=== PATIENT | male | born 1955 | race African-American/Black ===

== ENCOUNTER 2016-08-13 11:23 | Inpatient (IN) | payer MEDICARE, MEDICAID ==
[~2016-08-13] VITALS: Ht 180.3 cm; Wt 77.1 kg
[~2016-08-13 11:23] MED LIST: AMBIEN10 M1 ORAL; ASPIRIN81 MG ORAL; BIAXIN500 MG ORAL; DALIRESP500 MCG PO; LANTUS SOL100 UNIT/1 SUBQ; LINZESS145 MCG PO; METFORMIN HCL500 M1 ORAL; PREDNISONE10 MG ORAL; PREDNISONE5 M4 PO; SIMVASTATIN80 MG ORAL; SINGULAIR10 MG PO; SPIRIVA18 MCG INH; THEO-DUR200 MG PO
[2016-08-13] MEDS ORDERED: Albuterol ud Inhalation HHN ONE (11:30)
[2016-08-13] MEDS ORDERED: Solu-MEDROL 125mg Inj IVP ONE (11:30)
[2016-08-13] MEDS ORDERED: Ipratropium 0.02% Inh Soln 2.5ml UD HHN ONE (11:30)
[2016-08-13 12:33] LABS: APPEARANCE,URINE CLEAR; KETONES,URINE NEGATIVE (NEGATIVE); LEUKOCYTE ESTERASE ,URINE 3+ (NEGATIVE); NITRITE,URINE POSITIVE (NEGATIVE); PH,URINE 5 (4.5-8.0); PROTEIN,URINE NEGATIVE (NEGATIVE); UROBILINOGEN,URINE NORMAL MG/DL (0.0-1.0)
[2016-08-13 12:46] LABS: BACTERIA,URINE MANY /HPF; RBC,URINE 0-2 /HPF (0 - 0); SQUAMOUS EPITHELIAL CELL,UR OCCASIONAL /LPF (NONE/OCC); WBC,URINE 15-20 /HPF (0 - 0)
[2016-08-13 13:24] LABS: BASOPHILS % (AUTO) 1.4 % (0.0-2.0); EOSINOPHILS % (AUTO) 6.2 % (0.0-3.0); LYMPHOCYTES % (AUTO) 34.4 % (20.0-45.0); MEAN CORPUSCULAR HEMOGLOBIN 31.1 PG (27.0-31.0); MEAN CORPUSCULAR HGB CONC 33.3 G/DL (32.0-36.0); MEAN CORPUSCULAR VOLUME 94 FL (80-99); MEAN PLATELET VOLUME 6.5 FL (6.5-10.1); MONOCYTES % (AUTO) 13.1 % (1.0-10.0); NEUTROPHILS % (AUTO) 44.9 % (45.0-75.0); PLATELET COUNT 257 K/UL (150-450); RED CELL DISTRIBUTION WIDTH 12.4 % (11.6-14.8); WHITE BLOOD COUNT 4.1 K/UL (4.8-10.8)
[2016-08-13] MEDS ORDERED: cefTRIAXone 1 GM in NS 55 ML IVPB ONE (13:30)
[2016-08-13 13:33] LABS: TROPONIN I < 0.30 ng/mL (<=0.30)
[2016-08-13 13:36] LABS: ALANINE AMINOTRANSFERASE 38 U/L (3-41); ANION GAP 15 (5-15); ASPARTATE AMINO TRANSFERASE 37 U/L (5-40); CALCIUM 9.4 mg/dL (8.6-10.2); CARBON DIOXIDE 26 mEQ/L (20-30); CHLORIDE 101 mEQ/L (98-107); GLOMERULAR FILTRATION RATE > 60 mL/min (>60); HEMOLYSIS 10; SODIUM 142 mEQ/L (135-145); TOTAL PROTEIN 6.6 g/dL (6.6-8.7)
[2016-08-13 13:43] LABS: PROTHROMBIN TIME 10.2 SEC (9.30-11.50)
[2016-08-13 13:48] LABS: REFLEX LACTIC ACID YES OR NO YES
[2016-08-13 14:00] VITALS: BP 118/78
--- NOTE | 2016-08-13 14:17 | Diagnostic Imaging Report ---
Indication: COPD, shortness of breath, status post breathing treatment Technique: One view of the chest Comparison: 12/27/2015 Findings: Lungs are hyperinflated. Acute infiltrates, effusions, or congestion. Heart size is normal. Aorta is tortuous and ectatic. Upper mediastinum is unremarkable. No significant change Impression: No acute process Hyperinflation, consistent with COPD
--- NOTE | 2016-08-13 14:41 | Emergency Room Report ---
History of Present Illness General Chief Complaint: Dyspnea/Respdistress Source: Patient Present Illness HPI The patient presents with dyspnea. He has a history of COPD and has been coughing and short of breath. Does complain about some substernal chest pressure 2/10, not radiate. He states he took a handful of all his medications including his diabetes medicine this morning. He feels a little bit better at this time. He has a dry mouth and feels dizzy when he stands. Not on home O2. The patient is taking prednisone 5 mg and they've been unable to taper down lower than that. There is trouble controlling his blood sugar when he takes higher doses but needs to do this for treatment of his COPD. He does have a nebulizer at home. No fevers or chills. No NVD. No rashes. No joint pain, headache. No depression. Some dysuria - feels like he needs to urinate but produces little urine. No hematuria. Allergies: Coded Allergies: SHARK LIVER OIL (Unverified Allergy, Unknown, 12/27/15) Uncoded Allergies: SHARK (Allergy, Mild, RASH, 09/01/15) Patient History Past Medical History: see triage record Social History: Reports: smoking - prior Social History Narrative at home Reviewed Nursing Documentation: PMH: Agreed, PSxH: Agreed Nursing Documentation-PMH Hx Cardiac Problems: Yes Hx Asthma: Yes Hx COPD: Yes Hx Diabetes: Yes Hx Cancer: No Hx Gastrointestinal Problems: Yes - IBS Hx Neurological Problems: No Hx Cerebrovascular Accident: No - shingles Review of Systems All Other Systems: negative except mentioned in HPI Physical Exam Vital Signs Date Time Temp Pulse Resp B/P Pulse Ox O2 Delivery O2 Flow Rate FiO2 08/13/16 11:30 97.5 96 22 93/65 96 Room Air 08/13/16 11:46 40 Sp02 EP Interpretation: reviewed, normal General Appearance: well appearing, no apparent distress, GCS 15 Head: normocephalic Eyes: bilateral eye PERRL, bilateral eye normal inspection ENT: dry mucus membranes - slightly dry Neck: supple Respiratory: chest non-tender, no respiratory distress, wheezing, expiration Cardiovascular #1: regular rate, rhythm Cardiovascular #2: 2+ radial (R) Gastrointestinal: normal inspection, normal bowel sounds, non tender, no mass, non-distended Musculoskeletal: back normal, gait/station normal, normal range of motion Neurologic: alert, oriented x3, grossly normal Psychiatric: mood/affect normal Skin: normal inspection, warm/dry, other - plethoric Medical Decision Making Diagnostic Impression: Primary Impression: COPD (chronic obstructive pulmonary disease) Qualified Codes: J44.1 - Chronic obstructive pulmonary disease with (acute) exacerbation Additional Impressions: Diabetes Qualified Codes: E11.9 - Type 2 diabetes mellitus without complications UTI (urinary tract infection) Qualified Codes: N30.00 - Acute cystitis without hematuria ER Course Patient presents with chest pain dyspnea and wheezing. Differential includes acute myocardial infarction, acute coronary syndrome, COPD exacerbation, pneumonia, dehydration and hyperglycemia. Emergent evaluation EKG chest x-ray and labs be undertaken. In addition the patient will receive IV hydration, salmeterol and breathing treatments. Labs with normal WBC. Pyuria. EKG no acute injury. Normal troponin. Antibiotics begun for UTI. The patient still is dyspneic but improved. Patient needs observation after discussion with Dr. Andrea led to his request we admit the patient to the hospital. Discussed with Dr. Lopez. Laboratory Tests Test 08/13/16 12:16 08/13/16 12:52 Urine Color Yellow Urine Appearance Clear Urine pH 5 (4.5-8.0) Urine Specific [place] 1.025 (1.005-1.035) Urine Protein Negative (NEGATIVE) Urine Glucose (UA) Negative (NEGATIVE) Urine Ketones Negative (NEGATIVE) Urine Occult Blood Negative (NEGATIVE) Urine Nitrite Positive (NEGATIVE) H Urine Bilirubin Negative (NEGATIVE) Urine Urobilinogen Normal MG/DL (0.0-1.0) Urine Leukocyte Esterase 3+ (NEGATIVE) H Urine RBC 0-2 /HPF (0 - 0) H Urine WBC 15-20 /HPF (0 - 0) H Urine Squamous Epithelial Cells Occasional /LPF Urine Bacteria Many /HPF (NONE) H White Blood Count 4.1 K/UL (4.8-10.8) L Red Blood Count 4.80 M/UL (4.70-6.10) Hemoglobin 15.0 G/DL (14.2-18.0) Hematocrit 44.9 % (42.0-52.0) Mean Corpuscular Volume 94 FL (80-99) Mean Corpuscular Hemoglobin 31.1 PG (27.0-31.0) H Mean Corpuscular Hemoglobin Concent 33.3 G/DL (32.0-36.0) Red Cell Distribution Width 12.4 % (11.6-14.8) Platelet Count 257 K/UL (150-450) Mean Platelet Volume 6.5 FL (6.5-10.1) Neutrophils (%) (Auto) 44.9 % (45.0-75.0) L Lymphocytes (%) (Auto) 34.4 % (20.0-45.0) Monocytes (%) (Auto) 13.1 % (1.0-10.0) H Eosinophils (%) (Auto) 6.2 % (0.0-3.0) H Basophils (%) (Auto) 1.4 % (0.0-2.0) Prothrombin Time 10.2 SEC (9.30-11.50) Prothrombin Time INR 1.0 (0.9-1.1) PTT 30 SEC (23-33) Sodium Level 142 mEQ/L (135-145) Potassium Level 4.0 mEQ/L (3.4-4.9) Chloride Level 101 mEQ/L (98-107) Carbon Dioxide Level 26 mEQ/L (20-30) Anion Gap 15 (5-15) Blood Urea Nitrogen 7 mg/dL (7-23) Creatinine 1.0 mg/dL (0.7-1.2) Estimate Glomerular Filtration Rate > 60 mL/min (>60) Glucose Level 171 mg/dL (74-106) H Lactic Acid Level 2.70 mmol/L (0.66-2.22) H Calcium Level 9.4 mg/dL (8.6-10.2) Total Bilirubin < 0.2 mg/dL (0.0-1.2) Aspartate Amino Transferase (AST) 37 U/L (5-40) Alanine Aminotransferase (ALT) 38 U/L (3-41) Alkaline Phosphatase 53 U/L (40-129) Total Creatine Kinase 83 U/L (38-174) Troponin I < 0.30 ng/mL (<=0.30) Pro-B-Type Natriuretic Peptide 141 pg/mL (0-125) H Total Protein 6.6 g/dL (6.6-8.7) Albumin 3.4 g/dL (3.5-5.2) L Globulin 3.2 g/dL Albumin/Globulin Ratio 1.0 (1.0-2.7) Microbiology Date/Time Source Procedure Growth Status 08/13/16 12:52 Nasal Nares Influenza Types A,B Antigen (BETTINA) - Final Complete EKG Diagnostic Results Rate: normal Rhythm: NSR ST Segments: no acute changes - bifascicular block Rhythm Strip Diag. Results EP Interpretation: yes Rhythm: NSR, no PVC's, no ectopy Chest X-Ray Diagnostic Results EP Interpretation: Yes Findings: no effusion, no pneumothorax, other - scoleosis, COPD Number of Views: 1 Last Vital Signs Date Time Temp Pulse Resp B/P Pulse Ox O2 Delivery O2 Flow Rate FiO2 08/13/16 16:18 97.5 67 21 118/78 98 Room Air 40 Status: improved Disposition: ADMITTED INPATIENT Condition: Serious Referrals: JUAQUIN ANDREA (PCP) Myke Chang M.D. Aug 13, 2016 14:41
[2016-08-13 16:17] VITALS: BP 127/70
[2016-08-13] MEDS ORDERED: METFORMIN HCL500 M4 ORAL (16:31)
[2016-08-13] MEDS ORDERED: PREDNISONE5 M3 PO (16:37)
[2016-08-13] MEDS ORDERED: THEOPHYLLINE A300 MG PO (16:37)
[2016-08-13] MEDS ORDERED: AMANTADINE100 MG ORAL (16:44)
[2016-08-13] MEDS ORDERED: AMRIX15 MG ORAL (16:45)
[2016-08-13] MEDS ORDERED: BEVESPI AEROS10.7 GM IH (16:46)
[2016-08-13] MEDS ORDERED: BIAXIN500 MG ORAL (16:47)
[2016-08-13] MEDS ORDERED: AVODART0.5 MG ORAL (16:49)
[2016-08-13] MEDS ORDERED: FUROSEMIDE20 M1 ORAL (16:50)
[2016-08-13] MEDS ORDERED: GABAPENTIN600 MG ORAL (16:51)
[2016-08-13] MEDS ORDERED: METOPROLOL TART25 MG ORAL (16:52)
[2016-08-13] MEDS ORDERED: NASONEX17 GM NASAL (16:53)
[2016-08-13] MEDS ORDERED: NOVOLOG100 UNITS1 SQ (16:56)
[2016-08-13] MEDS ORDERED: OMEPRAZOLE20 M2 ORAL (16:57)
[2016-08-13] MEDS ORDERED: TRESIBA FL200 UNIT/1 SQ (16:59)
[2016-08-13] MEDS ORDERED: VENTOLIN HFA18 GM INH (16:59)
[2016-08-13] MEDS ORDERED: ROXICODONE30 M1 ORAL (17:03)
[2016-08-13] MEDS ORDERED: TAMSULOSIN HCL0.4 MG ORAL (17:05)
[2016-08-13] MEDS ORDERED: EXCEDRIN EXTRA1 EAC1 PO (17:08)
[2016-08-13] MEDS ORDERED: LEXAPRO20 MG ORAL (17:09)
[2016-08-13] MEDS ORDERED: POTASSIUM CHLO10 MEQ ORAL (17:10)
[2016-08-13] MEDS ORDERED: BELSOMRA20 MG PO (17:11)
[2016-08-13 20:00] VITALS: BP 134/93
[2016-08-13] MEDS ORDERED: Nitroglycerin Subl 0.4mg tab (Bottle Of 25) SL PRN (21:00)
[2016-08-13] MEDS ORDERED: Theophylline ER 100mg ORAL SCH (21:00)
[2016-08-13] MEDS ORDERED: Promethazine/Codeine 5ml UD ORAL PRN (21:00)
[2016-08-13] MEDS ORDERED: Ketorolac 30mg Inj IV PRN (21:00)
[2016-08-13] MEDS ORDERED: oxyCODONE 15mg IR tab ORAL PRN (21:00)
[2016-08-13] MEDS ORDERED: LORazepam Inj 2mg/ml 1ml IV PRN (21:00)
[2016-08-13] MEDS: Piperacillin/Tazobactam 3.375 GM in D5W 110 ML IVPB SCH (23:14)
[2016-08-13] MEDS: Tamsulosin 0.4mg cap ORAL SCH (23:15)
[2016-08-13] MEDS: Theophylline ER 100mg ORAL SCH (23:15)
[2016-08-13] MEDS: NovoLOG Insulin Flexpen SUBQ SCH (23:29)
[2016-08-13] MEDS: Heparin 5000 units/ml inj SUBQ SCH (23:30)
[2016-08-14] VITALS: BP 126/81
[2016-08-14] MEDS: Solu-MEDROL 125mg Inj IV SCH ×4 (00:17→17:04)
[2016-08-14 04:00] VITALS: BP 131/78
[2016-08-14] MEDS: Piperacillin/Tazobactam 3.375 GM in D5W 110 ML IVPB SCH ×3 (07:07→21:12)
[2016-08-14] MEDS: NovoLOG Insulin Flexpen SUBQ SCH ×4 (07:08→21:25)
[2016-08-14 08:04] VITALS: BP 122/83
[2016-08-14] MEDS: Amantadine 100mg cap ORAL SCH (09:23)
[2016-08-14] MEDS: Theophylline ER 100mg ORAL SCH ×2 (09:24→21:11)
[2016-08-14] MEDS: Metoprolol 25mg tab ORAL SCH (09:24)
[2016-08-14] MEDS: Heparin 5000 units/ml inj SUBQ SCH ×2 (09:26→21:14)
[2016-08-14 11:28] VITALS: BP 126/80
--- NOTE | 2016-08-14 13:55 | General Progress Note ---
Progress Note Progress Note .pt seen and examined full note will be dictated [id number] EUSEBIO HAYS Aug 14, 2016 13:55
[2016-08-14 16:00] VITALS: BP 139/82
[2016-08-14 19:00] VITALS: BP 132/88
--- NOTE | 2016-08-14 19:17 | Cardiology Progress Note ---
Assessment/Plan Assessment/Plan The patient is seen and examined, full consult note will be dictated. Objective Last 24 Hour Vital Signs Date Time Temp Pulse Resp B/P Pulse Ox O2 Delivery O2 Flow Rate FiO2 08/14/16 16:00 97.5 78 20 139/82 99 Room Air 08/14/16 14:30 73 16 95 Room Air 21 08/14/16 11:28 97.8 79 20 126/80 97 Room Air 08/14/16 11:20 68 16 97 Room Air 21 08/14/16 09:24 74 122/83 08/14/16 08:04 97.6 74 19 122/83 99 Room Air 08/14/16 07:53 79 17 Room Air 21 08/14/16 07:53 79 17 93 Room Air 21 08/14/16 07:53 21 08/14/16 04:00 97.2 73 22 131/78 99 Room Air 08/14/16 00:00 97.7 75 20 126/81 97 Room Air 08/13/16 20:00 97.5 75 16 134/93 99 Room Air Intake and Output 08/13/16 08/14/16 19:00 07:00 Intake Total 470.0 ml Output Total 20 ml 725 ml Balance -20 ml -255.0 ml Intake Oral 360 ml IV Total 110.0 ml Output Urine Total 20 ml 725 ml # Voids 3 Microbiology Date/Time Source Procedure Growth Status 08/13/16 12:52 Nasal Nares Influenza Types A,B Antigen (BETTINA) - Final Complete 08/13/16 12:16 Urine,Clean Catch Urine Culture - Preliminary Gram Negative Logan Resulted TAYLOR BUSTOS Aug 14, 2016 19:17
[2016-08-14] MEDS: Tamsulosin 0.4mg cap ORAL SCH (21:11)
--- NOTE | 2016-08-14 21:35 | History and Physical ---
History of Present Illness General Reason for Hospitalization: Dyspnea/Respdistress Present Illness Allergies: Coded Allergies: SHARK LIVER OIL (Unverified Allergy, Unknown, 12/27/15) Uncoded Allergies: SHARK (Allergy, Mild, RASH, 09/01/15) Medication History Scheduled Amantadine Hcl* (Symmetrel*), 100 MG ORAL DAILY, (Reported) Aspirin* (Aspirin*), 81 MG ORAL DAILY, (Reported) Clarithromycin (Clarithromycin), 500 MG ORAL TWICE A DAY, (Reported) Cyclobenzaprine Hcl (Amrix), 15 MG ORAL DAILY, (Reported) Dutasteride (Avodart), 0.5 MG ORAL QHS, (Reported) Escitalopram Oxalate* (Lexapro*), 20 MG ORAL DAILY, (Reported) Furosemide* (Lasix*), 20 MG ORAL DAILY, (Reported) Gabapentin* (Gabapentin*), 600 MG ORAL THREE TIMES A DAY, (Reported) Glycopyrrolate/Formoterol Fum (Bevespi Aerosphere Inhaler), 2 PUFFS IH BID, ( Reported) Insulin Degludec (Tresiba Flextouch U-200), 30 UNIT SQ QHS, (Reported) Linaclotide (Linzess), 145 MCG PO DAILY, (Reported) Metformin Hcl (Metformin Hcl Er), 500 MG ORAL DAILY, (Reported) Metoprolol Tartrate* (Metoprolol Tartrate*), 25 MG ORAL DAILY, (Reported) Omeprazole (Omeprazole), 20 MG ORAL DAILY, (Reported) Potassium Chloride* (K-Dur*), 10 MEQ ORAL DAILY, (Reported) Prednisone (Prednisone), 5 MG PO DAILY, (Reported) Roflumilast (Daliresp), 500 MCG PO DAILY, (Reported) Suvorexant (Belsomra), 20 MG PO QHS, (Reported) Tamsulosin Hcl (Tamsulosin Hcl*), 0.8 MG ORAL BEDTIME, (Reported) Theophylline Anhydrous (Theophylline Anhydrous), 300 MG PO TID, (Reported) Scheduled PRN Albuterol Sulfate (Ventolin Hfa), 2 PUFFS INH EVERY 6 HOURS PRN for Shortness of Breath, (Reported) Aspirin/Acetaminophen/Caffeine (Excedrin Extra Strength Caplet), 2 TAB PO DAILY PRN for For Pain, (Reported) Insulin Aspart (Novolog Flexpen), SQ TID PRN for SLIDING SCALE, (Reported) Mometasone Furoate (Nasonex), 2 SPRAYS NASAL DAILY PRN for ALLERGIES, (Reported) Oxycodone Hcl* (Roxicodone*), 30 MG ORAL Q8HR PRN for FOR PAIN (SEE PT COMMENTS) , (Reported) Discontinued Medications Insulin Glargine (Lantus), 10 SUBQ BEDTIME, (Reported) Discontinued Reason: Medication dose changed Montelukast Sodium* (Singulair*), 10 MG PO DAILY, (Reported) Discontinued Reason: Pt stopped taking med Prednisone* (Prednisone*), 10 MG ORAL DAILY, (Reported) Discontinued Reason: Prescription changed Simvastatin (Zocor), 80 MG ORAL BEDTIME, (Reported) Discontinued Reason: Pt stopped taking med Theophylline (Theophylline Anhydrous), 300 MG PO THREE TIMES A DAY, (Reported) Discontinued Reason: Prescription changed Tiotropium [place]* (Spiriva*), Unknown Dose INH DAILY, (Reported) Discontinued Reason: Pt stopped taking med Zolpidem Tartrate* (Ambien*), 10 MG ORAL HS PRN for Insomnia, (Reported) Discontinued Reason: Pt stopped taking med Patient History Healthcare decision maker Resuscitation status Full Code Advanced Directive on File No Physical Exam Last 24 Hour Vital Signs Date Time Temp Pulse Resp B/P Pulse Ox O2 Delivery O2 Flow Rate FiO2 08/14/16 19:00 97.2 73 20 132/88 98 Room Air 08/14/16 16:00 97.5 78 20 139/82 99 Room Air 08/14/16 14:30 73 16 95 Room Air 08/14/16 11:28 97.8 79 20 126/80 97 Room Air 08/14/16 11:20 68 16 97 Room Air 21 08/14/16 09:24 74 122/83 08/14/16 08:04 97.6 74 19 122/83 99 Room Air 08/14/16 07:53 79 17 Room Air 08/14/16 07:53 79 17 93 Room Air 08/14/16 07:53 21 08/14/16 04:00 97.2 73 22 131/78 99 Room Air 08/14/16 00:00 97.7 75 20 126/81 97 Room Air Intake and Output 08/13/16 08/14/16 19:00 07:00 Intake Total 470.0 ml Output Total 20 ml 725 ml Balance -20 ml -255.0 ml Intake Oral 360 ml IV Total 110.0 ml Output Urine Total 20 ml 725 ml # Voids 3 Height (Feet): 5 Height (Inches): 11.00 Weight (Pounds): 170 Medications Current Medications Medications (Trade) Dose Ordered Sig/Tom Route PRN Reason Start Time Stop Time Status Last Admin Dose Admin Albuterol/ Ipratropium (DuoNeb 0.5-3(2.5)mg/3ml) 3 ml Q4H PRN HHN dyspnea 08/13/16 21:00 08/18/16 20:59 Amantadine HCl (Symmetrel) 100 mg DAILY ORAL 08/14/16 09:00 09/13/16 08:59 08/14/16 09:23 Dextrose (Dextrose 50%) STAT PRN IV Hypoglycemia 08/13/16 21:00 09/12/16 20:59 Furosemide (Lasix) 20 mg DAILY ORAL 08/14/16 09:00 09/13/16 08:59 08/14/16 09:24 Heparin Sodium (Porcine) (Heparin 5000 units/ml) 5,000 units EVERY 12 HOURS SUBQ 08/13/16 22:00 09/12/16 21:59 08/14/16 21:14 Insulin Aspart (NovoLOG) BEFORE MEALS AND HS SUBQ 08/13/16 23:00 09/12/16 22:59 08/14/16 21:25 Ketorolac Tromethamine (Toradol 30mg) 30 mg Q8H PRN IV moderate pain 4-6 08/13/16 21:00 08/18/16 20:59 Lorazepam (Ativan 2mg/ml 1ml) 0.5 mg Q4H PRN IV For Anxiety 08/13/16 21:00 08/20/16 20:59 Methylprednisolone Sodium Succinate (Solu-MEDROL) 60 mg EVERY 6 HOURS IV 08/14/16 00:00 09/13/16 00:00 08/14/16 17:04 Metoprolol Tartrate (Lopressor) 25 mg DAILY ORAL 08/14/16 09:00 09/13/16 08:59 08/14/16 09:24 Morphine Sulfate (Morphine Sulfate) 2 mg Q4H PRN IVP severe pain 7-10 08/13/16 21:00 08/20/16 20:59 Nitroglycerin (Ntg) 0.4 mg Q5M X 3 DOSES PRN SL Prn Chest Pain 08/13/16 21:00 09/12/16 20:59 Ondansetron HCl (Zofran) 4 mg Q6H PRN IVP Nausea & Vomiting 08/13/16 21:00 09/12/16 20:59 Piperacillin Sod/ Tazobactam Sod/ Dextrose (Zosyn/D5W) 110 ml @ 27.5 mls/hr EVERY 8 HOURS IVPB 08/13/16 23:00 08/20/16 22:59 08/14/16 21:12 Promethazine HCl/ Codeine (Phenergan with Codeine) 5 ml Q6H PRN ORAL cough 08/13/16 21:00 09/12/16 20:59 Tamsulosin HCl (Flomax) 0.8 mg BEDTIME ORAL 08/13/16 22:00 09/12/16 21:59 08/14/16 21:11 Temazepam 15 mg 15 mg HSPRN PRN ORAL Insomnia 08/13/16 21:00 08/20/16 20:59 08/14/16 21:31 Theophylline (Jerome-Dur) 100 mg EVERY 12 HOURS ORAL 08/13/16 22:00 09/12/16 21:59 08/14/16 21:11 MERCED GRIFFITH Aug 14, 2016 21:35
[2016-08-15] VITALS: BP 133/88
[2016-08-15] MEDS: Solu-MEDROL 125mg Inj IV SCH ×4 (00:16→18:42)
[2016-08-15] MEDS: DuoNeb 0.5-3(2.5)mg/3ml neb HHN PRN (02:45)
[2016-08-15 04:00] VITALS: BP 136/81
--- NOTE | 2016-08-15 05:08 | History and Physical Report ---
DATE OF ADMISSION: 08/13/2016 PRIMARY DOCTOR: Phill Andrea M.D. REASON FOR ADMISSION: COPD with fever and shortness of breath. HISTORY OF PRESENT ILLNESS: The patient is a very pleasant, elderly male with past medical history significant for history of COPD, TIA, dyslipidemia, DJD, hypertension, who has presented to the emergency room complaining of increasing shortness of breath. Apparently, the patient misses medication for theophylline. His theophylline was missing from his medication refill. He started having shortness of breath thought a couple of days ago, got worse on the day of admission. Patient tried handheld nebulizer at home without improvement. She today presented to the emergency room complaining of shortness of breath, cough, also nasal congestion and consequently was admitted with a diagnosis of COPD exacerbation. I was called for admission. PAST MEDICAL HISTORY: Includin. Hypertension. 2. TIA. 3. Diabetes. 4. Peripheral vascular disease. 5. Osteomyelitis. 6. History of cervical and lumbar radiculopathy. 7. History of depression. PAST SURGICAL HISTORY: None. SOCIAL HISTORY: Quit smoking many years ago. There is no history of alcohol or drug use. FAMILY HISTORY: Noncontributory. MEDICATIONS: Includin. Amantadine 100 mg p.o. daily. 2. Lasix 20 mg p.o. daily. 3. Metoprolol 25 mg by mouth twice a day. 4. Flomax 0.8 mg by mouth daily. 5. Theophylline 100 mg p.o. daily. 6. Albuterol and Atrovent as needed pain. 7. 80 mg by mouth daily. 8. Lorazepam 0.5 mg p.o. daily. 9. Morphine sulfate 2 g IV q.4 hours as needed pain. 10. Promethazine 5 mL as needed cough. 11. Restoril 15 mg by mouth at night. FAMILY HISTORY: Noncontributory. REVIEW OF SYSTEMS: General: Denies any weight loss, weight gain, fever, chills, or night sweats. Head And Neck: Denies any dysphagia, odynophagia, blurry vision, headache, or neck stiffness. Pulmonary: Complained of shortness of breath, cough, and nasal congestion. Complained of wheezing. Denies any hemoptysis. Cardiovascular: Complained of midsternal chest pain, 2/10, not radiating was associated with shortness of breath. Gastrointestinal: Complained of decreased appetite. No melena and no hematemesis or hematochezia. Genitourinary: Denies any dysuria, frequency, or hematuria. Musculoskeletal: He denies any weakness or numbness. PHYSICAL EXAMINATION: VITAL SIGNS: The patient had temperature of 97 degrees, pulse of 74, blood pressure 122/83, respiratory rate of 19. HEAD AND NECK: No JVP. No LAD. No thyromegaly. Extraocular movement intact. Pupils are reactive to light and accommodation. LUNGS: He has bilateral wheezing and rhonchi. CARDIAC: Regular rate and rhythm. S1, S2, no murmur. No rub. ABDOMEN: Soft, nontender, and nondistended. EXTREMITIES: No edema. No clubbing. No cyanosis. LABORATORY VALUES: The patient has WBC count of 4.1, hemoglobin of 15, hematocrit of 44, and platelet count of 267,000. Chemistry reveals sodium 142, potassium 4, 104 chloride, 26 bicarbonate. BUN of 7 creatinine 1 and glucose of 171. AST of 37, ALT of 38, alkaline phosphatase of 53, BMP 141, total protein of 6.6, albumin of 3.3. UA revealed specific gravity of 10.5, pH of 6, nitrite positive, leukocyte esterase positive, WBC 15 to 20, and RBC of 0 to 2, bacteria many. The patient had a chest x-ray, which revealed no acute process. ASSESSMENT: 1. Acute chronic obstructive pulmonary disease exacerbation. 2. Urinary tract infection. 3. Acute coronary syndrome, mild chest pain. 4. Hypertension, well controlled. 5. Diabetes. 6. History of severe osteoarthritis. PLAN: I would restart the patient on IV antibiotics for possible urinary tract infection was also considered. Start the patient on steroids. Pulmonology consultation and Cardiology consultation. Restart the patient on medication and check the postvoiding residual volume. Fidelina Ayala M.D. DR: David JOB#: [id number] CC:
[2016-08-15] MEDS: Piperacillin/Tazobactam 3.375 GM in D5W 110 ML IVPB SCH ×3 (06:42→21:21)
[2016-08-15] MEDS: NovoLOG Insulin Flexpen SUBQ SCH ×4 (06:52→21:23)
[2016-08-15 08:19] VITALS: BP 132/75
[2016-08-15] MEDS: Metoprolol 25mg tab ORAL SCH (09:32)
[2016-08-15] MEDS: Theophylline ER 100mg ORAL SCH ×2 (09:32→21:26)
[2016-08-15] MEDS: Amantadine 100mg cap ORAL SCH (09:32)
[2016-08-15] MEDS: Heparin 5000 units/ml inj SUBQ SCH ×2 (09:39→21:22)
[2016-08-15 11:54] VITALS: BP 135/56
[2016-08-15 16:00] VITALS: BP 153/90
--- NOTE | 2016-08-15 16:09 | Nephrology Progress Note ---
Assessment/Plan Assessment 1. Acute chronic obstructive pulmonary disease exacerbation. 2. Urinary tract infection. 3. Acute coronary syndrome, mild chest pain. 4. Hypertension, well controlled. 5. Diabetes. 6. History of severe osteoarthritis. Plan plan to continue iv antibiotic continue steroid continue lasix breathing treatment monitoring electrolyte Subjective Constitutional: Reports: malaise, weakness HEENT: Reports: no symptoms Genitourinary: Reports: no symptoms Neurologic/Psychiatric: Reports: no symptoms Objective Objective Last 24 Hour Vital Signs Date Time Temp Pulse Resp B/P Pulse Ox O2 Delivery O2 Flow Rate FiO2 08/15/16 11:54 98.4 116 22 135/56 95 Nasal Cannula 2.0 08/15/16 09:32 76 132/75 08/15/16 08:19 97.7 76 20 132/75 99 08/15/16 04:00 97.5 74 18 136/81 97 Nasal Cannula 2.0 08/15/16 02:47 28 08/15/16 02:45 77 16 100 Nasal Cannula 2.0 28 08/15/16 00:00 97.5 81 20 133/88 96 Room Air 08/14/16 19:00 97.2 73 20 132/88 98 Room Air Intake and Output 08/14/16 08/15/16 19:00 07:00 Intake Total 670.0 ml 402.5 ml Output Total 500 ml Balance 170.0 ml 402.5 ml Intake Oral 450 ml 320 ml IV Total 220.0 ml 82.5 ml Output Urine Total 500 ml # Voids 6 # Bowel Movements 5 4 Height (Feet): 5 Height (Inches): 11.00 Weight (Pounds): 170 Objective HEAD AND NECK: No JVP. No LAD. No thyromegaly. Extraocular movement intact. Pupils are reactive to light and accommodation. LUNGS: He has bilateral wheezing and rhonchi. CARDIAC: Regular rate and rhythm. S1, S2, no murmur. No rub. ABDOMEN: Soft, nontender, and nondistended. EXTREMITIES: No edema. No clubbing. No cyanosis. EUSEBIO HAYS Aug 15, 2016 16:09
--- NOTE | 2016-08-15 18:32 | Cardiology Report ---
APPROVED REPORT EKG Measurement Heart [id number] Normal sinus rhythm Right bundle branch block Left anterior fascicular block Bifascicular block Abnormal ECG
[2016-08-15 19:00] VITALS: BP 151/83
[2016-08-15] MEDS: Tamsulosin 0.4mg cap ORAL SCH (21:26)
--- NOTE | 2016-08-15 22:41 | Pulmonology Progress Note ---
Subjective Allergies: Coded Allergies: SHARK LIVER OIL (Unverified Allergy, Unknown, 12/27/15) Uncoded Allergies: SHARK (Allergy, Mild, RASH, 09/01/15) Objective Last 24 Hour Vital Signs Date Time Temp Pulse Resp B/P Pulse Ox O2 Delivery O2 Flow Rate FiO2 08/15/16 19:00 97.0 75 20 151/83 97 Room Air 08/15/16 16:00 97.2 74 20 153/90 94 Room Air 08/15/16 11:54 98.4 116 22 135/56 95 Nasal Cannula 2.0 08/15/16 09:32 76 132/75 08/15/16 08:19 97.7 76 20 132/75 99 08/15/16 04:00 97.5 74 18 136/81 97 Nasal Cannula 2.0 08/15/16 02:47 28 08/15/16 02:45 77 16 100 Nasal Cannula 2.0 28 08/15/16 00:00 97.5 81 20 133/88 96 Room Air Intake and Output 08/14/16 08/15/16 19:00 07:00 Intake Total 670.0 ml 402.5 ml Output Total 500 ml Balance 170.0 ml 402.5 ml Intake Oral 450 ml 320 ml IV Total 220.0 ml 82.5 ml Output Urine Total 500 ml # Voids 6 # Bowel Movements 5 4 Microbiology Date/Time Source Procedure Growth Status 08/14/16 07:00 Sputum Gram Stain - Final Resulted 08/14/16 07:00 Sputum Culture - Preliminary Gram Negative Bacillus 1 Resulted 08/13/16 12:52 Nasal Nares Influenza Types A,B Antigen (BETTINA) - Final Complete 08/13/16 12:16 Urine,Clean Catch Urine Culture - Final Klebsiella Pneumoniae Complete Current Medications Medications (Trade) Dose Ordered Sig/Tom Route PRN Reason Start Time Stop Time Status Last Admin Dose Admin Albuterol/ Ipratropium (DuoNeb 0.5-3(2.5)mg/3ml) 3 ml Q4H PRN HHN dyspnea 08/13/16 21:00 08/18/16 20:59 08/15/16 02:45 Amantadine HCl (Symmetrel) 100 mg DAILY ORAL 08/14/16 09:00 09/13/16 08:59 08/15/16 09:32 Dextrose (Dextrose 50%) STAT PRN IV Hypoglycemia 08/13/16 21:00 09/12/16 20:59 Furosemide (Lasix) 20 mg DAILY ORAL 08/14/16 09:00 09/13/16 08:59 08/15/16 09:31 Heparin Sodium (Porcine) (Heparin 5000 units/ml) 5,000 units EVERY 12 HOURS SUBQ 08/13/16 22:00 09/12/16 21:59 08/15/16 21:22 Insulin Aspart (NovoLOG) BEFORE MEALS AND HS SUBQ 08/13/16 23:00 09/12/16 22:59 08/15/16 21:23 Ketorolac Tromethamine (Toradol 30mg) 30 mg Q8H PRN IV moderate pain 4-6 08/13/16 21:00 08/18/16 20:59 Lorazepam (Ativan 2mg/ml 1ml) 0.5 mg Q4H PRN IV For Anxiety 08/13/16 21:00 08/20/16 20:59 Methylprednisolone Sodium Succinate (Solu-MEDROL) 60 mg EVERY 6 HOURS IV 08/14/16 00:00 09/13/16 00:00 08/15/16 18:42 Metoprolol Tartrate (Lopressor) 25 mg DAILY ORAL 08/14/16 09:00 09/13/16 08:59 08/15/16 09:32 Morphine Sulfate (Morphine Sulfate) 2 mg Q4H PRN IVP severe pain 7-10 08/13/16 21:00 08/20/16 20:59 Nitroglycerin (Ntg) 0.4 mg Q5M X 3 DOSES PRN SL Prn Chest Pain 08/13/16 21:00 09/12/16 20:59 Ondansetron HCl (Zofran) 4 mg Q6H PRN IVP Nausea & Vomiting 08/13/16 21:00 09/12/16 20:59 Piperacillin Sod/ Tazobactam Sod/ Dextrose (Zosyn/D5W) 110 ml @ 27.5 mls/hr EVERY 8 HOURS IVPB 08/13/16 23:00 08/20/16 22:59 08/15/16 21:21 Promethazine HCl/ Codeine (Phenergan with Codeine) 5 ml Q6H PRN ORAL cough 08/13/16 21:00 09/12/16 20:59 Tamsulosin HCl (Flomax) 0.8 mg BEDTIME ORAL 08/13/16 22:00 09/12/16 21:59 08/15/16 21:26 Temazepam 15 mg 15 mg HSPRN PRN ORAL Insomnia 08/13/16 21:00 08/20/16 20:59 08/14/16 21:31 Theophylline (Jerome-Dur) 100 mg EVERY 12 HOURS ORAL 08/13/16 22:00 09/12/16 21:59 08/15/16 21:26 MERCED GRIFFITH Aug 15, 2016 22:41
--- NOTE | 2016-08-15 23:59 | Cardiology Progress Note ---
Assessment/Plan Assessment/Plan The patient is seen and examined, full consult note will be dictated. Subjective Subjective Denies any chest pain, dizziness. SOB with minimal activities Objective Last 24 Hour Vital Signs Date Time Temp Pulse Resp B/P Pulse Ox O2 Delivery O2 Flow Rate FiO2 08/15/16 19:00 97.0 75 20 151/83 97 Room Air 08/15/16 16:00 97.2 74 20 153/90 94 Room Air 08/15/16 11:54 98.4 116 22 135/56 95 Nasal Cannula 2.0 08/15/16 09:32 76 132/75 08/15/16 08:19 97.7 76 20 132/75 99 08/15/16 04:00 97.5 74 18 136/81 97 Nasal Cannula 2.0 08/15/16 02:47 28 08/15/16 02:45 77 16 100 Nasal Cannula 2.0 28 08/15/16 00:00 97.5 81 20 133/88 96 Room Air Intake and Output 08/14/16 08/15/16 19:00 07:00 Intake Total 670.0 ml 402.5 ml Output Total 500 ml Balance 170.0 ml 402.5 ml Intake Oral 450 ml 320 ml IV Total 220.0 ml 82.5 ml Output Urine Total 500 ml # Voids 6 # Bowel Movements 5 4 Microbiology Date/Time Source Procedure Growth Status 08/14/16 07:00 Sputum Gram Stain - Final Resulted 08/14/16 07:00 Sputum Culture - Preliminary Gram Negative Bacillus 1 Resulted 08/13/16 12:52 Nasal Nares Influenza Types A,B Antigen (BETTINA) - Final Complete 08/13/16 12:16 Urine,Clean Catch Urine Culture - Final Klebsiella Pneumoniae Complete TAYLOR BUSTOS Aug 15, 2016 23:59
[2016-08-16] VITALS (7 sets, daily range): BP systolic 129–164; BP diastolic 86–108
--- NOTE | 2016-08-16 00:11 | Cardiology Progress Note ---
Assessment/Plan Assessment/Plan 1. Hypotension, medication induced with pre-syncopal event, continue hydration 2. Acute exacerbation of COPD 3. PAD 4. DM 5. Hx of TIA, start ASA and statins. Subjective Subjective Denies any chest pain, dizziness. SOB with minimal activities Objective Last 24 Hour Vital Signs Date Time Temp Pulse Resp B/P Pulse Ox O2 Delivery O2 Flow Rate FiO2 08/15/16 19:00 97.0 75 20 151/83 97 Room Air 08/15/16 16:00 97.2 74 20 153/90 94 Room Air 08/15/16 11:54 98.4 116 22 135/56 95 Nasal Cannula 2.0 08/15/16 09:32 76 132/75 08/15/16 08:19 97.7 76 20 132/75 99 08/15/16 04:00 97.5 74 18 136/81 97 Nasal Cannula 2.0 08/15/16 02:47 28 08/15/16 02:45 77 16 100 Nasal Cannula 2.0 28 Intake and Output 08/15/16 08/16/16 19:00 07:00 Intake Total 960 ml 320 ml Balance 960 ml 320 ml Intake Oral 960 ml 320 ml # Voids 3 4 Microbiology Date/Time Source Procedure Growth Status 08/14/16 07:00 Sputum Gram Stain - Final Resulted 08/14/16 07:00 Sputum Culture - Preliminary Gram Negative Bacillus 1 Resulted 08/13/16 12:52 Nasal Nares Influenza Types A,B Antigen (BETTINA) - Final Complete 08/13/16 12:16 Urine,Clean Catch Urine Culture - Final Klebsiella Pneumoniae Complete Objective HEAD AND NECK: No thyromegaly. Extraocular movement intact. Pupils are reactive to light and accommodation. NECK: No JVP, no carotid bruit, upstroke 2+ B/L LUNGS: He has bilateral wheezing and rhonchi. CARDIAC: Regular rate and rhythm. Normal S1, S2, no murmur, gallops or rubs. ABDOMEN: Soft, nontender, and nondistended, + BS EXTREMITIES: No edema, clubbing or cyanosis. TAYLOR BUSTOS Aug 16, 2016 00:11
[2016-08-16] MEDS: Solu-MEDROL 125mg Inj IV SCH ×4 (00:12→17:12)
[2016-08-16] MEDS: DuoNeb 0.5-3(2.5)mg/3ml neb HHN PRN ×2 (00:30→14:50)
[2016-08-16] MEDS: NovoLOG Insulin Flexpen SUBQ SCH ×4 (06:19→21:00)
[2016-08-16] MEDS: Piperacillin/Tazobactam 3.375 GM in D5W 110 ML IVPB SCH ×3 (06:20→22:31)
[2016-08-16 07:18] LABS: MEAN CORPUSCULAR HEMOGLOBIN 31.7 PG (27.0-31.0); MEAN CORPUSCULAR HGB CONC 34.9 G/DL (32.0-36.0); MEAN CORPUSCULAR VOLUME 91 FL (80-99); MEAN PLATELET VOLUME 6.5 FL (6.5-10.1); PLATELET COUNT 269 K/UL (150-450); RED BLOOD COUNT 4.75 M/UL (4.70-6.10); RED CELL DISTRIBUTION WIDTH 11.6 % (11.6-14.8); WHITE BLOOD COUNT 10.6 K/UL (4.8-10.8)
[2016-08-16 07:46] LABS: ALANINE AMINOTRANSFERASE 27 U/L (3-41); ANION GAP 13 (5-15); ASPARTATE AMINO TRANSFERASE 19 U/L (5-40); CALCIUM 8.6 mg/dL (8.6-10.2); CARBON DIOXIDE 27 mEQ/L (20-30); CHLORIDE 100 mEQ/L (98-107); CREATININE 0.9 mg/dL (0.7-1.2); GLOMERULAR FILTRATION RATE > 60 mL/min (>60); HEMOLYSIS 5; PHOSPHORUS 3.6 mg/dL (2.5-4.8); POTASSIUM 3.6 mEQ/L (3.4-4.9); SODIUM 140 mEQ/L (135-145); TOTAL PROTEIN 6.3 g/dL (6.6-8.7)
[2016-08-16] MEDS: Metoprolol 25mg tab ORAL SCH (08:54)
[2016-08-16] MEDS: Aspirin EC 81mg tab ORAL SCH (08:54)
[2016-08-16] MEDS: Theophylline ER 100mg ORAL SCH ×2 (08:54→22:31)
[2016-08-16] MEDS: Heparin 5000 units/ml inj SUBQ SCH ×2 (08:59→21:00)
[2016-08-16] MEDS: Amantadine 100mg cap ORAL SCH (09:11)
[2016-08-16 11:12] LABS: BAND NEUTROPHILS % (MANUAL) 0 % (0-8); BASOPHILS % (MANUAL) 0 % (0-2); EOSINOPHILS % (MANUAL) 0 % (0-3); LYMPHOCYTES % (MANUAL) 4 % (20-45); NEUTROPHILS % (MANUAL) 94 % (45-75); PLATELET ESTIMATE ADEQUATE; PLATELET MORPHOLOGY NORMAL; TOTAL CELLS COUNTED 100
--- NOTE | 2016-08-16 15:49 | Nephrology Progress Note ---
Assessment/Plan Assessment 1. Acute chronic obstructive pulmonary disease exacerbation. 2. Urinary tract infection. 3. Acute coronary syndrome, mild chest pain. 4. Hypertension, well controlled. 5. Diabetes. 6. History of severe osteoarthritis. Plan plan to continue iv antibiotic continue steroid continue lasix breathing treatment monitoring electrolyte Subjective Constitutional: Reports: no symptoms HEENT: Reports: no symptoms Genitourinary: Reports: no symptoms Neurologic/Psychiatric: Reports: no symptoms Subjective alert and wake feeling better still has cough and sob Objective Objective Last 24 Hour Vital Signs Date Time Temp Pulse Resp B/P Pulse Ox O2 Delivery O2 Flow Rate FiO2 08/16/16 14:40 78 20 98 Nasal Cannula 2.0 28 08/16/16 14:40 81 20 99 Nasal Cannula 2.0 28 08/16/16 11:48 98.4 66 21 145/91 96 Room Air 08/16/16 08:54 81 129/86 08/16/16 08:15 98.3 81 22 129/86 96 Room Air 08/16/16 04:30 159/108 08/16/16 04:00 96.8 66 20 164/107 97 Nasal Cannula 2.0 08/16/16 00:23 80 20 99 Nasal Cannula 2.0 28 08/16/16 00:22 76 20 98 Nasal Cannula 2.0 28 08/16/16 00:00 97.0 72 20 162/97 98 Nasal Cannula 2.0 08/15/16 19:00 97.0 75 20 151/83 97 Room Air 08/15/16 16:00 97.2 74 20 153/90 94 Room Air Intake and Output 08/15/16 08/16/16 19:00 07:00 Intake Total 960 ml 680.0 ml Output Total 700 ml Balance 960 ml -20.0 ml Intake Oral 960 ml 570 ml IV Total 110.0 ml Output Urine Total 700 ml # Voids 3 4 Laboratory Tests 08/16/16 06:30: White Blood Count 10.6, Red Blood Count 4.75, Hemoglobin 15.1, Hematocrit 43.2, Mean Corpuscular Volume 91, Mean Corpuscular Hemoglobin 31.7H, Mean Corpuscular Hemoglobin Concent 34.9, Red Cell Distribution Width 11.6, Platelet Count 269, Mean Platelet Volume 6.5, Neutrophils (%) (Auto) , Lymphocytes (%) (Auto) , Monocytes (%) (Auto) , Eosinophils (%) (Auto) , Basophils (%) (Auto) , Differential Total Cells Counted 100, Neutrophils % (Manual) 94H, Lymphocytes % (Manual) 4L, Monocytes % (Manual) 2, Eosinophils % (Manual) 0, Basophils % ( Manual) 0, Band Neutrophils 0, Platelet Estimate Adequate, Platelet Morphology Normal, Red Blood Cell Morphology Normal, Sodium Level 140, Potassium Level 3.6 , Chloride Level 100, Carbon Dioxide Level 27, Anion Gap 13, Blood Urea Nitrogen 12, Creatinine 0.9, Estimat Glomerular Filtration Rate > 60, Glucose Level 213H, Calcium Level 8.6, Phosphorus Level 3.6, Magnesium Level 2.0, Total Bilirubin 0.3, Aspartate Amino Transf (AST/SGOT) 19, Alanine Aminotransferase ( ALT/SGPT) 27, Alkaline Phosphatase 51, Total Protein 6.3L, Albumin 3.2L, Globulin 3.1, Albumin/Globulin Ratio 1.0 Height (Feet): 5 Height (Inches): 11.00 Weight (Pounds): 170 Objective HEAD AND NECK: No JVP. No LAD. No thyromegaly. Extraocular movement intact. Pupils are reactive to light and accommodation. LUNGS: He has bilateral wheezing and rhonchi. CARDIAC: Regular rate and rhythm. S1, S2, no murmur. No rub. ABDOMEN: Soft, nontender, and nondistended. EXTREMITIES: No edema. No clubbing. No cyanosis. EUSEBIO HAYS Aug 16, 2016 15:49
--- NOTE | 2016-08-16 18:53 | Cardiology Progress Note ---
Assessment/Plan Assessment/Plan 1. Hypotension, ?medication induced, pre-syncopal event,responded to hydration , creat down from 1.2 to 0.9. 2. Acute exacerbation of COPD 3. PAD, on ASA 4. DM, continue ASA and atorvastatin. 5. Hx of TIA, start ASA and statins. Subjective Subjective Transferred from telemetry to med-surg unit. SOB with minimal activities Objective Last 24 Hour Vital Signs Date Time Temp Pulse Resp B/P Pulse Ox O2 Delivery O2 Flow Rate FiO2 08/16/16 16:00 97.7 76 18 152/92 96 Room Air 08/16/16 14:40 78 20 98 Nasal Cannula 2.0 28 08/16/16 14:40 81 20 99 Nasal Cannula 2.0 28 08/16/16 11:48 98.4 66 21 145/91 96 Room Air 08/16/16 08:54 81 129/86 08/16/16 08:15 98.3 81 22 129/86 96 Room Air 08/16/16 04:30 159/108 08/16/16 04:00 96.8 66 20 164/107 97 Nasal Cannula 2.0 08/16/16 00:23 80 20 99 Nasal Cannula 2.0 28 08/16/16 00:22 76 20 98 Nasal Cannula 2.0 28 08/16/16 00:00 97.0 72 20 162/97 98 Nasal Cannula 2.0 08/15/16 19:00 97.0 75 20 151/83 97 Room Air Intake and Output 08/15/16 08/16/16 19:00 07:00 Intake Total 960 ml 680.0 ml Output Total 700 ml Balance 960 ml -20.0 ml Intake Oral 960 ml 570 ml IV Total 110.0 ml Output Urine Total 700 ml # Voids 3 4 2D Echo: Echo form 2014 shows normal LV systolic function withLVEF 55%, RVSP 9 mMHg. Laboratory Tests Test 08/16/16 06:30 White Blood Count 10.6 K/UL (4.8-10.8) Red Blood Count 4.75 M/UL (4.70-6.10) Hemoglobin 15.1 G/DL (14.2-18.0) Hematocrit 43.2 % (42.0-52.0) Mean Corpuscular Volume 91 FL (80-99) Mean Corpuscular Hemoglobin 31.7 PG (27.0-31.0) H Mean Corpuscular Hemoglobin Concent 34.9 G/DL (32.0-36.0) Red Cell Distribution Width 11.6 % (11.6-14.8) Platelet Count 269 K/UL (150-450) Mean Platelet Volume 6.5 FL (6.5-10.1) Neutrophils (%) (Auto) % (45.0-75.0) Lymphocytes (%) (Auto) % (20.0-45.0) Monocytes (%) (Auto) % (1.0-10.0) Eosinophils (%) (Auto) % (0.0-3.0) Basophils (%) (Auto) % (0.0-2.0) Differential Total Cells Counted 100 Neutrophils % (Manual) 94 % (45-75) H Lymphocytes % (Manual) 4 % (20-45) L Monocytes % (Manual) 2 % (1-10) Eosinophils % (Manual) 0 % (0-3) Basophils % (Manual) 0 % (0-2) Band Neutrophils 0 % (0-8) Platelet Estimate Adequate Platelet Morphology Normal Red Blood Cell Morphology Normal Sodium Level 140 mEQ/L (135-145) Potassium Level 3.6 mEQ/L (3.4-4.9) Chloride Level 100 mEQ/L (98-107) Carbon Dioxide Level 27 mEQ/L (20-30) Anion Gap 13 (5-15) Blood Urea Nitrogen 12 mg/dL (7-23) Creatinine 0.9 mg/dL (0.7-1.2) Estimat Glomerular Filtration Rate > 60 mL/min (>60) Glucose Level 213 mg/dL (74-106) H Calcium Level 8.6 mg/dL (8.6-10.2) Phosphorus Level 3.6 mg/dL (2.5-4.8) Magnesium Level 2.0 mg/dL (1.7-2.5) Total Bilirubin 0.3 mg/dL (0.0-1.2) Aspartate Amino Transf (AST/SGOT) 19 U/L (5-40) Alanine Aminotransferase (ALT/SGPT) 27 U/L (3-41) Alkaline Phosphatase 51 U/L (40-129) Total Protein 6.3 g/dL (6.6-8.7) L Albumin 3.2 g/dL (3.5-5.2) L Globulin 3.1 g/dL Albumin/Globulin Ratio 1.0 (1.0-2.7) Microbiology Date/Time Source Procedure Growth Status 08/14/16 07:00 Sputum Gram Stain - Final Resulted 08/14/16 07:00 Sputum Culture - Preliminary Klebsiella Pneumoniae Gram Negative Bacillus 1 Resulted Objective HEAD AND NECK: No thyromegaly. Extraocular movement intact. Pupils are reactive to light and accommodation. NECK: No JVP, no carotid bruit, upstroke 2+ B/L LUNGS: He has bilateral wheezing and rhonchi, no breath sounds CARDIAC: Regular rate and rhythm. Normal S1, S2, no murmur, gallops or rubs. ABDOMEN: Soft, nontender, and nondistended, + BS EXTREMITIES: No edema, clubbing or cyanosis. TAYLOR BUSTOS Aug 16, 2016 18:53
[2016-08-16] MEDS: Tamsulosin 0.4mg cap ORAL SCH (22:31)
[2016-08-16] MEDS: Morphine Sulfate 2mg/ml Inj IVP PRN (22:41)
--- NOTE | 2016-08-16 23:24 | Pulmonology Progress Note ---
Subjective Allergies: Coded Allergies: SHARK LIVER OIL (Unverified Allergy, Unknown, 12/27/15) Uncoded Allergies: SHARK (Allergy, Mild, RASH, 09/01/15) Objective Last 24 Hour Vital Signs Date Time Temp Pulse Resp B/P Pulse Ox O2 Delivery O2 Flow Rate FiO2 08/16/16 19:00 96.4 74 20 149/86 98 Room Air 08/16/16 16:00 97.7 76 18 152/92 96 Room Air 08/16/16 14:40 78 20 98 Nasal Cannula 2.0 28 08/16/16 14:40 81 20 99 Nasal Cannula 2.0 28 08/16/16 11:48 98.4 66 21 145/91 96 Room Air 08/16/16 08:54 81 129/86 08/16/16 08:15 98.3 81 22 129/86 96 Room Air 08/16/16 04:30 159/108 08/16/16 04:00 96.8 66 20 164/107 97 Nasal Cannula 2.0 08/16/16 00:23 80 20 99 Nasal Cannula 2.0 28 08/16/16 00:22 76 20 98 Nasal Cannula 2.0 28 08/16/16 00:00 97.0 72 20 162/97 98 Nasal Cannula 2.0 Intake and Output 08/15/16 08/16/16 19:00 07:00 Intake Total 960 ml 680.0 ml Output Total 700 ml Balance 960 ml -20.0 ml Intake Oral 960 ml 570 ml IV Total 110.0 ml Output Urine Total 700 ml # Voids 3 4 Microbiology Date/Time Source Procedure Growth Status 08/14/16 07:00 Sputum Gram Stain - Final Resulted 08/14/16 07:00 Sputum Culture - Preliminary Klebsiella Pneumoniae Gram Negative Bacillus 1 Resulted Laboratory Tests 08/16/16 06:30: White Blood Count 10.6, Red Blood Count 4.75, Hemoglobin 15.1, Hematocrit 43.2, Mean Corpuscular Volume 91, Mean Corpuscular Hemoglobin 31.7H, Mean Corpuscular Hemoglobin Concent 34.9, Red Cell Distribution Width 11.6, Platelet Count 269, Mean Platelet Volume 6.5, Neutrophils (%) (Auto) , Lymphocytes (%) (Auto) , Monocytes (%) (Auto) , Eosinophils (%) (Auto) , Basophils (%) (Auto) , Differential Total Cells Counted 100, Neutrophils % (Manual) 94H, Lymphocytes % (Manual) 4L, Monocytes % (Manual) 2, Eosinophils % (Manual) 0, Basophils % ( Manual) 0, Band Neutrophils 0, Platelet Estimate Adequate, Platelet Morphology Normal, Red Blood Cell Morphology Normal, Sodium Level 140, Potassium Level 3.6 , Chloride Level 100, Carbon Dioxide Level 27, Anion Gap 13, Blood Urea Nitrogen 12, Creatinine 0.9, Estimat Glomerular Filtration Rate > 60, Glucose Level 213H, Calcium Level 8.6, Phosphorus Level 3.6, Magnesium Level 2.0, Total Bilirubin 0.3, Aspartate Amino Transf (AST/SGOT) 19, Alanine Aminotransferase ( ALT/SGPT) 27, Alkaline Phosphatase 51, Total Protein 6.3L, Albumin 3.2L, Globulin 3.1, Albumin/Globulin Ratio 1.0 Current Medications Medications (Trade) Dose Ordered Sig/Tom Route PRN Reason Start Time Stop Time Status Last Admin Dose Admin Albuterol/ Ipratropium (DuoNeb 0.5-3(2.5)mg/3ml) 3 ml Q4H PRN HHN dyspnea 08/13/16 21:00 08/18/16 20:59 08/16/16 14:50 Amantadine HCl (Symmetrel) 100 mg DAILY ORAL 08/14/16 09:00 09/13/16 08:59 08/16/16 09:11 Aspirin (Ecotrin) 81 mg DAILY ORAL 08/16/16 09:00 09/15/16 08:59 08/16/16 08:54 Atorvastatin Calcium (Lipitor) 40 mg BEDTIME ORAL 08/16/16 21:00 09/15/16 20:59 08/16/16 22:31 Dextrose (Dextrose 50%) STAT PRN IV Hypoglycemia 08/13/16 21:00 09/12/16 20:59 Heparin Sodium (Porcine) (Heparin 5000 units/ml) 5,000 units EVERY 12 HOURS SUBQ 08/13/16 22:00 09/12/16 21:59 08/16/16 08:59 Insulin Aspart (NovoLOG) BEFORE MEALS AND HS SUBQ 08/13/16 23:00 09/12/16 22:59 08/16/16 16:45 Ketorolac Tromethamine (Toradol 30mg) 30 mg Q8H PRN IV moderate pain 4-6 08/13/16 21:00 08/18/16 20:59 Lorazepam (Ativan 2mg/ml 1ml) 0.5 mg Q4H PRN IV For Anxiety 08/13/16 21:00 08/20/16 20:59 Methylprednisolone Sodium Succinate (Solu-MEDROL) 60 mg EVERY 6 HOURS IV 08/14/16 00:00 09/13/16 00:00 08/16/16 17:12 Metoprolol Tartrate (Lopressor) 25 mg DAILY ORAL 08/14/16 09:00 09/13/16 08:59 08/16/16 08:54 Morphine Sulfate (Morphine Sulfate) 2 mg Q4H PRN IVP severe pain 7-10 08/13/16 21:00 08/20/16 20:59 08/16/16 22:41 Nitroglycerin (Ntg) 0.4 mg Q5M X 3 DOSES PRN SL Prn Chest Pain 08/13/16 21:00 09/12/16 20:59 Ondansetron HCl (Zofran) 4 mg Q6H PRN IVP Nausea & Vomiting 08/13/16 21:00 09/12/16 20:59 Piperacillin Sod/ Tazobactam Sod/ Dextrose (Zosyn/D5W) 110 ml @ 27.5 mls/hr EVERY 8 HOURS IVPB 08/13/16 23:00 08/20/16 22:59 08/16/16 22:31 Promethazine HCl/ Codeine (Phenergan with Codeine) 5 ml Q6H PRN ORAL cough 08/13/16 21:00 09/12/16 20:59 Tamsulosin HCl (Flomax) 0.8 mg BEDTIME ORAL 08/13/16 22:00 09/12/16 21:59 08/16/16 22:31 Temazepam 15 mg 15 mg HSPRN PRN ORAL Insomnia 08/13/16 21:00 08/20/16 20:59 08/16/16 00:12 Theophylline (Jerome-Dur) 200 mg Q12HR ORAL 08/16/16 21:00 09/15/16 20:59 08/16/16 22:31 MERCED GRIFFITH Aug 16, 2016 23:24
[2016-08-17] VITALS: BP 152/94
[2016-08-17] MEDS: Solu-MEDROL 125mg Inj IV SCH ×3 (00:13→12:02)
[2016-08-17 04:00] VITALS: BP 158/96
[2016-08-17] MEDS: Piperacillin/Tazobactam 3.375 GM in D5W 110 ML IVPB SCH ×3 (05:36→21:32)
[2016-08-17] MEDS: NovoLOG Insulin Flexpen SUBQ SCH ×4 (06:15→21:34)
[2016-08-17 07:52] VITALS: BP 133/72
[2016-08-17] MEDS: Aspirin EC 81mg tab ORAL SCH (08:07)
[2016-08-17] MEDS: Amantadine 100mg cap ORAL SCH (08:07)
[2016-08-17] MEDS: Theophylline ER 100mg ORAL SCH ×2 (08:08→21:31)
[2016-08-17] MEDS: Metoprolol 25mg tab ORAL SCH (08:08)
[2016-08-17] MEDS: Heparin 5000 units/ml inj SUBQ SCH ×2 (08:09→21:34)
[2016-08-17] MEDS: DuoNeb 0.5-3(2.5)mg/3ml neb HHN SCH ×4 (10:33→23:34)
[2016-08-17 11:39] VITALS: BP 128/73
[2016-08-17] MEDS: Morphine Sulfate 2mg/ml Inj IVP PRN (15:50)
[2016-08-17 16:00] VITALS: BP 148/98
--- NOTE | 2016-08-17 19:10 | Nephrology Progress Note ---
Assessment/Plan Assessment 1. Acute chronic obstructive pulmonary disease exacerbation. 2. Urinary tract infection. 3. Acute coronary syndrome, mild chest pain. 4. Hypertension, well controlled. 5. Diabetes. 6. History of severe osteoarthritis. Plan plan to continue iv antibiotic continue steroid continue lasix breathing treatment monitoring electrolyte Subjective Constitutional: Reports: no symptoms HEENT: Reports: no symptoms Genitourinary: Reports: no symptoms Neurologic/Psychiatric: Reports: no symptoms Subjective alert and wake feeling better still has cough and sob requesting ATC albuterol Objective Objective Last 24 Hour Vital Signs Date Time Temp Pulse Resp B/P Pulse Ox O2 Delivery O2 Flow Rate FiO2 08/17/16 16:00 98.1 72 22 148/98 95 Room Air 08/17/16 15:00 75 18 100 Room Air 08/17/16 14:50 72 20 97 Room Air 08/17/16 11:39 97.7 69 21 128/73 99 Room Air 08/17/16 10:40 83 20 99 Room Air 08/17/16 10:30 83 20 98 Room Air 08/17/16 08:08 71 133/72 08/17/16 07:52 97.7 71 21 133/72 97 Room Air 08/17/16 04:00 97.5 18 158/96 98 Room Air 08/17/16 00:00 97.7 20 152/94 97 Room Air Intake and Output 08/16/16 08/17/16 19:00 07:00 Intake Total 822.5 ml 464.0 ml Output Total 1050 ml Balance 822.5 ml -586.0 ml Intake Oral 720 ml 360 ml IV Total 102.5 ml 104.0 ml Output Urine Total 1050 ml # Voids 5 # Bowel Movements 1 Height (Feet): 5 Height (Inches): 11.00 Weight (Pounds): 170 Objective HEAD AND NECK: No JVP. No LAD. No thyromegaly. Extraocular movement intact. Pupils are reactive to light and accommodation. LUNGS: He has bilateral wheezing and rhonchi. CARDIAC: Regular rate and rhythm. S1, S2, no murmur. No rub. ABDOMEN: Soft, nontender, and nondistended. EXTREMITIES: No edema. No clubbing. No cyanosis. EUSEBIO HAYS Aug 17, 2016 19:10
[2016-08-17] MEDS: Tamsulosin 0.4mg cap ORAL SCH (21:31)
--- NOTE | 2016-08-17 22:49 | Pulmonology Progress Note ---
Subjective Allergies: Coded Allergies: SHARK LIVER OIL (Unverified Allergy, Unknown, 12/27/15) Uncoded Allergies: SHARK (Allergy, Mild, RASH, 09/01/15) Objective Last 24 Hour Vital Signs Date Time Temp Pulse Resp B/P Pulse Ox O2 Delivery O2 Flow Rate FiO2 08/17/16 20:51 70 20 Room Air 21 08/17/16 20:50 70 20 100 Room Air 08/17/16 20:46 67 20 97 Room Air 08/17/16 16:00 98.1 72 22 148/98 95 Room Air 08/17/16 15:00 75 18 100 Room Air 08/17/16 14:50 72 20 97 Room Air 08/17/16 11:39 97.7 69 21 128/73 99 Room Air 08/17/16 10:40 83 20 99 Room Air 08/17/16 10:30 83 20 98 Room Air 21 08/17/16 08:08 71 133/72 08/17/16 07:52 97.7 71 21 133/72 97 Room Air 08/17/16 04:00 97.5 18 158/96 98 Room Air 08/17/16 00:00 97.7 20 152/94 97 Room Air Intake and Output 08/16/16 08/17/16 19:00 07:00 Intake Total 822.5 ml 464.0 ml Output Total 1050 ml Balance 822.5 ml -586.0 ml Intake Oral 720 ml 360 ml IV Total 102.5 ml 104.0 ml Output Urine Total 1050 ml # Voids 5 # Bowel Movements 1 Current Medications Medications (Trade) Dose Ordered Sig/Tom Route PRN Reason Start Time Stop Time Status Last Admin Dose Admin Albuterol/ Ipratropium (DuoNeb 0.5-3(2.5)mg/3ml) 3 ml Q4HRT HHN 08/17/16 11:00 08/22/16 10:59 08/17/16 20:46 Amantadine HCl (Symmetrel) 100 mg DAILY ORAL 08/14/16 09:00 09/13/16 08:59 08/17/16 08:07 Aspirin (Ecotrin) 81 mg DAILY ORAL 08/16/16 09:00 09/15/16 08:59 08/17/16 08:07 Atorvastatin Calcium (Lipitor) 40 mg BEDTIME ORAL 08/16/16 21:00 09/15/16 20:59 08/17/16 21:31 Dextrose (Dextrose 50%) STAT PRN IV Hypoglycemia 08/13/16 21:00 09/12/16 20:59 Heparin Sodium (Porcine) (Heparin 5000 units/ml) 5,000 units EVERY 12 HOURS SUBQ 08/13/16 22:00 09/12/16 21:59 08/17/16 21:34 Insulin Aspart (NovoLOG) BEFORE MEALS AND HS SUBQ 08/13/16 23:00 09/12/16 22:59 08/17/16 21:34 Ketorolac Tromethamine (Toradol 30mg) 30 mg Q8H PRN IV moderate pain 4-6 08/13/16 21:00 08/18/16 20:59 Lorazepam (Ativan 2mg/ml 1ml) 0.5 mg Q4H PRN IV For Anxiety 08/13/16 21:00 08/20/16 20:59 Methylprednisolone Sodium Succinate (Solu-MEDROL) 60 mg DAILY IV 08/18/16 09:00 09/17/16 08:59 Metoprolol Tartrate (Lopressor) 25 mg DAILY ORAL 08/14/16 09:00 09/13/16 08:59 08/17/16 08:08 Morphine Sulfate (Morphine Sulfate) 2 mg Q4H PRN IVP severe pain 7-10 08/13/16 21:00 08/20/16 20:59 08/17/16 15:50 Nitroglycerin (Ntg) 0.4 mg Q5M X 3 DOSES PRN SL Prn Chest Pain 08/13/16 21:00 09/12/16 20:59 Ondansetron HCl (Zofran) 4 mg Q6H PRN IVP Nausea & Vomiting 08/13/16 21:00 09/12/16 20:59 Piperacillin Sod/ Tazobactam Sod/ Dextrose (Zosyn/D5W) 110 ml @ 27.5 mls/hr EVERY 8 HOURS IVPB 08/13/16 23:00 08/20/16 22:59 08/17/16 21:32 Promethazine HCl/ Codeine (Phenergan with Codeine) 5 ml Q6H PRN ORAL cough 08/13/16 21:00 09/12/16 20:59 Tamsulosin HCl (Flomax) 0.8 mg BEDTIME ORAL 08/13/16 22:00 09/12/16 21:59 08/17/16 21:31 Temazepam 15 mg 15 mg HSPRN PRN ORAL Insomnia 08/13/16 21:00 08/20/16 20:59 08/16/16 00:12 Theophylline (Jerome-Dur) 200 mg Q12HR ORAL 08/16/16 21:00 09/15/16 20:59 08/17/16 21:31 MERCED GRIFFITH Aug 17, 2016 22:49
[2016-08-18] VITALS: BP 141/96
[2016-08-18] MEDS: DuoNeb 0.5-3(2.5)mg/3ml neb HHN SCH ×6 (03:18→22:50)
[2016-08-18 04:00] VITALS: BP 128/76
--- NOTE | 2016-08-18 04:09 | Consultation ---
DATE OF CONSULTATION: 08/17/2016 HISTORY OF PRESENT ILLNESS: This is a 60-year-old black male patient with history of depression, who has been admitted for COPD exacerbation. During the evaluation, the patient is presenting with anxiety and insomnia. He stated that he constantly went over the issues that he has been dealing throughout the day. He denied any current depressive symptoms. No manic or psychotic symptoms. PAST PSYCHIATRIC HISTORY: Diagnosed with depression and has been treated with antidepressants in the past. No history of psychiatric hospitalization. PAST MEDICAL HISTORY: Transient ischemic attack, hypertension, diabetes, peripheral vascular disease, osteomyelitis and cervical and lumbar radiculopathy. ALLERGIES: No known drug allergies. MEDICATIONS: At home include Restoril 15 mg, Ativan 0.5 mg daily, morphine, promethazine, albuterol, , Flomax, metoprolol, Lasix and amantadine. SUBSTANCE ABUSE HISTORY: No history of illicit drug use or alcohol. MENTAL STATUS EXAMINATION: The patient is alert and oriented x4, pleasant and calm. Mood is neutral to anxious. Affect is constricted. Congruent with mood. Thought process is circumstantial. Thought content, no suicidal or homicidal ideations. No delusions. No auditory or visual hallucinations. Insight and judgment is fair. ASSESSMENT: 1. Anxiety disorder. 2. Major depressive disorder. PLAN: 1. The patient will be continued on Restoril and Ativan. 2. We will start the patient on low-dose of selective serotonin reuptake inhibitors. 3. We will continue follow and readjust the medications. Ananth Costello M.D. DR: JONATHAN JOB#: [id number] CC:
[2016-08-18] MEDS: Piperacillin/Tazobactam 3.375 GM in D5W 110 ML IVPB SCH ×3 (05:12→21:30)
[2016-08-18] MEDS: NovoLOG Insulin Flexpen SUBQ SCH ×4 (06:20→21:34)
[2016-08-18 08:07] VITALS: BP 109/62
[2016-08-18] MEDS: Theophylline ER 100mg ORAL SCH ×2 (08:45→21:30)
[2016-08-18] MEDS: Aspirin EC 81mg tab ORAL SCH (08:45)
[2016-08-18] MEDS: Amantadine 100mg cap ORAL SCH (08:45)
[2016-08-18] MEDS: Solu-MEDROL 125mg Inj IV SCH (08:46)
[2016-08-18] MEDS: Metoprolol 25mg tab ORAL SCH (08:46)
[2016-08-18] MEDS: Heparin 5000 units/ml inj SUBQ SCH ×2 (08:47→21:32)
[2016-08-18 12:15] VITALS: BP 114/70
[2016-08-18 16:00] VITALS: BP 150/90
[2016-08-18 19:00] VITALS: BP 139/90
[2016-08-18] MEDS: Tamsulosin 0.4mg cap ORAL SCH (21:31)
--- NOTE | 2016-08-18 22:34 | Pulmonology Progress Note ---
Subjective Allergies: Coded Allergies: SHARK LIVER OIL (Unverified Allergy, Unknown, 12/27/15) Uncoded Allergies: SHARK (Allergy, Mild, RASH, 09/01/15) Objective Last 24 Hour Vital Signs Date Time Temp Pulse Resp B/P Pulse Ox O2 Delivery O2 Flow Rate FiO2 08/18/16 19:45 76 18 100 Room Air 08/18/16 19:34 70 18 97 Room Air 08/18/16 19:00 97.9 81 20 139/90 98 Room Air 08/18/16 16:00 98.1 76 20 150/90 98 Room Air 08/18/16 15:27 72 18 100 Room Air 08/18/16 15:17 68 16 98 Room Air 08/18/16 12:15 97.9 80 21 114/70 96 Room Air 08/18/16 10:35 86 18 100 Room Air 08/18/16 10:25 75 18 96 Room Air 08/18/16 08:46 83 109/62 08/18/16 08:07 97.1 83 21 109/62 97 Room Air 08/18/16 07:51 82 20 100 Room Air 08/18/16 07:43 81 18 95 Room Air 08/18/16 04:00 97.3 74 20 128/76 99 Room Air 08/18/16 03:21 66 20 100 Room Air 08/18/16 03:20 67 20 97 Room Air 21 08/18/16 00:00 97.5 79 18 141/96 98 Room Air 08/17/16 23:37 62 20 100 Room Air 08/17/16 23:36 63 20 97 Room Air 21 Intake and Output 08/17/16 08/18/16 19:00 07:00 Intake Total 590.0 ml 535.0 ml Balance 590.0 ml 535.0 ml Intake Oral 480 ml 480 ml IV Total 110.0 ml 55.0 ml # Voids 2 7 # Bowel Movements 2 Current Medications Medications (Trade) Dose Ordered Sig/Tom Route PRN Reason Start Time Stop Time Status Last Admin Dose Admin Albuterol/ Ipratropium (DuoNeb 0.5-3(2.5)mg/3ml) 3 ml Q4HRT HHN 08/17/16 11:00 08/22/16 10:59 08/18/16 19:34 Amantadine HCl (Symmetrel) 100 mg DAILY ORAL 08/14/16 09:00 09/13/16 08:59 08/18/16 08:45 Aspirin (Ecotrin) 81 mg DAILY ORAL 08/16/16 09:00 09/15/16 08:59 08/18/16 08:45 Atorvastatin Calcium (Lipitor) 40 mg BEDTIME ORAL 08/16/16 21:00 09/15/16 20:59 08/18/16 21:30 Dextrose (Dextrose 50%) STAT PRN IV Hypoglycemia 08/13/16 21:00 09/12/16 20:59 Heparin Sodium (Porcine) (Heparin 5000 units/ml) 5,000 units EVERY 12 HOURS SUBQ 08/13/16 22:00 09/12/16 21:59 08/18/16 21:32 Insulin Aspart (NovoLOG) BEFORE MEALS AND HS SUBQ 08/13/16 23:00 09/12/16 22:59 08/18/16 21:34 Lorazepam (Ativan 2mg/ml 1ml) 0.5 mg Q4H PRN IV For Anxiety 08/13/16 21:00 08/20/16 20:59 Methylprednisolone Sodium Succinate (Solu-MEDROL) 60 mg DAILY IV 08/18/16 09:00 09/17/16 08:59 08/18/16 08:46 Metoprolol Tartrate (Lopressor) 25 mg DAILY ORAL 08/14/16 09:00 09/13/16 08:59 08/18/16 08:46 Morphine Sulfate (Morphine Sulfate) 2 mg Q4H PRN IVP severe pain 7-10 08/13/16 21:00 08/20/16 20:59 08/17/16 15:50 Nitroglycerin (Ntg) 0.4 mg Q5M X 3 DOSES PRN SL Prn Chest Pain 08/13/16 21:00 09/12/16 20:59 Ondansetron HCl (Zofran) 4 mg Q6H PRN IVP Nausea & Vomiting 08/13/16 21:00 09/12/16 20:59 Piperacillin Sod/ Tazobactam Sod/ Dextrose (Zosyn/D5W) 110 ml @ 27.5 mls/hr EVERY 8 HOURS IVPB 08/13/16 23:00 08/20/16 22:59 08/18/16 21:30 Promethazine HCl/ Codeine (Phenergan with Codeine) 5 ml Q6H PRN ORAL cough 08/13/16 21:00 09/12/16 20:59 Tamsulosin HCl (Flomax) 0.8 mg BEDTIME ORAL 08/13/16 22:00 09/12/16 21:59 08/18/16 21:31 Temazepam 15 mg 15 mg HSPRN PRN ORAL Insomnia 08/13/16 21:00 08/20/16 20:59 08/16/16 00:12 Theophylline (Jerome-Dur) 200 mg Q12HR ORAL 08/16/16 21:00 09/15/16 20:59 08/18/16 21:30 MERCED GRIFFITH Aug 18, 2016 22:34
--- NOTE | 2016-08-18 23:31 | Cardiology Progress Note ---
Assessment/Plan Assessment/Plan 1. Hypotension, resolved, probably medication induced, responded well to hydration, creat down from 1.2 to 0.9. 2. Acute exacerbation of COPD 3. PAD, on ASA 4. DM, continue ASA and atorvastatin. 5. Hx of TIA, start ASA and statins. Subjective Subjective Had episodes of diarrhea SOB with minimal activities. Objective Last 24 Hour Vital Signs Date Time Temp Pulse Resp B/P Pulse Ox O2 Delivery O2 Flow Rate FiO2 08/18/16 23:01 67 18 100 Room Air 08/18/16 22:52 64 20 97 Room Air 08/18/16 22:50 67 20 97 Room Air 08/18/16 19:45 76 18 100 Room Air 08/18/16 19:34 70 18 97 Room Air 08/18/16 19:00 97.9 81 20 139/90 98 Room Air 08/18/16 16:00 98.1 76 20 150/90 98 Room Air 08/18/16 15:27 72 18 100 Room Air 08/18/16 15:17 68 16 98 Room Air 08/18/16 12:15 97.9 80 21 114/70 96 Room Air 08/18/16 10:35 86 18 100 Room Air 08/18/16 10:25 75 18 96 Room Air 08/18/16 08:46 83 109/62 08/18/16 08:07 97.1 83 21 109/62 97 Room Air 08/18/16 07:51 82 20 100 Room Air 08/18/16 07:43 81 18 95 Room Air 08/18/16 04:00 97.3 74 20 128/76 99 Room Air 08/18/16 03:21 66 20 100 Room Air 08/18/16 03:20 67 20 97 Room Air 08/18/16 00:00 97.5 79 18 141/96 98 Room Air 08/17/16 23:37 62 20 100 Room Air 08/17/16 23:36 63 20 97 Room Air 21 Intake and Output 08/17/16 08/18/16 19:00 07:00 Intake Total 590.0 ml 535.0 ml Balance 590.0 ml 535.0 ml Intake Oral 480 ml 480 ml IV Total 110.0 ml 55.0 ml # Voids 2 7 # Bowel Movements 2 2D Echo: Echo form 2015 shows normal LV systolic function withLVEF 55%, RVSP 9 mMHg. Objective HEAD AND NECK: No thyromegaly. Extraocular movement intact. Pupils are reactive to light and accommodation. NECK: No JVP, no carotid bruit, upstroke 2+ B/L LUNGS: He has bilateral wheezing and rhonchi, no breath sounds CARDIAC: Regular rate and rhythm. Normal S1, S2, no murmur, gallops or rubs. ABDOMEN: Soft, nontender, and nondistended, + BS EXTREMITIES: No edema, clubbing or cyanosis. TAYLOR BUSTOS Aug 18, 2016 23:31
[2016-08-19 00:32] VITALS: BP 139/93
[2016-08-19] MEDS: DuoNeb 0.5-3(2.5)mg/3ml neb HHN SCH ×6 (03:00→23:00)
[2016-08-19 04:00] VITALS: BP 138/88
[2016-08-19] MEDS: Piperacillin/Tazobactam 3.375 GM in D5W 110 ML IVPB SCH ×3 (06:17→21:10)
[2016-08-19] MEDS: NovoLOG Insulin Flexpen SUBQ SCH ×4 (06:18→21:07)
[2016-08-19 08:00] VITALS: BP 99/60
[2016-08-19] MEDS: Metoprolol 25mg tab ORAL SCH (08:47)
[2016-08-19] MEDS: Amantadine 100mg cap ORAL SCH (08:50)
[2016-08-19] MEDS: Aspirin EC 81mg tab ORAL SCH (08:50)
[2016-08-19] MEDS: Theophylline ER 100mg ORAL SCH ×2 (08:50→21:01)
[2016-08-19] MEDS: Solu-MEDROL 125mg Inj IV SCH (08:50)
[2016-08-19] MEDS: Heparin 5000 units/ml inj SUBQ SCH ×2 (08:51→21:07)
--- NOTE | 2016-08-19 10:13 | Nephrology Progress Note ---
Assessment/Plan Assessment 1. Acute chronic obstructive pulmonary disease exacerbation. 2. Urinary tract infection. 3. Acute coronary syndrome, mild chest pain. 4. Hypertension, well controlled. 5. Diabetes. 6. History of severe osteoarthritis. Plan plan to continue iv antibiotic continue steroid continue lasix breathing treatment monitoring electrolyte Subjective Constitutional: Reports: no symptoms HEENT: Reports: no symptoms Genitourinary: Reports: no symptoms Neurologic/Psychiatric: Reports: no symptoms Subjective alert and wake feeling better still has cough and sob but sig improved Objective Objective Last 24 Hour Vital Signs Date Time Temp Pulse Resp B/P Pulse Ox O2 Delivery O2 Flow Rate FiO2 08/19/16 08:47 98 99/60 08/19/16 08:00 97.3 98 21 99/60 97 Room Air 08/19/16 07:11 92 18 98 Room Air 08/19/16 07:01 90 18 95 Room Air 08/19/16 04:00 97.5 77 21 138/88 98 Room Air 08/19/16 03:26 Room Air 08/19/16 03:26 Room Air 08/19/16 00:32 98.1 65 20 139/93 99 Nasal Cannula 08/18/16 23:01 67 18 100 Room Air 21 08/18/16 22:52 64 20 97 Room Air 21 08/18/16 22:50 67 20 97 Room Air 21 08/18/16 19:45 76 18 100 Room Air 21 08/18/16 19:34 70 18 97 Room Air 21 08/18/16 19:00 97.9 81 20 139/90 98 Room Air 08/18/16 16:00 98.1 76 20 150/90 98 Room Air 08/18/16 15:27 72 18 100 Room Air 21 08/18/16 15:17 68 16 98 Room Air 08/18/16 12:15 97.9 80 21 114/70 96 Room Air 08/18/16 10:35 86 18 100 Room Air 21 08/18/16 10:25 75 18 96 Room Air 21 Intake and Output 08/18/16 08/19/16 19:00 07:00 Intake Total 857.5 ml 562.5 ml Output Total 700 ml Balance 857.5 ml -137.5 ml Intake Oral 720 ml 480 ml IV Total 137.5 ml 82.5 ml Output Urine Total 700 ml # Voids 2 4 # Bowel Movements 1 Height (Feet): 5 Height (Inches): 11.00 Weight (Pounds): 170 Objective HEAD AND NECK: No JVP. No LAD. No thyromegaly. Extraocular movement intact. Pupils are reactive to light and accommodation. LUNGS: He has bilateral wheezing and rhonchi. CARDIAC: Regular rate and rhythm. S1, S2, no murmur. No rub. ABDOMEN: Soft, nontender, and nondistended. EXTREMITIES: No edema. No clubbing. No cyanosis. EUSEBIO HAYS Aug 19, 2016 10:13
[2016-08-19 12:42] VITALS: BP 116/59
[2016-08-19 16:00] VITALS: BP 139/81
[2016-08-19] MEDS ORDERED: NS 275ml ONE (17:46)
[2016-08-19 19:00] VITALS: BP 148/79
[2016-08-19] MEDS: Tamsulosin 0.4mg cap ORAL SCH (21:01)
--- NOTE | 2016-08-19 21:34 | Cardiology Progress Note ---
Assessment/Plan Assessment/Plan 1. Hypotension, resolved, probably medication induced, responded well to hydration, creat down from 1.2 to 0.9. 2. PAD, on ASA 3. DM, continue ASA and atorvastatin. 4. Hx of TIA, start ASA and statins. Subjective Subjective No cardiac events Objective Last 24 Hour Vital Signs Date Time Temp Pulse Resp B/P Pulse Ox O2 Delivery O2 Flow Rate FiO2 08/19/16 19:32 82 20 100 Room Air 21 08/19/16 19:20 81 18 95 Room Air 21 08/19/16 16:00 97.5 79 20 139/81 97 Room Air 08/19/16 15:02 92 18 98 Room Air 08/19/16 14:52 90 18 95 Room Air 08/19/16 12:42 98.2 70 19 116/59 99 Room Air 08/19/16 10:57 92 18 98 Room Air 08/19/16 10:47 90 18 95 Room Air 08/19/16 08:47 98 99/60 08/19/16 08:00 97.3 98 21 99/60 97 Room Air 08/19/16 07:11 92 18 98 Room Air 08/19/16 07:01 90 18 95 Room Air 08/19/16 04:00 97.5 77 21 138/88 98 Room Air 08/19/16 03:26 Room Air 08/19/16 03:26 Room Air 08/19/16 00:32 98.1 65 20 139/93 99 Nasal Cannula 08/18/16 23:01 67 18 100 Room Air 21 08/18/16 22:52 64 20 97 Room Air 21 08/18/16 22:50 67 20 97 Room Air 21 Intake and Output 08/18/16 08/19/16 19:00 07:00 Intake Total 857.5 ml 562.5 ml Output Total 700 ml Balance 857.5 ml -137.5 ml Intake Oral 720 ml 480 ml IV Total 137.5 ml 82.5 ml Output Urine Total 700 ml # Voids 2 4 # Bowel Movements 1 2D Echo: Echo form 2014 shows normal LV systolic function withLVEF 55%, RVSP 9 mMHg Objective HEAD AND NECK: No thyromegaly. Extraocular movement intact. Pupils are reactive to light and accommodation. NECK: No JVP, no carotid bruit, upstroke 2+ B/L LUNGS: He has bilateral wheezing and rhonchi, no breath sounds CARDIAC: Regular rate and rhythm. Normal S1, S2, no murmur, gallops or rubs. ABDOMEN: Soft, nontender, and nondistended, + BS EXTREMITIES: No edema, clubbing or cyanosis. TAYLOR BUSTOS Aug 19, 2016 21:33
--- NOTE | 2016-08-19 21:38 | Progress Note ---
SUBJECTIVE: The patient in no acute distress. Calm and cooperative. No behavior issues. He is still suffering from anxiety, however, symptoms could be related to his COPD. The patient was agitated in regards to anxiety and COPD relation. MENTAL STATUS EXAMINATION: The patient is alert and oriented x3. Calm and pleasant. Mood is slightly anxious. Affect is full range. Congruent mood. Thought process is concrete. Thought content, no suicidal or homicidal ideation. ASSESSMENT: 1. Anxiety disorder. 2. Depression by history. PLAN: The patient will be continued current medication. Provide the patient with supportive therapy and reality orientation. Ananth Costello M.D. DR: Anatoliy JOB#: [id number] CC:
--- NOTE | 2016-08-19 22:10 | Pulmonology Progress Note ---
Subjective Allergies: Coded Allergies: SHARK LIVER OIL (Unverified Allergy, Unknown, 12/27/15) Uncoded Allergies: SHARK (Allergy, Mild, RASH, 09/01/15) Objective Last 24 Hour Vital Signs Date Time Temp Pulse Resp B/P Pulse Ox O2 Delivery O2 Flow Rate FiO2 08/19/16 19:32 82 20 100 Room Air 21 08/19/16 19:20 81 18 95 Room Air 21 08/19/16 16:00 97.5 79 20 139/81 97 Room Air 08/19/16 15:02 92 18 98 Room Air 08/19/16 14:52 90 18 95 Room Air 08/19/16 12:42 98.2 70 19 116/59 99 Room Air 08/19/16 10:57 92 18 98 Room Air 08/19/16 10:47 90 18 95 Room Air 08/19/16 08:47 98 99/60 08/19/16 08:00 97.3 98 21 99/60 97 Room Air 08/19/16 07:11 92 18 98 Room Air 08/19/16 07:01 90 18 95 Room Air 08/19/16 04:00 97.5 77 21 138/88 98 Room Air 08/19/16 03:26 Room Air 08/19/16 03:26 Room Air 08/19/16 00:32 98.1 65 20 139/93 99 Nasal Cannula 08/18/16 23:01 67 18 100 Room Air 08/18/16 22:52 64 20 97 Room Air 21 08/18/16 22:50 67 20 97 Room Air 21 Intake and Output 08/18/16 08/19/16 19:00 07:00 Intake Total 857.5 ml 562.5 ml Output Total 700 ml Balance 857.5 ml -137.5 ml Intake Oral 720 ml 480 ml IV Total 137.5 ml 82.5 ml Output Urine Total 700 ml # Voids 2 4 # Bowel Movements 1 Current Medications Medications (Trade) Dose Ordered Sig/Tom Route PRN Reason Start Time Stop Time Status Last Admin Dose Admin Albuterol/ Ipratropium (DuoNeb 0.5-3(2.5)mg/3ml) 3 ml Q4HRT HHN 08/17/16 11:00 08/22/16 10:59 08/19/16 19:20 Amantadine HCl (Symmetrel) 100 mg DAILY ORAL 08/14/16 09:00 09/13/16 08:59 08/19/16 08:50 Aspirin (Ecotrin) 81 mg DAILY ORAL 08/16/16 09:00 09/15/16 08:59 08/19/16 08:50 Atorvastatin Calcium (Lipitor) 40 mg BEDTIME ORAL 08/16/16 21:00 09/15/16 20:59 08/19/16 21:01 Dextrose (Dextrose 50%) STAT PRN IV Hypoglycemia 08/13/16 21:00 09/12/16 20:59 Escitalopram Oxalate (Lexapro) 10 mg DAILY ORAL 08/20/16 09:00 09/19/16 08:59 Heparin Sodium (Porcine) (Heparin 5000 units/ml) 5,000 units EVERY 12 HOURS SUBQ 08/13/16 22:00 09/12/16 21:59 08/19/16 21:07 Insulin Aspart (NovoLOG) BEFORE MEALS AND HS SUBQ 08/13/16 23:00 09/12/16 22:59 08/19/16 21:07 Lorazepam (Ativan 2mg/ml 1ml) 0.5 mg Q4H PRN IV For Anxiety 08/13/16 21:00 08/20/16 20:59 Methylprednisolone Sodium Succinate (Solu-MEDROL) 50 mg DAILY IV 08/20/16 09:00 09/19/16 08:59 Metoprolol Tartrate (Lopressor) 25 mg DAILY ORAL 08/14/16 09:00 09/13/16 08:59 08/18/16 08:46 Morphine Sulfate (Morphine Sulfate) 2 mg Q4H PRN IVP severe pain 7-10 08/13/16 21:00 08/20/16 20:59 08/17/16 15:50 Nitroglycerin (Ntg) 0.4 mg Q5M X 3 DOSES PRN SL Prn Chest Pain 08/13/16 21:00 09/12/16 20:59 Ondansetron HCl (Zofran) 4 mg Q6H PRN IVP Nausea & Vomiting 08/13/16 21:00 09/12/16 20:59 Piperacillin Sod/ Tazobactam Sod/ Dextrose (Zosyn/D5W) 110 ml @ 27.5 mls/hr EVERY 8 HOURS IVPB 08/13/16 23:00 08/20/16 22:59 08/19/16 21:10 Promethazine HCl/ Codeine (Phenergan with Codeine) 5 ml Q6H PRN ORAL cough 08/13/16 21:00 09/12/16 20:59 Tamsulosin HCl (Flomax) 0.8 mg BEDTIME ORAL 08/13/16 22:00 09/12/16 21:59 08/19/16 21:01 Temazepam 15 mg 15 mg HSPRN PRN ORAL Insomnia 08/13/16 21:00 08/20/16 20:59 08/19/16 21:05 Theophylline (Jerome-Dur) 200 mg Q12HR ORAL 08/16/16 21:00 09/15/16 20:59 08/19/16 21:01 MERCED GRIFFITH Aug 19, 2016 22:10
[2016-08-20] VITALS: BP 136/87
[2016-08-20] MEDS: DuoNeb 0.5-3(2.5)mg/3ml neb HHN SCH (03:00)
[2016-08-20 04:00] VITALS: BP 125/83
[2016-08-20] MEDS: Piperacillin/Tazobactam 3.375 GM in D5W 110 ML IVPB SCH (05:54)
[2016-08-20] MEDS: NovoLOG Insulin Flexpen SUBQ SCH ×2 (06:00→12:19)
[2016-08-20 06:57] LABS: BASOPHILS % (AUTO) 0.6 % (0.0-2.0); EOSINOPHILS % (AUTO) 2.5 % (0.0-3.0); LYMPHOCYTES % (AUTO) 23.6 % (20.0-45.0); MEAN CORPUSCULAR HEMOGLOBIN 31.4 PG (27.0-31.0); MEAN CORPUSCULAR HGB CONC 33.5 G/DL (32.0-36.0); MEAN CORPUSCULAR VOLUME 94 FL (80-99); MEAN PLATELET VOLUME 6.9 FL (6.5-10.1); MONOCYTES % (AUTO) 8.8 % (1.0-10.0); NEUTROPHILS % (AUTO) 64.6 % (45.0-75.0); PLATELET COUNT 259 K/UL (150-450); RED BLOOD COUNT 4.84 M/UL (4.70-6.10); RED CELL DISTRIBUTION WIDTH 12.5 % (11.6-14.8)
[2016-08-20 07:21] LABS: ANION GAP 12 (5-15); CALCIUM 8.7 mg/dL (8.6-10.2); CARBON DIOXIDE 31 mEQ/L (20-30); CHLORIDE 102 mEQ/L (98-107); CREATININE 1.1 mg/dL (0.7-1.2); GLOMERULAR FILTRATION RATE > 60 mL/min (>60); HEMOLYSIS 8; POTASSIUM 3.6 mEQ/L (3.4-4.9); SODIUM 145 mEQ/L (135-145)
[2016-08-20 07:33] VITALS: BP 121/77
[2016-08-20 07:33] LABS: HEMOGLOBIN A1C 7.1 % (< 6.0)
--- NOTE | 2016-08-20 07:33 | Pulmonology Progress Note ---
Assessment/Plan Assessment/Plan ASSESSMENT COPD exacerbation UTI Hypotension- resolved hx of hypertension DM PAD Hx of TIA anxiety major depression PLAN OF CARE MS floor O2 HHN prn sputum cx + Klebsiella, Courtney urine cx + Klebsiella abx IV steroids and taper CXR c/w COPD antitussive prn on ASA and statin cardio follows hypotension resolved, on low dose BB, would recommend to change to another antihypertensive , not recommended BB in patient with COPD, especially during exacerbation DVT prophylaxis BS management with SS of insulin, HgA1c pending for this am Bowel regimen psych follows psych meds as per psychiatrist management stable for dc from pulmonary standpoint: Medrol dose pack, inhalers, s/p Rx with antibiotic x 7 days-completed today case discussed and evaluated by supervising physician Subjective Allergies: Coded Allergies: SHARK LIVER OIL (Unverified Allergy, Unknown, 12/27/15) Uncoded Allergies: SHARK (Allergy, Mild, RASH, 09/01/15) Subjective afebrile, no leukocytosis on RA, stable pulse oximetry no signs of respiratory distress Objective Last 24 Hour Vital Signs Date Time Temp Pulse Resp B/P Pulse Ox O2 Delivery O2 Flow Rate FiO2 08/20/16 04:00 97.2 74 18 125/83 97 Room Air 08/20/16 03:33 Room Air 08/20/16 03:32 Room Air 08/20/16 00:00 96.8 78 18 136/87 99 Room Air 08/19/16 23:25 Room Air 08/19/16 23:25 Room Air 08/19/16 19:32 82 20 100 Room Air 08/19/16 19:20 81 18 95 Room Air 21 08/19/16 19:00 97.9 97 20 148/79 98 Room Air 08/19/16 16:00 97.5 79 20 139/81 97 Room Air 08/19/16 15:02 92 18 98 Room Air 08/19/16 14:52 90 18 95 Room Air 08/19/16 12:42 98.2 70 19 116/59 99 Room Air 08/19/16 10:57 92 18 98 Room Air 08/19/16 10:47 90 18 95 Room Air 08/19/16 08:47 98 99/60 08/19/16 08:00 97.3 98 21 99/60 97 Room Air Intake and Output 08/19/16 08/20/16 19:00 07:00 Intake Total 665.0 ml 470.0 ml Output Total 950 ml Balance 665.0 ml -480.0 ml Intake Oral 610 ml 360 ml IV Total 55.0 ml 110.0 ml Output Urine Total 950 ml # Voids 8 General Appearance: WD/WN, no acute distress HEENT: normocephalic, atraumatic, anicteric, mucous membranes moist, PERRL Respiratory/Chest: no respiratory distress, no accessory muscle use, decreased breath sounds Cardiovascular: normal peripheral pulses, normal rate, regular rhythm, no JVD Abdomen: normal bowel sounds, soft, non tender, non distended Genitourinary: normal external genitalia Extremities: no edema Neurologic/Psychiatric: no motor/sensory deficits, alert, oriented x 3, responsive Musculoskeletal: normal muscle bulk Laboratory Tests 08/20/16 05:50: White Blood Count 7.0, Red Blood Count 4.84, Hemoglobin 15.2, Hematocrit 45.4, Mean Corpuscular Volume 94, Mean Corpuscular Hemoglobin 31.4H, Mean Corpuscular Hemoglobin Concent 33.5, Red Cell Distribution Width 12.5, Platelet Count 259, Mean Platelet Volume 6.9, Neutrophils (%) (Auto) 64.6, Lymphocytes (%) (Auto) 23.6, Monocytes (%) (Auto) 8.8, Eosinophils (%) (Auto) 2.5, Basophils (%) (Auto ) 0.6, Sodium Level 145, Potassium Level 3.6, Chloride Level 102, Carbon Dioxide Level 31H, Anion Gap 12, Blood Urea Nitrogen 15, Creatinine 1.1, Estimat Glomerular Filtration Rate > 60, Glucose Level 142H, Hemoglobin A1c [ Pending], Calcium Level 8.7 Current Medications Medications (Trade) Dose Ordered Sig/Tom Route PRN Reason Start Time Stop Time Status Last Admin Dose Admin Albuterol/ Ipratropium (DuoNeb 0.5-3(2.5)mg/3ml) 3 ml Q4HRT HHN 08/17/16 11:00 08/22/16 10:59 08/19/16 19:20 Amantadine HCl (Symmetrel) 100 mg DAILY ORAL 08/14/16 09:00 09/13/16 08:59 08/19/16 08:50 Aspirin (Ecotrin) 81 mg DAILY ORAL 08/16/16 09:00 09/15/16 08:59 08/19/16 08:50 Atorvastatin Calcium (Lipitor) 40 mg BEDTIME ORAL 08/16/16 21:00 09/15/16 20:59 08/19/16 21:01 Dextrose (Dextrose 50%) STAT PRN IV Hypoglycemia 08/13/16 21:00 09/12/16 20:59 Escitalopram Oxalate (Lexapro) 10 mg DAILY ORAL 08/20/16 09:00 09/19/16 08:59 Heparin Sodium (Porcine) (Heparin 5000 units/ml) 5,000 units EVERY 12 HOURS SUBQ 08/13/16 22:00 09/12/16 21:59 08/19/16 21:07 Insulin Aspart (NovoLOG) BEFORE MEALS AND HS SUBQ 08/13/16 23:00 09/12/16 22:59 08/20/16 06:00 Lorazepam (Ativan 2mg/ml 1ml) 0.5 mg Q4H PRN IV For Anxiety 08/13/16 21:00 08/20/16 20:59 Methylprednisolone Sodium Succinate (Solu-MEDROL) 50 mg DAILY IV 08/20/16 09:00 09/19/16 08:59 Metoprolol Tartrate (Lopressor) 25 mg DAILY ORAL 08/14/16 09:00 09/13/16 08:59 08/18/16 08:46 Morphine Sulfate (Morphine Sulfate) 2 mg Q4H PRN IVP severe pain 7-10 08/13/16 21:00 08/20/16 20:59 08/17/16 15:50 Nitroglycerin (Ntg) 0.4 mg Q5M X 3 DOSES PRN SL Prn Chest Pain 08/13/16 21:00 09/12/16 20:59 Ondansetron HCl (Zofran) 4 mg Q6H PRN IVP Nausea & Vomiting 08/13/16 21:00 09/12/16 20:59 Piperacillin Sod/ Tazobactam Sod/ Dextrose (Zosyn/D5W) 110 ml @ 27.5 mls/hr EVERY 8 HOURS IVPB 08/13/16 23:00 08/20/16 22:59 08/20/16 05:54 Promethazine HCl/ Codeine (Phenergan with Codeine) 5 ml Q6H PRN ORAL cough 08/13/16 21:00 09/12/16 20:59 Tamsulosin HCl (Flomax) 0.8 mg BEDTIME ORAL 08/13/16 22:00 09/12/16 21:59 08/19/16 21:01 Temazepam 15 mg 15 mg HSPRN PRN ORAL Insomnia 08/13/16 21:00 08/20/16 20:59 08/19/16 21:05 Theophylline (Jerome-Dur) 200 mg Q12HR ORAL 08/16/16 21:00 09/15/16 20:59 08/19/16 21:01 Rick ([facility])Romy NP Aug 20, 2016 07:33
[2016-08-20] MEDS ORDERED: Morphine Sulfate 2mg/ml Inj IVP PRN (08:30)
[2016-08-20] MEDS ORDERED: LORazepam Inj 2mg/ml 1ml IV PRN (08:30)
[2016-08-20] MEDS: Metoprolol 25mg tab ORAL SCH (08:43)
[2016-08-20] MEDS: Aspirin EC 81mg tab ORAL SCH (08:43)
[2016-08-20] MEDS: Theophylline ER 100mg ORAL SCH (08:43)
[2016-08-20] MEDS: Amantadine 100mg cap ORAL SCH (08:43)
[2016-08-20] MEDS: Heparin 5000 units/ml inj SUBQ SCH (08:44)
[2016-08-20] MEDS ORDERED: Solu-MEDROL 125mg Inj IV SCH (09:00)
[2016-08-20] MEDS ORDERED: Solu-MEDROL 40mg Inj IVP SCH (09:00)
[2016-08-20] MEDS ORDERED: DuoNeb 0.5-3(2.5)mg/3ml neb HHN SCH (11:00)
[2016-08-20 11:45] VITALS: BP 118/76
[2016-08-20] MEDS ORDERED: SYMBICORT 1601 PUFFS INH (12:36)
[2016-08-20] MEDS ORDERED: SPIRIVA18 MCG INH (12:37)
[2016-08-20] MEDS ORDERED: THEOPHYLLI80 MG/151 PO ×2 (12:38→12:39)
[2016-08-20] MEDS ORDERED: PROAIR HFA8.5 GM INH (12:41)
--- NOTE | 2016-08-20 13:06 | General Progress Note ---
Progress Note Progress Note [id number] pt seen and examined full note dictated EUSEBIO HAYS Aug 20, 2016 13:06
[2016-08-20] MEDS ORDERED: MEDROL8 MG PO ×2 (13:19→13:20)
--- NOTE | 2016-08-21 01:48 | Discharge Summary ---
DATE OF ADMISSION: 08/13/2016 DATE OF DISCHARGE: 08/20/2016 ADMITTING DIAGNOSES: 1. Chronic obstructive pulmonary disease exacerbation. 2. Urinary tract infection. 3. Hypotension. 4. History of hypertension. 5. History of diabetes. 6. History of transient ischemic attack. 7. History of anxiety. 8. History of depression. COURSE OF HOSPITAL ADMISSION: The patient is a pleasant male with past medical history significant for above who came to the emergency room complaining of increasing shortness of breath, orthopnea, chest pain, and nonproductive cough. He was found to have COPD exacerbation. He was started on steroids. He was started on IV antibiotics. The patient was seen by Cardiology and Pulmonary consultation. The patient's condition and shortness of breath had improved. The patient will be discharged home. We will have a follow up with primary physician, Dr. Phill Andrea. CONDITION UPON DISCHARGE: Stable. PHYSICAL EXAMINATION: VITAL SIGNS: Upon discharge, the patient has temperature of 97 degrees, blood pressure 121/77, and pulse rate of 100. HEAD AND NECK: No JVP. No LAD. No thyromegaly. Extraocular movement intact. Pupils are reactive to light and accommodation. LUNGS: Clear to auscultation. CARDIAC: Regular rate and rhythm. S1-S2. No murmur. No rub. ABDOMEN: Soft, nontender, and nondistended. EXTREMITIES: No edema. No clubbing. No cyanosis. LABORATORY VALUES: The patient has WBC count of 7, hemoglobin 15, hematocrit 45, and platelet count of 259,000. Chemistry revealed sodium 145, potassium 3.6, 102 chloride, 15 bicarbonate, creatinine 1.1, and glucose of 142. A1c of 7.1. DISCHARGE DIAGNOSES: 1. Chronic obstructive pulmonary disease exacerbation. 2. Urinary tract infection. 3. Hypotension. 4. History of hypertension. 5. History of diabetes. 6. History of transient ischemic attack. 7. History of anxiety. 8. History of depression. PROGNOSIS: Poor. DIET: Going to be 2 g sodium, 1800 ADA diet. Fidelina Ayala M.D. DR: Kendall JOB#: [id number] CC:
== END 2016-08-20 13:40 | disposition home health service (06) | DRG 191 ==
LOC: EMR 11:41 → 4E 14:05 → EDBEDREQ 14:19
DX: J44.1 Chronic obstructive pulmonary disease with (acute) exacerbation (principal); N39.0 Urinary tract infection, site not specified; E11.51 Type 2 diabetes mellitus with diabetic peripheral angiopathy without gangrene; I95.2 Hypotension due to drugs; I10 Essential (primary) hypertension; M19.90 Unspecified osteoarthritis, unspecified site; E78.5 Hyperlipidemia, unspecified; F32.9 Major depressive disorder, single episode, unspecified; F41.9 Anxiety disorder, unspecified; Z87.891 Personal history of nicotine dependence; Z86.73 Personal history of transient ischemic attack (TIA), and cerebral infarction without residual deficits
CPT/HCPCS: 36415; 71010; 80048; 80053; 81003; 82550; 82962; 83036; 83605; 83735; 83880; 84100; 84484; 85007; 85025; 85610; 85730; 86710; 87070; 87086; 87181; 87205; 93005; 94640; 94664; J1815; J7620

== ENCOUNTER 2017-04-07 11:21 | Outpatient (CLI) | payer MEDICARE, MEDICAID ==
[~2017-04-07 11:21] MED LIST changes: +AMANTADINE100 MG ORAL; +AMRIX15 MG ORAL; +AVODART0.5 MG ORAL; +BELSOMRA20 MG PO; +BEVESPI AEROS10.7 GM IH; +EXCEDRIN EXTRA1 EAC1 PO; +FUROSEMIDE20 M1 ORAL; +GABAPENTIN600 MG ORAL; +LEXAPRO20 MG ORAL; +MEDROL8 MG PO; +METFORMIN HCL500 M4 ORAL; +METOPROLOL TART25 MG ORAL; +NASONEX17 GM NASAL; +NOVOLOG100 UNITS1 SQ; +OMEPRAZOLE20 M2 ORAL; +POTASSIUM CHLO10 MEQ ORAL; +PREDNISONE5 M3 PO; +PROAIR HFA8.5 GM INH; +ROXICODONE30 M1 ORAL; +SYMBICORT 1601 PUFFS INH; +TAMSULOSIN HCL0.4 MG ORAL; +THEOPHYLLI80 MG/151 PO; +THEOPHYLLINE A300 MG PO; +TRESIBA FL200 UNIT/1 SQ; +VENTOLIN HFA18 GM INH
--- NOTE | 2017-04-07 16:46 | Diagnostic Imaging Report ---
APPROVED REPORT CPT Code: 22058 Symptoms Comments: Right leg pain Risk Factors Diabetes RIGHT LEG: Common femoral artery waveform analysis is within normal limits at rest. Color flow duplex sonography reveals minimal calcification throughout the superficial femoral and popliteal arteries. There is no evidence of stenosis or occlusion within these segments. The tibioperoneal trunks were patent. The posterior tibial, anterior tibial and dorsalis pedis arteries are minimally calcified. Ankle-brachial indices and, Doppler tibial artery waveform analysis are within normal limits, at rest.
== END 2017-04-07 13:21 | disposition home or self-care (01) ==
LOC: RAD 11:21 → CAR 13:21
DX: M79.604 Pain in right leg (principal); E11.9 Type 2 diabetes mellitus without complications
CPT/HCPCS: 93922; 93926

== ENCOUNTER 2017-06-06 10:26 | Outpatient (CLI) | payer MEDICARE, MEDICAID ==
--- NOTE | 2017-06-06 22:45 | Diagnostic Imaging Report ---
Indication: Reason For Exam: BK PAIN Technique: MRI of the lumbar spine was obtained in a multiplanar multisequence acquisition. Lung sequences were obtained: 3 plane localizer, sagittal T1 FSE, T2 FRFSE, and STIR; axial T2 FRFSE, T1. Comparison: 05/09/2015 Findings: There are 5 lumbar-type nonrib-bearing vertebral bodies, assuming 12 paired ribs. There is no abnormal lumbar curvature. There is mild straightening of the lumbar lordosis. There are degenerative marrow signal changes within the endplates at L5-S1. Otherwise marrow signal is within normal limits. The tip of the conus is noted to terminate at the level of L1. Distal spinal cord demonstrates normal morphology and normal, homogeneous signal intensity. At T12-L1: No significant disc protrusion or extrusion.There is no evidence of significant central canal stenosis or foraminal narrowing. At the L1-L2: No significant disc protrusion or extrusion. There is mild hypertrophy of ligamentum flavum. There is no evidence of significant central canal stenosis or foraminal narrowing. At L2-L3: A tiny disc bulge minimally indents the thecal sac. There is mild hypertrophy of the ligamentum flavum at this level. There is no significant central canal stenosis or foraminal narrowing. At L3-L4: Hypertrophy of the ligamentum flavum and tiny circumferential bulge results in very mild central canal stenosis. No foraminal narrowing. At L4-L5: A broad-based disc bulge and hypertrophy of the ligamentum flavum result in moderate central canal stenosis. There is mild bilateral foraminal narrowing at this level, right greater than left. There is clumping of nerve roots and some facet hypertrophy. This is unchanged. At L5-S1: Hypertrophy of the ligamentum flavum and broad-based posterior disc bulge noted. Small focal foraminal protrusion of the disc on the left again noted. There is moderate to severe central canal stenosis at this level as well as severe bilateral foraminal narrowing. This is overall without change. The thoracic aorta is normal in caliber. There is a well-circumscribed 1.2 cm T2 hyperintense lesion in the left kidney compatible with a simple renal cyst. Impression: Degenerative change of the lumbar spine most pronounced at L4-L5 abd L5-S1 as detailed above. Findings are overall without significant interval change compared to the prior exam of 05/09/2015.
--- NOTE | 2017-06-07 10:09 | Diagnostic Imaging Report ---
Indication: Right hip pain Technique: Right hip imaging utilizing multiplanar T1 fast spin-echo, proton and T2 fast spin-echo with fat saturation, and STIR. Comparison: None Findings: There is diffuse generalized labral degeneration involving both hips. The normal configuration of the acetabular labrum is not demonstrated. Associated subchondral irregularity, moderate marginal osteophyte formation are noted in conjunction with this. Bone marrow signal is essentially normal. There is some retention of red marrow or other nonspecific areas of more cellular appearing marrow within portions of the femoral head and neck. This does not have the configuration of the acute injury or AVN. There is no joint effusion. Degenerative changes of both sacroiliac joints also demonstrated in a similar fashion. The visualized part of the lower lumbar spine shows moderate spondylosis with desiccation and narrowing of the intervertebral discs, hypertrophied endplates and facets. IMPRESSION: Moderate arthrosis involving both hips, sacroiliac joints and facets. Degenerative disc disease also demonstrated. No evidence of AVN, acute injury or other acute pathology.
== END 2017-06-06 12:26 | disposition home or self-care (01) ==
LOC: MRI 10:26
DX: M54.9 Dorsalgia, unspecified (principal); M16.0 Bilateral primary osteoarthritis of hip; M47.896 Other spondylosis, lumbar region
CPT/HCPCS: 72148

== ENCOUNTER 2017-07-22 14:37 | Outpatient (CLI) | payer MEDICARE, MEDICAID ==
--- NOTE | 2017-07-22 15:57 | Diagnostic Imaging Report ---
Indication: 61-year-old male right-sided leg weakness and dizziness Technique: The head was imaged in a 1.5 Adelia magnet. Sequences obtained include sagittal and axial T1 FLAIR, axial T2 fast spin echo with fat saturation, axial T2 FLAIR, diffusion and ADC map. Gadolinium-enhanced axial and coronal T1 FLAIR obtained also. Comparison: CT head 02/27/2015, MRI head 11/05/2011 Findings: There is mild prominence of the sulci, ventricles, and basal cisterns consistent with atrophy. Mild, nonspecific T2 hyperintensity noted within white matter. This may be due to chronic small vessel disease. No abnormal enhancement is identified. There is no restricted diffusion. Rod-white differentiation is normal. There is no mass effect, midline shift, edema, or hemorrhage. There are no abnormal extra-axial or intra-axial fluid collections. The corpus callosum and sella are unremarkable. The brainstem and cerebellum are unremarkable. Bone marrow signal within the visualized osseous structures appears age appropriate and unremarkable otherwise. Medial maxillectomies noted bilaterally. There is mucosal thickening within the visualized paranasal sinuses. Impression: No acute intracranial findings. Age-related findings including atrophy and evidence of chronic small vessel disease involving white matter tracts. Chronic sinusitis. Status post bilateral medial maxillectomies.
== END 2017-07-22 16:37 | disposition home or self-care (01) ==
LOC: MRI 14:37
DX: R42 Dizziness and giddiness (principal); R53.1 Weakness; I73.9 Peripheral vascular disease, unspecified
CPT/HCPCS: 70553; A9585

== ENCOUNTER 2017-07-30 16:51 | Inpatient (IN) | payer MEDICARE, MEDICAID ==
[~2017-07-30] VITALS: Ht 180.3 cm; Wt 80.7 kg
[2017-07-30 17:11] VITALS: BP 125/85
[2017-07-30] MEDS ORDERED: Albuterol/Ipratropium 3ml neb HHN ONE ×2 (18:00→19:15)
[2017-07-30] MEDS ORDERED: Solu-MEDROL 125mg Inj IVP ONE (18:00)
[2017-07-30 18:26] VITALS: BP 120/85
[2017-07-30 18:29] LABS: EOSINOPHILS % (AUTO) 1.9 % (0.0-3.0); HEMATOCRIT 53.4 % (42.0-52.0); HEMOGLOBIN 17.9 G/DL (14.2-18.0); MEAN CORPUSCULAR VOLUME 94 FL (80-99); MONOCYTES % (AUTO) 7.1 % (1.0-10.0); NEUTROPHILS % (AUTO) 62.1 % (45.0-75.0); PLATELET COUNT 288 K/UL (150-450); WHITE BLOOD COUNT 7.3 K/UL (4.8-10.8)
[2017-07-30 18:35] LABS: ANION GAP 10 mmol/L (5-15); BLOOD UREA NITROGEN 15 mg/dL (7-18); CARBON DIOXIDE 29 MMOL/L (21-32); CHLORIDE 98 MMOL/L (98-107); CREATININE 1.5 MG/DL (0.55-1.30); SODIUM 137 MMOL/L (136-145)
[2017-07-30 18:38] LABS: INR 0.9 (0.9-1.1)
[2017-07-30 18:49] LABS: ALANINE AMINOTRANSFERASE 107 U/L (12-78); ALBUMIN 3.3 G/DL (3.4-5.0); ALBUMIN/GLOBULIN RATIO 0.6 (1.0-2.7); ALKALINE PHOSPHATASE 85 U/L (46-116); ASPARTATE AMINO TRANSFERASE 71 U/L (15-37); BILIRUBIN,TOTAL 0.8 MG/DL (0.2-1.0); CKMB 13.3 NG/ML (0.0-3.6); CREATINE KINASE 320 U/L (26-308)
[2017-07-30 19:34] VITALS: BP 112/78
[2017-07-30] MEDS ORDERED: METFORMIN HCL500 M1 ORAL (19:39)
[2017-07-30] MEDS ORDERED: THEOPHYLLINE A300 MG PO (19:39)
[2017-07-30] MEDS ORDERED: PERFOROMIS20 MCG/2 M IH (19:42)
[2017-07-30] MEDS ORDERED: AMRIX15 MG ORAL (19:45)
[2017-07-30] MEDS ORDERED: VITAMIN D1000 UNI1 ORAL (19:46)
[2017-07-30] MEDS ORDERED: XULTOPHY 100 UNI3 ML SQ (19:50)
[2017-07-30] MEDS ORDERED: DALIRESP500 MCG PO (19:57)
[2017-07-30] MEDS ORDERED: PROVENTIL HFA6.7 G1 INH (19:59)
[2017-07-30] MEDS ORDERED: PREDNISONE2.5 MG ORAL (20:01)
[2017-07-30] MEDS ORDERED: MIRTAZAPINE30 MG ORAL (20:03)
[2017-07-30] MEDS ORDERED: Mylanta II UD 30ml ORAL PRN (20:15)
[2017-07-30] MEDS ORDERED: Miralax 17gm pkt ORAL PRN (20:15)
[2017-07-30] MEDS ORDERED: Albuterol/Ipratropium 3ml neb HHN PRN (20:15)
[2017-07-30 20:27] LABS: APPEARANCE,URINE CLEAR; BILIRUBIN, URINE 1+ (NEGATIVE); COLOR,URINE BROWN; GLUCOSE, URINE (UA) 4+ (NEGATIVE); KETONES,URINE 3+ (NEGATIVE); LEUKOCYTE ESTERASE ,URINE 1+ (NEGATIVE); NITRITE,URINE NEGATIVE (NEGATIVE); PH,URINE 5 (4.5-8.0); PROTEIN,URINE 2+ (NEGATIVE); UROBILINOGEN,URINE 8 MG/DL (0.0-1.0)
[2017-07-30 20:45] VITALS: BP 114/78
[2017-07-30 21:20] VITALS: BP 116/83
--- NOTE | 2017-07-30 21:29 | Emergency Room Report ---
History of Present Illness General Chief Complaint: Dyspnea/Respdistress Present Illness HPI Patient is a 61-year-old male who presented after increased difficulty breathing. Patient gradual onset of symptoms. He reported having active fever. He had prior history of COPD. Patient is a former smoker. He he denies any vomiting or diarrhea. Patient reported having some cough as well as chest pain. Allergies: Coded Allergies: SHARK LIVER OIL (Unverified Allergy, Unknown, 12/27/15) Uncoded Allergies: SHARK (Allergy, Mild, RASH, 09/01/15) Patient History Past Medical History: see triage record Reviewed Nursing Documentation: PMH: Agreed, PSxH: Agreed Nursing Documentation-PMH Hx Cardiac Problems: Yes Hx Asthma: Yes Hx COPD: Yes Hx Diabetes: Yes - 2/2 Steroids Hx Cancer: No Hx Gastrointestinal Problems: Yes - IBS Hx Neurological Problems: No Hx Cerebrovascular Accident: No Review of Systems All Other Systems: negative except mentioned in HPI Physical Exam Vital Signs Date Time Temp Pulse Resp B/P (MAP) Pulse Ox O2 Delivery O2 Flow Rate FiO2 07/30/17 16:58 97.1 69 26 125/85 96 Room Air 97.2 07/30/17 18:08 21 Sp02 EP Interpretation: reviewed, normal General Appearance: normal inspection, well appearing, no apparent distress, alert, GCS 15 Head: atraumatic ENT: normal ENT inspection, hearing grossly normal, normal voice Neck: normal inspection, full range of motion, supple, no bony tend Respiratory: no retraction, decreased breath sounds, wheezing Cardiovascular #1: regular rate, rhythm, no edema Gastrointestinal: normal inspection, normal bowel sounds, non tender, soft, no guarding, no hernia Genitourinary: no CVA tenderness Musculoskeletal: normal inspection, back normal, normal range of motion Neurologic: normal inspection, alert, responsive, speech normal Psychiatric: normal inspection, judgement/insight normal, mood/affect normal Skin: normal inspection, normal color, no rash Medical Decision Making Diagnostic Impression: Primary Impression: COPD exacerbation ER Course Patient presented for shortness of breath. Differential included but was not limited to anemia, pneumonia, pneumothorax, myocardial infarction, pericardial effusion, congestive heart failure, acidosis. Because of complexity of patient' s case laboratory testing and imaging studies were ordered. Laboratory studies were unremarkable. Troponin was noted to be negative. Patient given breathing treatments as well as Solu-Medrol with some improvement. EKG interpreted by me showed bifascicular block with a rate of [address] or T wave changes. Dr. Cason was contacted for for inpatient management. Labs Test 07/30/17 17:20 07/30/17 20:04 White Blood Count 7.3 K/UL (4.8-10.8) Red Blood Count 5.70 M/UL (4.70-6.10) Hemoglobin 17.9 G/DL (14.2-18.0) Hematocrit 53.4 % (42.0-52.0) Mean Corpuscular Volume 94 FL (80-99) Mean Corpuscular Hemoglobin 31.5 PG (27.0-31.0) Mean Corpuscular Hemoglobin Concent 33.6 G/DL (32.0-36.0) Red Cell Distribution Width 12.0 % (11.6-14.8) Platelet Count 288 K/UL (150-450) Mean Platelet Volume 6.9 FL (6.5-10.1) Neutrophils (%) (Auto) 62.1 % (45.0-75.0) Lymphocytes (%) (Auto) 28.0 % (20.0-45.0) Monocytes (%) (Auto) 7.1 % (1.0-10.0) Eosinophils (%) (Auto) 1.9 % (0.0-3.0) Basophils (%) (Auto) 1.0 % (0.0-2.0) Prothrombin Time 9.6 SEC (9.30-11.50) Prothromb Time International Ratio 0.9 (0.9-1.1) Activated Partial Thromboplast Time 29 SEC (23-33) Sodium Level 137 MMOL/L (136-145) Potassium Level 5.0 MMOL/L (3.5-5.1) Chloride Level 98 MMOL/L (98-107) Carbon Dioxide Level 29 MMOL/L (21-32) Anion Gap 10 mmol/L (5-15) Blood Urea Nitrogen 15 mg/dL (7-18) Creatinine 1.5 MG/DL (0.55-1.30) Estimat Glomerular Filtration Rate 57.3 mL/min (>60) Glucose Level 293 MG/DL (74-106) Calcium Level 10.0 MG/DL (8.5-10.1) Total Bilirubin 0.8 MG/DL (0.2-1.0) Aspartate Amino Transf (AST/SGOT) 71 U/L (15-37) Alanine Aminotransferase (ALT/SGPT) 107 U/L (12-78) Alkaline Phosphatase 85 U/L (46-116) Total Creatine Kinase 320 U/L (26-308) Creatine Kinase MB 13.3 NG/ML (0.0-3.6) Creatine Kinase MB Relative Index 4.1 Troponin I 0.000 ng/mL (0.000-0.056) Pro-B-Type Natriuretic Peptide 61 pg/mL (0-125) Total Protein 8.5 G/DL (6.4-8.2) Albumin 3.3 G/DL (3.4-5.0) Globulin 5.2 g/dL Albumin/Globulin Ratio 0.6 (1.0-2.7) Lipase 71 U/L (73-393) Urine Color Brown Urine Appearance Clear Urine pH 5 (4.5-8.0) Urine Specific [place] 1.025 (1.005-1.035) Urine Protein 2+ (NEGATIVE) Urine Glucose (UA) 4+ (NEGATIVE) Urine Ketones 3+ (NEGATIVE) Urine Occult Blood 4+ (NEGATIVE) Urine Nitrite Negative (NEGATIVE) Urine Bilirubin 1+ (NEGATIVE) Urine Ictotest Negative Urine Urobilinogen 8 MG/DL (0.0-1.0) Urine Leukocyte Esterase 1+ (NEGATIVE) Urine RBC 5-10 /HPF (0 - 0) Urine WBC 2-4 /HPF (0 - 0) Urine Squamous Epithelial Cells None /LPF (NONE/OCC) Urine Bacteria Few /HPF (NONE) Urine Fine Granular Casts 2-4 /LPF (NONE) Last Vital Signs Date Time Temp Pulse Resp B/P (MAP) Pulse Ox O2 Delivery O2 Flow Rate FiO2 07/30/17 20:45 99.8 83 22 114/78 96 Room Air 21 99.8 Status: unchanged Disposition: ADMITTED INPATIENT Condition: Serious Referrals: JUAQUIN CORREIA (PCP) Juliocesar Kumar Jul 30, 2017 21:29
[2017-07-30] MEDS: Tamsulosin 0.4mg cap ORAL SCH (22:40)
[2017-07-30] MEDS: Docusate 100mg cap ORAL SCH (22:40)
[2017-07-30] MEDS: Heparin 5000 units/ml inj SUBQ SCH (22:41)
[2017-07-30] MEDS: NovoLOG Insulin Flexpen SUBQ SCH (22:44)
[2017-07-31] VITALS: BP 115/85
[2017-07-31] MEDS: Albuterol/Ipratropium 3ml neb HHN SCH ×4 (01:07→19:03)
[2017-07-31 04:00] VITALS: BP 122/79
[2017-07-31] MEDS: NovoLOG Insulin Flexpen SUBQ SCH ×4 (06:21→21:29)
[2017-07-31 08:00] VITALS: BP 118/69
[2017-07-31] MEDS: Aspirin Baby 81mg ORAL SCH (08:26)
[2017-07-31] MEDS: Metoprolol 25mg tab ORAL SCH (08:27)
[2017-07-31] MEDS: Docusate 100mg cap ORAL SCH ×2 (08:27→21:16)
[2017-07-31] MEDS: Vitamin D 1000 IU Tab ORAL SCH (08:28)
[2017-07-31] MEDS: Heparin 5000 units/ml inj SUBQ SCH ×2 (08:30→21:20)
[2017-07-31 08:33] LABS: BASOPHILS % (AUTO) 0.4 % (0.0-2.0); HEMATOCRIT 44.4 % (42.0-52.0); HEMOGLOBIN 15.4 G/DL (14.2-18.0); LYMPHOCYTES % (AUTO) 15.2 % (20.0-45.0); MEAN CORPUSCULAR VOLUME 92 FL (80-99); MONOCYTES % (AUTO) 0.7 % (1.0-10.0); NEUTROPHILS % (AUTO) 83.7 % (45.0-75.0); PLATELET COUNT 294 K/UL (150-450); RED BLOOD COUNT 4.83 M/UL (4.70-6.10); RED CELL DISTRIBUTION WIDTH 11.9 % (11.6-14.8); WHITE BLOOD COUNT 5.8 K/UL (4.8-10.8)
[2017-07-31 09:04] LABS: ANION GAP 14 mmol/L (5-15); BLOOD UREA NITROGEN 16 mg/dL (7-18); CALCIUM 9.2 MG/DL (8.5-10.1); CARBON DIOXIDE 23 MMOL/L (21-32); CHLORIDE 98 MMOL/L (98-107); CREATININE 1.1 MG/DL (0.55-1.30); POTASSIUM 4.2 MMOL/L (3.5-5.1); SODIUM 135 MMOL/L (136-145)
--- NOTE | 2017-07-31 10:18 | Diagnostic Imaging Report ---
Indication: Shortness of breath Technique: XRAY Chest 1v Comparison: 08/13/2016 Findings: Cardiomediastinal silhouette is stable. Atherosclerotic changes are noted. There is no consolidation or pleural effusion. Cervical hardware is present. Degenerative changes of the spine are noted. Impression: No obvious acute cardiopulmonary disease.
[2017-07-31] MEDS: Amantadine 100mg cap ORAL SCH (10:35)
[2017-07-31 12:00] VITALS: BP 107/79
--- NOTE | 2017-07-31 12:38 | History and Physical ---
History of Present Illness General Date patient seen: Jul 31, 2017 Time patient seen: 09:00 Reason for Hospitalization: Dyspnea/Respdistress Present Illness HPI 61y/o male with pmh of HTN, COPD, DM2, depression who presents with SOB and cough. Pt states he has been having worsening symptoms of cough and SOB for the past few weeks. He c/o subjective fever/chills. States he was recently hospitalized at another hospital for similar symptoms. He has been taking prednisone 5mg daily. He reports increased sputum production. Denies hemoptysis , n/v, d/c, abd pain, chest pain. Notes increased SOB w/ activity/exertion. In ED, pt noted to be in some respiratory distress w/ wheezing. He was given solumedrol 125mg IV, duonebs w/ some improvement. Trop neg. EKG w/ no acute ST/ T changes. CXR showed no e/o infiltrate. Allergies: Coded Allergies: SHARK LIVER OIL (Unverified Allergy, Unknown, 12/27/15) Uncoded Allergies: SHARK (Allergy, Mild, RASH, 09/01/15) Medication History Scheduled Albuterol Sulfate (Proventil Hfa), 2 PUFFS INH BID, (Reported) Amantadine Hcl* (Symmetrel*), 100 MG ORAL DAILY, (Reported) Aspirin* (Aspirin*), 81 MG ORAL DAILY, (Reported) Cholecalciferol (Vitamin D3)* (Vitamin D*), 2,000 UNITS ORAL DAILY, (Reported) Cyclobenzaprine Hcl (Amrix), 15 MG ORAL DAILY, (Reported) Dutasteride (Avodart), 0.5 MG ORAL QHS, (Reported) Formoterol Fumarate (Perforomist), Unknown Dose IH BID, (Reported) Gabapentin* (Gabapentin*), 600 MG ORAL DAILY, (Reported) Glycopyrrolate/Formoterol Fum (Bevespi Aerosphere Inhaler), 2 PUFFS IH BID, ( Reported) Insulin Degludec/Liraglutide (Xultophy 100 Unit-3.6MG/Ml Pen), 40 UNITS SQ QHS, (Reported) Metformin Hcl* (Metformin Hcl*), 500 MG ORAL TWICE A DAY, (Reported) Metoprolol Tartrate* (Metoprolol Tartrate*), 25 MG ORAL DAILY, (Reported) Mirtazapine* (Remeron*), 30 MG ORAL BEDTIME, (Reported) Omeprazole (Omeprazole), 20 MG ORAL DAILY, (Reported) Prednisone* (Prednisone*), 5 MG ORAL DAILY, (Reported) Roflumilast (Daliresp), 500 MCG PO DAILY, (Reported) Tamsulosin Hcl (Tamsulosin Hcl*), 0.8 MG ORAL BEDTIME, (Reported) Theophylline Anhydrous (Theophylline Anhydrous), 300 MG PO Q12HR, (Reported) Scheduled PRN Insulin Aspart (Novolog Flexpen), SQ TID PRN for SLIDING SCALE, (Reported) Linaclotide (Linzess), 145 MCG PO DAILY PRN for Constipation, (Reported) Oxycodone Hcl* (Roxicodone*), 30 MG ORAL Q8HR PRN for FOR PAIN (SEE PT COMMENTS) , (Reported) Discontinued Medications Albuterol Sulfate (Ventolin Hfa), 2 PUFFS INH EVERY 6 HOURS PRN for Shortness of Breath, (Reported) Discontinued Reason: Therapy completed Albuterol Sulfate* (Proair Hfa*), 1 PUFF INH QID, (Reported) Discontinued Reason: Therapy completed Aspirin/Acetaminophen/Caffeine (Excedrin Extra Strength Caplet), 2 TAB PO DAILY PRN for For Pain, (Reported) Discontinued Reason: Pt stopped taking med Budesonide/Formoterol Fumarate (Symbicort 160-4.5 Mcg Inhaler), 1 PUFF INH TWICE A DAY, (Reported) Discontinued Reason: Therapy completed Clarithromycin (Clarithromycin), 500 MG ORAL TWICE A DAY, (Reported) Discontinued Reason: Therapy completed Escitalopram Oxalate* (Lexapro*), 20 MG ORAL DAILY, (Reported) Discontinued Reason: Therapy completed Furosemide* (Lasix*), 20 MG ORAL DAILY, (Reported) Discontinued Reason: Therapy completed Insulin Degludec (Tresiba Flextouch U-200), 30 UNIT SQ QHS, (Reported) Discontinued Reason: Therapy completed Methylprednisolone (Medrol), 8 MG PO, (Reported) Discontinued Reason: Therapy completed Mometasone Furoate (Nasonex), 2 SPRAYS NASAL DAILY PRN for ALLERGIES, (Reported) Discontinued Reason: Therapy completed Potassium Chloride* (K-Dur*), 10 MEQ ORAL DAILY, (Reported) Discontinued Reason: Therapy completed Suvorexant (Belsomra), 20 MG PO QHS, (Reported) Discontinued Reason: Pt stopped taking med Theophylline Anhydrous (Theophylline), 100 MG PO EVERY 12 HOURS, (Reported) Discontinued Reason: Prescription changed Tiotropium [place]* (Spiriva*), 1 PUFF INH DAILY, (Reported) Discontinued Reason: Therapy completed Patient History Healthcare decision maker N Resuscitation status Full Code Advanced Directive on File No Past Medical/Surgical History Past Medical/Surgical History: (1) Insulin dependent type 2 diabetes mellitus (2) HTN (hypertension) (3) Depression (4) COPD (chronic obstructive pulmonary disease) Family History Family History: Patient reports no known family medical history. Social History Social History: (1) Former tobacco use (2) Lives with roommates Review of Systems Constitutional: Reports: fever, weakness Eye: Reports: no symptoms ENT: Reports: no symptoms Respiratory: Reports: cough, shortness of breath, wheezing Cardiovascular: Reports: no symptoms Gastrointestinal: Reports: no symptoms Genitourinary: Reports: no symptoms Musculoskeletal: Reports: no symptoms Skin: Reports: no symptoms Psychiatric: Reports: no symptoms Neurological: Reports: no symptoms Endocrine: Reports: no symptoms Hematologic/Lymphatic: Reports: no symptoms Physical Exam Physical Exam Narrative General: alert, cooperative, no distress, appears stated age Head: normocephalic, without obvious abnormality, atraumatic Eyes: conjunctivae/corneas clear. PERRL, EOM's intact Throat: lips, mucosa, and tongue normal. MMM Neck: supple, symmetrical, trachea midline, and no JVD Lungs: +wheezing b/l Heart: regular rate and rhythm, S1, S2 normal, no murmur, click, rub or gallop Abdomen: soft, non-tender, non-distended, bowel sounds normal; no masses or organomegaly Extremities: extremities normal, atraumatic, no cyanosis or edema Pulses: 2+ and symmetric Skin: skin color, texture, turgor normal; no rashes or lesions Neurologic: grossly normal, no focal deficits Last 24 Hour Vital Signs Date Time Temp Pulse Resp B/P (MAP) Pulse Ox O2 Delivery O2 Flow Rate FiO2 07/31/17 08:27 92 118/69 07/31/17 08:03 75 20 98 Room Air 07/31/17 08:00 98.2 92 20 118/69 100 Room Air 21 98.2 07/31/17 07:54 21 07/31/17 07:53 86 18 97 Room Air 07/31/17 04:00 97.3 85 20 122/79 95 Room Air 21 97.3 07/31/17 04:00 85 07/31/17 01:25 89 20 96 Room Air 21 07/31/17 01:05 21 07/31/17 01:04 89 20 96 Room Air 21 07/31/17 00:00 97.0 85 20 115/85 96 Room Air 21 97.0 07/31/17 00:00 86 07/30/17 22:42 85 07/30/17 21:20 98.1 86 25 116/83 98 Room Air 21 98.1 07/30/17 21:15 99.8 83 22 114/78 96 Room Air 21 99.8 07/30/17 20:45 99.8 83 22 114/78 96 Room Air 21 99.8 07/30/17 19:40 92 22 100 Room Air 21 07/30/17 19:34 97.3 92 22 112/78 94 Room Air 21 97.3 07/30/17 19:29 91 22 95 Room Air 21 07/30/17 19:29 21 07/30/17 18:34 96 22 100 Room Air 21 07/30/17 18:26 97.1 94 22 120/85 98 Room Air 97.1 07/30/17 18:26 94 26 Room Air 21 07/30/17 18:08 21 07/30/17 18:08 94 26 98 Room Air 07/30/17 18:06 94 26 Room Air 07/30/17 17:11 97.1 69 26 125/85 98 Room Air 97.1 07/30/17 16:58 97.1 69 26 125/85 96 Room Air 97.2 Intake and Output 07/30/17 07/31/17 19:00 07:00 Intake Total 120 ml 300 ml Output Total 800 ml Balance 120 ml -500 ml Intake Oral 120 ml 300 ml Output Urine Total 800 ml Laboratory Tests Test 07/30/17 17:20 07/30/17 20:04 07/30/17 20:11 07/31/17 07:50 White Blood Count 7.3 K/UL (4.8-10.8) 5.8 K/UL (4.8-10.8) Red Blood Count 5.70 M/UL (4.70-6.10) 4.83 M/UL (4.70-6.10) Hemoglobin 17.9 G/DL (14.2-18.0) 15.4 G/DL (14.2-18.0) Hematocrit 53.4 % (42.0-52.0) H 44.4 % (42.0-52.0) Mean Corpuscular Volume 94 FL (80-99) 92 FL (80-99) Mean Corpuscular Hemoglobin 31.5 PG (27.0-31.0) H 31.8 PG (27.0-31.0) H Mean Corpuscular Hemoglobin Concent 33.6 G/DL (32.0-36.0) 34.5 G/DL (32.0-36.0) Red Cell Distribution Width 12.0 % (11.6-14.8) 11.9 % (11.6-14.8) Platelet Count 288 K/UL (150-450) 294 K/UL (150-450) Mean Platelet Volume 6.9 FL (6.5-10.1) 6.5 FL (6.5-10.1) Neutrophils (%) (Auto) 62.1 % (45.0-75.0) 83.7 % (45.0-75.0) H Lymphocytes (%) (Auto) 28.0 % (20.0-45.0) 15.2 % (20.0-45.0) L Monocytes (%) (Auto) 7.1 % (1.0-10.0) 0.7 % (1.0-10.0) L Eosinophils (%) (Auto) 1.9 % (0.0-3.0) 0.0 % (0.0-3.0) Basophils (%) (Auto) 1.0 % (0.0-2.0) 0.4 % (0.0-2.0) Prothrombin Time 9.6 SEC (9.30-11.50) Prothromb Time International Ratio 0.9 (0.9-1.1) Activated Partial Thromboplast Time 29 SEC (23-33) Sodium Level 137 MMOL/L (136-145) 135 MMOL/L (136-145) L Potassium Level 5.0 MMOL/L (3.5-5.1) 4.2 MMOL/L (3.5-5.1) Chloride Level 98 MMOL/L (98-107) 98 MMOL/L (98-107) Carbon Dioxide Level 29 MMOL/L (21-32) 23 MMOL/L (21-32) Anion Gap 10 mmol/L (5-15) 14 mmol/L (5-15) Blood Urea Nitrogen 15 mg/dL (7-18) 16 mg/dL (7-18) Creatinine 1.5 MG/DL (0.55-1.30) H 1.1 MG/DL (0.55-1.30) Estimat Glomerular Filtration Rate 57.3 mL/min (>60) > 60 mL/min (>60) Glucose Level 293 MG/DL (74-106) H 273 MG/DL (74-106) H Calcium Level 10.0 MG/DL (8.5-10.1) 9.2 MG/DL (8.5-10.1) Total Bilirubin 0.8 MG/DL (0.2-1.0) Aspartate Amino Transf (AST/SGOT) 71 U/L (15-37) H Alanine Aminotransferase (ALT/SGPT) 107 U/L (12-78) H Alkaline Phosphatase 85 U/L (46-116) Total Creatine Kinase 320 U/L (26-308) H Creatine Kinase MB 13.3 NG/ML (0.0-3.6) H Creatine Kinase MB Relative Index 4.1 Troponin I 0.000 ng/mL (0.000-0.056) Pro-B-Type Natriuretic Peptide 61 pg/mL (0-125) 37 pg/mL (0-125) Total Protein 8.5 G/DL (6.4-8.2) H Albumin 3.3 G/DL (3.4-5.0) L Globulin 5.2 g/dL Albumin/Globulin Ratio 0.6 (1.0-2.7) L Lipase 71 U/L (73-393) L Urine Color Brown Urine Appearance Clear Urine pH 5 (4.5-8.0) Urine Specific [place] 1.025 (1.005-1.035) Urine Protein 2+ (NEGATIVE) H Urine Glucose (UA) 4+ (NEGATIVE) H Urine Ketones 3+ (NEGATIVE) H Urine Occult Blood 4+ (NEGATIVE) H Urine Nitrite Negative (NEGATIVE) Urine Bilirubin 1+ (NEGATIVE) H Urine Ictotest Negative Urine Urobilinogen 8 MG/DL (0.0-1.0) H Urine Leukocyte Esterase 1+ (NEGATIVE) H Urine RBC 5-10 /HPF (0 - 0) H Urine WBC 2-4 /HPF (0 - 0) Urine Squamous Epithelial Cells None /LPF (NONE/OCC) Urine Bacteria Few /HPF (NONE) Urine Fine Granular Casts 2-4 /LPF (NONE) H Arterial Blood pH 7.410 (7.350-7.450) Arterial Blood Partial Pressure CO2 30.2 mmHg (35.0-45.0) L Arterial Blood Partial Pressure O2 79.7 mmHg (75.0-100.0) Arterial Blood HCO3 19.0 mmol/L (22.0-26.0) L Arterial Blood Oxygen Saturation 95.3 % (92.0-98.0) Arterial Blood Base Excess -4.1 Kd Test Positive Magnesium Level 2.1 MG/DL (1.8-2.4) Height (Feet): 5 Height (Inches): 11.00 Weight (Pounds): 178 Medications Current Medications Medications (Trade) Dose Ordered Sig/Tom Route PRN Reason Start Time Stop Time Status Last Admin Dose Admin Acetaminophen (Tylenol) 650 mg Q4H PRN ORAL Mild Pain (Pain Scale 1-3) 07/30/17 20:15 08/29/17 20:14 Acetaminophen (Tylenol) 650 mg Q4H PRN ORAL fever 07/30/17 20:15 08/29/17 20:14 Al Hydroxide/Mg Hydroxide (Mylanta II) 30 ml Q6H PRN ORAL dyspepsia 07/30/17 20:15 08/29/17 20:14 Albuterol/ Ipratropium (Albuterol/ Ipratropium) 3 ml Q4H PRN HHN Shortness of Breath 07/30/17 20:15 08/04/17 20:14 Albuterol/ Ipratropium (Albuterol/ Ipratropium) 3 ml Q6HRT HHN 07/31/17 01:00 08/05/17 00:59 07/31/17 07:53 Amantadine HCl (Symmetrel) 100 mg DAILY ORAL 07/31/17 09:00 08/30/17 08:59 07/31/17 10:35 Aspirin (ASA) 81 mg DAILY ORAL 07/31/17 09:00 08/30/17 08:59 07/31/17 08:26 Bisacodyl (Dulcolax) 10 mg DAILYPRN PRN RECTAL Constipation 07/30/17 20:15 08/29/17 20:14 Dextrose (Dextrose 50%) STAT PRN IV Hypoglycemia 07/30/17 20:15 08/29/17 20:14 Dextrose (Dextrose 50%) STAT PRN IV Hypoglycemia 07/30/17 20:45 08/29/17 20:44 Docusate Sodium (Colace) 100 mg EVERY 12 HOURS ORAL 07/30/17 21:00 08/29/17 20:59 07/31/17 08:27 Gabapentin (Neurontin) 600 mg DAILY ORAL 07/31/17 09:00 08/30/17 08:59 07/31/17 08:27 Heparin Sodium (Porcine) (Heparin 5000 units/ml) 5,000 units EVERY 12 HOURS SUBQ 07/30/17 21:00 08/29/17 20:59 07/31/17 08:30 Insulin Aspart (NovoLOG) BEFORE MEALS AND HS SUBQ 07/30/17 21:00 08/29/17 20:59 07/31/17 11:25 Metoprolol Tartrate (Lopressor) 25 mg DAILY ORAL 07/31/17 09:00 08/30/17 08:59 07/31/17 08:27 Mirtazapine (Remeron) 30 mg BEDTIME ORAL 07/30/17 21:00 08/29/17 20:59 07/30/17 22:40 Ondansetron HCl (Zofran) 4 mg Q6H PRN IVP Nausea & Vomiting 07/30/17 20:15 08/29/17 20:14 Pantoprazole (Protonix) 40 mg DAILY ORAL 07/31/17 09:00 08/30/17 08:59 07/31/17 08:28 Polyethylene Glycol (Miralax) 17 gm DAILYPRN PRN ORAL Constipation 07/30/17 20:15 08/29/17 20:14 Sodium Chloride 1,000 ml @ 75 mls/hr [id number] IV 07/30/17 20:15 08/29/17 20:14 07/31/17 09:56 Tamsulosin HCl (Flomax) 0.8 mg BEDTIME ORAL 07/30/17 21:00 08/29/17 20:59 07/30/17 22:40 Vitamin D (Vitamin D) 2,000 intlu DAILY ORAL 07/31/17 09:00 08/30/17 08:59 07/31/17 08:28 Assessment/Plan Problem List: (1) COPD exacerbation ICD Codes: J44.1 - Chronic obstructive pulmonary disease with (acute) exacerbation SNOMED: 510946299 (2) Purulent bronchitis ICD Codes: J41.1 - Mucopurulent chronic bronchitis SNOMED: 96345833 (3) HTN (hypertension) ICD Codes: I10 - Essential (primary) hypertension SNOMED: 97594740 (4) Insulin dependent type 2 diabetes mellitus ICD Codes: E11.9 - Type 2 diabetes mellitus without complications; 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 SNOMED: 619510813 (5) Depression ICD Codes: F32.9 - Major depressive disorder, single episode, unspecified SNOMED: 38543798 Status: stable Assessment/Plan Admit inpt Pulmonology consulted Check ABG s/p solumedrol 125mg IV in ED Cont steroids per pulm: solumedrol 60mg IV BID and taper as tolerated Cont duonebs ATC and PRN Will hold off on abx at this time as clinically pt has no evidence of infection Check TTE to ensure no cardiac etiology to SOB Cont home meds CYNDI Pain control, supportive care, bowel regimen DVT Prophylaxis: SCD, HSQ Code Status: Full Hospital Classification Declaration: Based on this initial evaluation, and depending on the patient's clinical course, I anticipate that this patient will require hospitalization for 2-3 days for COPD exacerbation and close respiratory /hemodynamic monitoring. Disposition: Once the patient is stable to leave the hospital, I anticipate the patient will likely be discharged to the following environment: home with HH vs SNF I spent 70 minutes on this patient's case, and >50% were dedicated to counseling and/or care coordination. Discussed with patient/family, nursing staff, SW/CM, pulmonology regarding clinical status, treatment course, and disposition planning. Time of note may not reflect time of encounter. Wayne Rodriguez M.D. Jul 31, 2017 12:38
[2017-07-31] MEDS: Solu-MEDROL 125mg Inj IVP SCH ×2 (12:56→21:16)
[2017-07-31 16:00] VITALS: BP 113/69
--- NOTE | 2017-07-31 16:09 | Cardiology Report ---
APPROVED REPORT EKG Measurement Heart [id number] [id number] Normal sinus rhythm Right bundle branch block Left anterior fascicular block Bifascicular block Left ventricular hypertrophy with repolarization abnormality Cannot rule out Septal infarct, age undetermined Abnormal ECG
[2017-07-31] MEDS ORDERED: Levemir Flexpen SUBQ SCH (18:00)
[2017-07-31] MEDS: metFORMIN 500mg tab ORAL SCH (18:17)
[2017-07-31 20:00] VITALS: BP 115/76
[2017-07-31] MEDS: Tamsulosin 0.4mg cap ORAL SCH (21:15)
[2017-08-01] VITALS (7 sets, daily range): BP systolic 112–126; BP diastolic 59–82
[2017-08-01] MEDS: Albuterol/Ipratropium 3ml neb HHN SCH ×5 (00:46→23:51)
[2017-08-01] MEDS: NovoLOG Insulin Flexpen SUBQ SCH ×5 (06:10→20:17)
[2017-08-01] MEDS: Docusate 100mg cap ORAL SCH ×2 (08:58→20:17)
[2017-08-01] MEDS: Vitamin D 1000 IU Tab ORAL SCH (08:59)
[2017-08-01] MEDS: Aspirin Baby 81mg ORAL SCH (08:59)
[2017-08-01] MEDS: Metoprolol 25mg tab ORAL SCH (08:59)
[2017-08-01] MEDS: Amantadine 100mg cap ORAL SCH (08:59)
[2017-08-01] MEDS: metFORMIN 500mg tab ORAL SCH ×2 (08:59→17:37)
[2017-08-01] MEDS: Solu-MEDROL 125mg Inj IVP SCH (09:00)
[2017-08-01] MEDS: Heparin 5000 units/ml inj SUBQ SCH ×2 (09:01→20:16)
[2017-08-01] MEDS ORDERED: Miralax 17gm pkt ORAL PRN (11:45)
[2017-08-01] MEDS ORDERED: Mylanta II UD 30ml ORAL PRN (11:45)
[2017-08-01] MEDS ORDERED: Albuterol/Ipratropium 3ml neb HHN PRN (11:45)
--- NOTE | 2017-08-01 15:38 | Consultation ---
History of Present Illness General Chief Complaint: Dyspnea/Respdistress Present Illness Allergies: Coded Allergies: SHARK LIVER OIL (Unverified Allergy, Unknown, 12/27/15) Uncoded Allergies: SHARK (Allergy, Mild, RASH, 09/01/15) Medication History Scheduled Albuterol Sulfate (Proventil Hfa), 2 PUFFS INH BID, (Reported) Amantadine Hcl* (Symmetrel*), 100 MG ORAL DAILY, (Reported) Aspirin* (Aspirin*), 81 MG ORAL DAILY, (Reported) Cholecalciferol (Vitamin D3)* (Vitamin D*), 2,000 UNITS ORAL DAILY, (Reported) Cyclobenzaprine Hcl (Amrix), 15 MG ORAL DAILY, (Reported) Dutasteride (Avodart), 0.5 MG ORAL QHS, (Reported) Formoterol Fumarate (Perforomist), Unknown Dose IH BID, (Reported) Gabapentin* (Gabapentin*), 600 MG ORAL DAILY, (Reported) Glycopyrrolate/Formoterol Fum (Bevespi Aerosphere Inhaler), 2 PUFFS IH BID, ( Reported) Insulin Degludec/Liraglutide (Xultophy 100 Unit-3.6MG/Ml Pen), 40 UNITS SQ QHS, (Reported) Metformin Hcl* (Metformin Hcl*), 500 MG ORAL TWICE A DAY, (Reported) Metoprolol Tartrate* (Metoprolol Tartrate*), 25 MG ORAL DAILY, (Reported) Mirtazapine* (Remeron*), 30 MG ORAL BEDTIME, (Reported) Omeprazole (Omeprazole), 20 MG ORAL DAILY, (Reported) Prednisone* (Prednisone*), 5 MG ORAL DAILY, (Reported) Roflumilast (Daliresp), 500 MCG PO DAILY, (Reported) Tamsulosin Hcl (Tamsulosin Hcl*), 0.8 MG ORAL BEDTIME, (Reported) Theophylline Anhydrous (Theophylline Anhydrous), 300 MG PO Q12HR, (Reported) Scheduled PRN Insulin Aspart (Novolog Flexpen), SQ TID PRN for SLIDING SCALE, (Reported) Linaclotide (Linzess), 145 MCG PO DAILY PRN for Constipation, (Reported) Oxycodone Hcl* (Roxicodone*), 30 MG ORAL Q8HR PRN for FOR PAIN (SEE PT COMMENTS) , (Reported) Discontinued Medications Albuterol Sulfate (Ventolin Hfa), 2 PUFFS INH EVERY 6 HOURS PRN for Shortness of Breath, (Reported) Discontinued Reason: Therapy completed Albuterol Sulfate* (Proair Hfa*), 1 PUFF INH QID, (Reported) Discontinued Reason: Therapy completed Aspirin/Acetaminophen/Caffeine (Excedrin Extra Strength Caplet), 2 TAB PO DAILY PRN for For Pain, (Reported) Discontinued Reason: Pt stopped taking med Budesonide/Formoterol Fumarate (Symbicort 160-4.5 Mcg Inhaler), 1 PUFF INH TWICE A DAY, (Reported) Discontinued Reason: Therapy completed Clarithromycin (Clarithromycin), 500 MG ORAL TWICE A DAY, (Reported) Discontinued Reason: Therapy completed Escitalopram Oxalate* (Lexapro*), 20 MG ORAL DAILY, (Reported) Discontinued Reason: Therapy completed Furosemide* (Lasix*), 20 MG ORAL DAILY, (Reported) Discontinued Reason: Therapy completed Insulin Degludec (Tresiba Flextouch U-200), 30 UNIT SQ QHS, (Reported) Discontinued Reason: Therapy completed Methylprednisolone (Medrol), 8 MG PO, (Reported) Discontinued Reason: Therapy completed Mometasone Furoate (Nasonex), 2 SPRAYS NASAL DAILY PRN for ALLERGIES, (Reported) Discontinued Reason: Therapy completed Potassium Chloride* (K-Dur*), 10 MEQ ORAL DAILY, (Reported) Discontinued Reason: Therapy completed Suvorexant (Belsomra), 20 MG PO QHS, (Reported) Discontinued Reason: Pt stopped taking med Theophylline Anhydrous (Theophylline), 100 MG PO EVERY 12 HOURS, (Reported) Discontinued Reason: Prescription changed Tiotropium [place]* (Spiriva*), 1 PUFF INH DAILY, (Reported) Discontinued Reason: Therapy completed Patient History Healthcare decision maker N Resuscitation status Full Code Advanced Directive on File No Physical Exam Last 24 Hour Vital Signs Date Time Temp Pulse Resp B/P (MAP) Pulse Ox O2 Delivery O2 Flow Rate FiO2 08/01/17 13:07 21 08/01/17 13:07 83 18 98 Room Air 21 08/01/17 12:54 80 20 96 Room Air 21 08/01/17 12:00 97.1 83 20 118/77 95 Room Air 97.1 08/01/17 08:59 91 118/68 08/01/17 08:00 97.3 91 20 118/68 94 Room Air 21 97.3 08/01/17 08:00 92 08/01/17 07:02 21 08/01/17 07:02 80 20 98 Room Air 21 08/01/17 06:52 77 20 97 Room Air 21 08/01/17 04:00 97.3 81 21 124/80 95 Room Air 21 97.3 08/01/17 04:00 78 08/01/17 00:57 82 20 95 Room Air 21 08/01/17 00:46 21 08/01/17 00:45 82 20 95 Room Air 21 08/01/17 00:00 97.1 77 20 118/81 95 Room Air 21 97.1 08/01/17 00:00 81 07/31/17 20:00 97.7 83 20 115/76 95 Room Air 21 97.7 07/31/17 20:00 84 07/31/17 19:19 80 20 98 Room Air 21 07/31/17 19:02 21 07/31/17 19:01 80 20 98 Room Air 21 07/31/17 16:00 97.7 81 20 113/69 97 Room Air 21 97.7 07/31/17 16:00 79 Intake and Output 07/31/17 08/01/17 19:00 07:00 Intake Total 1737 ml Output Total 1000 ml 1500 ml Balance 737 ml -1500 ml Intake Oral 840 ml IV Total 897 ml Output Urine Total 1000 ml 1500 ml Height (Feet): 5 Height (Inches): 11.00 Weight (Pounds): 178 Medications Current Medications Medications (Trade) Dose Ordered Sig/Tom Route PRN Reason Start Time Stop Time Status Last Admin Dose Admin Acetaminophen (Tylenol) 650 mg Q4H PRN ORAL Mild Pain (Pain Scale 1-3) 08/01/17 11:45 08/29/17 11:44 Acetaminophen (Tylenol) 650 mg Q4H PRN ORAL fever (temp>100.5F) 08/01/17 11:45 08/29/17 11:44 Al Hydroxide/Mg Hydroxide (Mylanta II) 30 ml Q6H PRN ORAL dyspepsia 08/01/17 11:45 08/29/17 11:44 Albuterol/ Ipratropium (Albuterol/ Ipratropium) 3 ml Q4H PRN HHN Shortness of Breath 08/01/17 11:45 08/04/17 11:44 Albuterol/ Ipratropium (Albuterol/ Ipratropium) 3 ml Q6HRT HHN 08/01/17 13:00 08/05/17 00:59 08/01/17 12:54 Amantadine HCl (Symmetrel) 100 mg DAILY ORAL 08/02/17 09:00 08/30/17 08:59 Aspirin (ASA) 81 mg DAILY ORAL 08/02/17 09:00 08/30/17 08:59 Bisacodyl (Dulcolax) 10 mg DAILYPRN PRN RECTAL Constipation 08/01/17 11:45 08/29/17 11:44 Dextrose (Dextrose 50%) STAT PRN IV Hypoglycemia 08/01/17 11:45 08/29/17 11:44 Docusate Sodium (Colace) 100 mg EVERY 12 HOURS ORAL 08/01/17 21:00 08/29/17 20:59 Gabapentin (Neurontin) 600 mg DAILY ORAL 08/02/17 09:00 08/30/17 08:59 Heparin Sodium (Porcine) (Heparin 5000 units/ml) 5,000 units EVERY 12 HOURS SUBQ 08/01/17 21:00 08/29/17 20:59 Insulin Aspart (NovoLOG) BEFORE MEALS AND HS SUBQ 08/01/17 12:00 08/29/17 11:59 08/01/17 13:23 Insulin Detemir (Levemir) 24 units Q24H SUBQ 08/01/17 18:00 08/30/17 17:59 Metformin HCl (Glucophage) 500 mg TWICE A DAY ORAL 08/01/17 18:00 08/30/17 17:59 Methylprednisolone Sodium Succinate (Solu-MEDROL) 60 mg EVERY 12 HOURS IVP 08/01/17 21:00 08/30/17 12:59 Metoprolol Tartrate (Lopressor) 25 mg DAILY ORAL 08/02/17 09:00 08/30/17 08:59 Mirtazapine (Remeron) 30 mg BEDTIME ORAL 08/01/17 21:00 08/29/17 20:59 Ondansetron HCl (Zofran) 4 mg Q6H PRN IVP Nausea & Vomiting 08/01/17 11:45 08/29/17 11:44 Pantoprazole (Protonix) 40 mg DAILY ORAL 08/02/17 09:00 08/30/17 08:59 Polyethylene Glycol (Miralax) 17 gm DAILYPRN PRN ORAL Constipation 08/01/17 11:45 08/29/17 11:44 Sodium Chloride 1,000 ml @ 75 mls/hr [id number] IV 08/01/17 12:00 08/29/17 11:59 08/01/17 13:24 Tamsulosin HCl (Flomax) 0.8 mg BEDTIME ORAL 08/01/17 21:00 08/29/17 20:59 Vitamin D (Vitamin D) 2,000 intlu DAILY ORAL 08/02/17 09:00 08/30/17 08:59 MERCED GRIFFITH Aug 01, 2017 15:38
[2017-08-01] MEDS ORDERED: Levemir Flexpen SUBQ SCH (18:00)
[2017-08-01] MEDS: Tamsulosin 0.4mg cap ORAL SCH (20:18)
--- NOTE | 2017-08-01 20:40 | General Progress Note ---
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 SNOMED: 540133719 (5) Depression ICD Codes: F32.9 - Major depressive disorder, single episode, unspecified SNOMED: 68278886 Status: stable Assessment/Plan Pulmonology consulted s/p solumedrol 125mg IV in ED Cont steroids per pulm: decr to solumedrol 60mg IV daily and taper as tolerated Cont duonebs ATC and PRN Azithro 500mg daily Check TTE to ensure no cardiac etiology to SOB Cont home meds CYNDI Incr Levemir to 35U daily Pain control, supportive care, bowel regimen DVT Prophylaxis: SCD, HSQ Code Status: Full Hospital Classification Declaration: Based on this initial evaluation, and depending on the patient's clinical course, I anticipate that this patient will require hospitalization for 1-2 days for COPD exacerbation and close respiratory /hemodynamic monitoring. Disposition: Once the patient is stable to leave the hospital, I anticipate the patient will likely be discharged to the following environment: home with HH vs SNF Discussed with patient/family, nursing staff, SW/CM, pulmonology regarding clinical status, treatment course, and disposition planning. D/w pulm re tapering steroids Time of note may not reflect time of encounter. Subjective Date patient seen: Aug 01, 2017 Time patient seen: 11:20 ROS Limited/Unobtainable: No Constitutional: Reports: weakness HEENT: Reports: no symptoms Cardiovascular: Reports: no symptoms Respiratory: Reports: cough, shortness of breath Gastrointestinal/Abdominal: Reports: no symptoms Genitourinary: Reports: no symptoms Neurologic/Psychiatric: Reports: no symptoms Endocrine: Reports: no symptoms Hematologic/Lymphatic: Reports: no symptoms Allergies: Coded Allergies: SHARK LIVER OIL (Unverified Allergy, Unknown, 12/27/15) Uncoded Allergies: SHARK (Allergy, Mild, RASH, 09/01/15) All Systems: reviewed and negative except above Subjective No acute o/n events Cont to have cough, SOB and wheezing but feeling slightly better today. Ambulated and felt more SOB. Denies f/c, n/v, d/c, chest pain, abd pain Objective Last 24 Hour Vital Signs Date Time Temp Pulse Resp B/P (MAP) Pulse Ox O2 Delivery O2 Flow Rate FiO2 08/01/17 19:32 86 18 99 Room Air 21 08/01/17 19:29 97.5 76 20 112/74 98 Simple Mask 97.5 08/01/17 19:24 21 08/01/17 19:24 83 20 96 Room Air 21 08/01/17 16:00 98.2 86 19 116/59 93 98.2 08/01/17 13:07 21 08/01/17 13:07 83 18 98 Room Air 21 08/01/17 12:54 80 20 96 Room Air 21 08/01/17 12:00 97.1 83 20 118/77 95 Room Air 97.1 08/01/17 08:59 91 118/68 08/01/17 08:00 97.3 91 20 118/68 94 Room Air 21 97.3 08/01/17 08:00 92 08/01/17 07:02 21 08/01/17 07:02 80 20 98 Room Air 21 08/01/17 06:52 77 20 97 Room Air 21 08/01/17 04:00 97.3 81 21 124/80 95 Room Air 21 97.3 08/01/17 04:00 78 08/01/17 00:57 82 20 95 Room Air 21 08/01/17 00:46 21 08/01/17 00:45 82 20 95 Room Air 21 08/01/17 00:00 97.1 77 20 118/81 95 Room Air 21 97.1 08/01/17 00:00 81 Intake and Output 07/31/17 08/01/17 19:00 07:00 Intake Total 1737 ml Output Total 1000 ml 1500 ml Balance 737 ml -1500 ml Intake Oral 840 ml IV Total 897 ml Output Urine Total 1000 ml 1500 ml Height (Feet): 5 Height (Inches): 11.00 Weight (Pounds): 178 Objective General: alert, cooperative, no distress, appears stated age Head: normocephalic, without obvious abnormality, atraumatic Eyes: conjunctivae/corneas clear. PERRL, EOM's intact Throat: lips, mucosa, and tongue normal. MMM Neck: supple, symmetrical, trachea midline, and no JVD Lungs: +wheezing b/l Heart: regular rate and rhythm, S1, S2 normal, no murmur, click, rub or gallop Abdomen: soft, non-tender, non-distended, bowel sounds normal; no masses or organomegaly Extremities: extremities normal, atraumatic, no cyanosis or edema Pulses: 2+ and symmetric Skin: skin color, texture, turgor normal; no rashes or lesions Neurologic: grossly normal, no focal deficits Wayne Rodriguez M.D. Aug 01, 2017 20:40
[2017-08-01] MEDS ORDERED: Solu-MEDROL 125mg Inj IVP SCH (21:00)
[2017-08-01] MEDS ORDERED: Levemir Flexpen SUBQ ONE (21:30)
[2017-08-02] MEDS: Azithromycin 250mg tab ORAL SCH ×2 (02:35→20:46)
[2017-08-02 03:49] VITALS: BP 133/95
[2017-08-02] MEDS: NovoLOG Insulin Flexpen SUBQ SCH ×4 (05:40→20:48)
[2017-08-02 06:59] LABS: BASOPHILS % (AUTO) 1.6 % (0.0-2.0); EOSINOPHILS % (AUTO) 0.1 % (0.0-3.0); HEMATOCRIT 39.7 % (42.0-52.0); HEMOGLOBIN 13.5 G/DL (14.2-18.0); LYMPHOCYTES % (AUTO) 15.9 % (20.0-45.0); MEAN CORPUSCULAR VOLUME 94 FL (80-99); MONOCYTES % (AUTO) 6.3 % (1.0-10.0); NEUTROPHILS % (AUTO) 76.1 % (45.0-75.0); PLATELET COUNT 276 K/UL (150-450); RED BLOOD COUNT 4.21 M/UL (4.70-6.10); RED CELL DISTRIBUTION WIDTH 12.1 % (11.6-14.8); WHITE BLOOD COUNT 7.8 K/UL (4.8-10.8)
[2017-08-02 07:30] LABS: ALANINE AMINOTRANSFERASE 58 U/L (12-78); ALBUMIN 2.3 G/DL (3.4-5.0); ALBUMIN/GLOBULIN RATIO 0.6 (1.0-2.7); ALKALINE PHOSPHATASE 60 U/L (46-116); ANION GAP 9 mmol/L (5-15); ASPARTATE AMINO TRANSFERASE 37 U/L (15-37); BILIRUBIN,TOTAL 0.3 MG/DL (0.2-1.0); BLOOD UREA NITROGEN 14 mg/dL (7-18); CALCIUM 8.6 MG/DL (8.5-10.1); CARBON DIOXIDE 27 MMOL/L (21-32); CHLORIDE 104 MMOL/L (98-107); CREATININE 1.1 MG/DL (0.55-1.30); PHOSPHORUS 2.5 MG/DL (2.5-4.9); POTASSIUM 3.9 MMOL/L (3.5-5.1); SODIUM 139 MMOL/L (136-145)
[2017-08-02] MEDS: Albuterol/Ipratropium 3ml neb HHN SCH ×3 (07:32→19:41)
[2017-08-02 08:00] VITALS: BP 117/76
[2017-08-02] MEDS: Aspirin Baby 81mg ORAL SCH (08:46)
[2017-08-02] MEDS: Docusate 100mg cap ORAL SCH ×2 (08:46→20:49)
[2017-08-02] MEDS: metFORMIN 500mg tab ORAL SCH ×2 (08:46→18:01)
[2017-08-02] MEDS: Metoprolol 25mg tab ORAL SCH (08:46)
[2017-08-02] MEDS: Amantadine 100mg cap ORAL SCH (08:46)
[2017-08-02] MEDS: Heparin 5000 units/ml inj SUBQ SCH ×2 (08:47→20:47)
[2017-08-02] MEDS: Vitamin D 1000 IU Tab ORAL SCH (08:48)
[2017-08-02] MEDS ORDERED: Solu-MEDROL 125mg Inj IVP SCH (09:00)
[2017-08-02 12:00] VITALS: BP 121/79
[2017-08-02 16:00] VITALS: BP 128/73
--- NOTE | 2017-08-02 17:18 | Cardiology Report ---
APPROVED REPORT EXAM: Two-dimensional and M-mode echocardiogram with Doppler and color Doppler. INDICATION SOB M-Mode DIMENSIONS IVSd0.6 (0.7-1.1cm)Left Atrium (MM)3.1 (1.6-4.0cm) LVDd6.9 (3.5-5.6cm)Aortic Root3.3 (2.0-3.7cm) PWd1.3 (0.7-1.1cm)Aortic Cusp Exc.2.0 (1.5-2.0cm) LVDs4.6 (2.5-4.0cm) PWs1.4 cm Mild left ventricular enlargement,Normal systolic function and wall motion. Left ventricular ejection fraction estimated to be 55-60%. No evidence of left ventricular hypertrophy. No evidence of pericardial or pleural effusion. Mild left atrial enlargement by 2D. Moderate right atrial enlargement by 2D. Focal aortic valve sclerosis with adequate cusp excursion. Thickened mitral valve leaflets with normal excursion. Mild mitral annulus and aortic root calcification. Pulmonic valve not well visualized. Normal tricuspid valve structure. IVC is normal in size and collapsible with respiration. A color flow and spectral Doppler study was performed and revealed: Trace aortic regurgitation. Mild mitral regurgitation. Mitral inflow velocities indicates normla left ventricular diastolic function. Trace tricuspid regurgitation. Tricuspid systolic velocities suggests peak right ventricular systolic pressure of 24 mmHg Pulmonic regurgitation present.
[2017-08-02] MEDS ORDERED: Levemir Flexpen SUBQ SCH (18:00)
[2017-08-02 20:16] VITALS: BP 138/93
[2017-08-02] MEDS: Tamsulosin 0.4mg cap ORAL SCH (20:46)
--- NOTE | 2017-08-02 21:20 | Pulmonology Progress Note ---
Assessment/Plan Problems: (1) COPD exacerbation (2) Diabetes (3) Dyspnea (4) Purulent bronchitis Assessment/Plan taper steroids check sputum chest pt respiratory treatment dvt prophylaxis pt wants to go to a [place] [facility] care facility Subjective ROS Limited/Unobtainable: No Constitutional: Reports: no symptoms HEENT: Repors: no symptoms Allergies: Coded Allergies: SHARK LIVER OIL (Unverified Allergy, Unknown, 12/27/15) Uncoded Allergies: SHARK (Allergy, Mild, RASH, 09/01/15) Objective Last 24 Hour Vital Signs Date Time Temp Pulse Resp B/P (MAP) Pulse Ox O2 Delivery O2 Flow Rate FiO2 08/02/17 20:16 97.9 83 19 138/93 96 97.9 08/02/17 19:55 74 18 97 Room Air 21 08/02/17 19:55 21 08/02/17 19:41 76 20 96 Room Air 21 08/02/17 16:00 97.7 87 24 128/73 97 97.7 08/02/17 13:29 21 08/02/17 13:29 81 18 99 Room Air 21 08/02/17 13:29 80 20 95 Room Air 21 08/02/17 12:00 97.9 67 26 121/79 92 97.9 08/02/17 10:16 84 18 98 Room Air 21 08/02/17 10:16 21 08/02/17 10:15 82 20 94 Room Air 08/02/17 08:46 77 117/76 08/02/17 08:00 97.5 77 29 117/76 100 97.5 08/02/17 07:29 21 08/02/17 07:29 80 20 92 Room Air 21 08/02/17 07:29 81 18 98 Room Air 21 08/02/17 03:49 98.2 77 20 133/95 98 Room Air 98.2 08/01/17 23:58 82 18 98 Room Air 21 08/01/17 23:51 79 20 97 Room Air 21 08/01/17 23:51 21 08/01/17 23:40 97.5 79 20 126/82 97 Room Air 97.5 Intake and Output 08/01/17 08/02/17 19:00 07:00 Intake Total 776 ml Output Total 300 ml 500 ml Balance 476 ml -500 ml Intake Oral 476 ml IV Total 300 ml Output Urine Total 300 ml 500 ml # Voids 2 3 Objective General Appearance: cachectic HEENT: normocephalic, atraumatic, anicteric Respiratory/Chest: chest wall non-tender, rhonchi L>R Breasts: no masses Cardiovascular: normal peripheral pulses Abdomen: normal bowel sounds Genitourinary: normal external genitalia Laboratory Tests 08/02/17 04:45: White Blood Count 7.8, Red Blood Count 4.21L, Hemoglobin 13.5L, Hematocrit 39.7L , Mean Corpuscular Volume 94, Mean Corpuscular Hemoglobin 32.1H, Mean Corpuscular Hemoglobin Concent 34.1, Red Cell Distribution Width 12.1, Platelet Count 276, Mean Platelet Volume 6.1L, Neutrophils (%) (Auto) 76.1H, Lymphocytes (%) (Auto) 15.9L, Monocytes (%) (Auto) 6.3, Eosinophils (%) (Auto) 0.1, Basophils (%) (Auto) 1.6, Sodium Level 139, Potassium Level 3.9, Chloride Level 104, Carbon Dioxide Level 27, Anion Gap 9, Blood Urea Nitrogen 14, Creatinine 1.1, Estimat Glomerular Filtration Rate > 60, Glucose Level 186H, Calcium Level 8.6, Phosphorus Level 2.5, Magnesium Level 1.7L, Total Bilirubin 0.3, Aspartate Amino Transf (AST/SGOT) 37, Alanine Aminotransferase (ALT/SGPT) 58, Alkaline Phosphatase 60, Total Protein 6.4, Albumin 2.3L, Globulin 4.1, Albumin/Globulin Ratio 0.6L Current Medications Medications (Trade) Dose Ordered Sig/Tom Route PRN Reason Start Time Stop Time Status Last Admin Dose Admin Acetaminophen (Tylenol) 650 mg Q4H PRN ORAL Mild Pain (Pain Scale 1-3) 08/01/17 11:45 08/29/17 11:44 Acetaminophen (Tylenol) 650 mg Q4H PRN ORAL fever (temp>100.5F) 08/01/17 11:45 08/29/17 11:44 Al Hydroxide/Mg Hydroxide (Mylanta II) 30 ml Q6H PRN ORAL dyspepsia 08/01/17 11:45 08/29/17 11:44 Albuterol/ Ipratropium (Albuterol/ Ipratropium) 3 ml Q4H PRN HHN Shortness of Breath 08/01/17 11:45 08/04/17 11:44 08/02/17 10:15 Albuterol/ Ipratropium (Albuterol/ Ipratropium) 3 ml Q6HRT HHN 08/01/17 13:00 08/05/17 00:59 08/02/17 19:41 Amantadine HCl (Symmetrel) 100 mg DAILY ORAL 08/02/17 09:00 08/30/17 08:59 08/02/17 08:46 Aspirin (ASA) 81 mg DAILY ORAL 08/02/17 09:00 08/30/17 08:59 08/02/17 08:46 Azithromycin (Zithromax) 500 mg Q24H ORAL 08/01/17 21:00 08/08/17 20:59 08/02/17 20:46 Bisacodyl (Dulcolax) 10 mg DAILYPRN PRN RECTAL Constipation 08/01/17 11:45 08/29/17 11:44 Dextrose (Dextrose 50%) STAT PRN IV Hypoglycemia 08/01/17 11:45 08/29/17 11:44 Docusate Sodium (Colace) 100 mg EVERY 12 HOURS ORAL 08/01/17 21:00 08/29/17 20:59 08/02/17 08:46 Gabapentin (Neurontin) 600 mg DAILY ORAL 08/02/17 09:00 08/30/17 08:59 08/02/17 08:45 Heparin Sodium (Porcine) (Heparin 5000 units/ml) 5,000 units EVERY 12 HOURS SUBQ 08/01/17 21:00 08/29/17 20:59 08/02/17 20:47 Insulin Aspart (NovoLOG) BEFORE MEALS AND HS SUBQ 08/01/17 12:00 08/29/17 11:59 08/02/17 20:48 Insulin Detemir (Levemir) 35 units Q24H SUBQ 08/02/17 18:00 09/01/17 17:59 08/02/17 18:03 Metformin HCl (Glucophage) 500 mg TWICE A DAY ORAL 08/01/17 18:00 08/30/17 17:59 08/02/17 18:01 Methylprednisolone Sodium Succinate (Solu-MEDROL) 60 mg DAILY IVP 3/13/18 09:00 08/30/17 12:59 08/02/17 08:47 Metoprolol Tartrate (Lopressor) 25 mg DAILY ORAL 08/02/17 09:00 08/30/17 08:59 08/02/17 08:46 Mirtazapine (Remeron) 30 mg BEDTIME ORAL 08/01/17 21:00 08/29/17 20:59 08/02/17 20:46 Ondansetron HCl (Zofran) 4 mg Q6H PRN IVP Nausea & Vomiting 08/01/17 11:45 08/29/17 11:44 Pantoprazole (Protonix) 40 mg DAILY ORAL 08/02/17 09:00 08/30/17 08:59 08/02/17 08:46 Polyethylene Glycol (Miralax) 17 gm DAILYPRN PRN ORAL Constipation 08/01/17 11:45 08/29/17 11:44 Tamsulosin HCl (Flomax) 0.8 mg BEDTIME ORAL 08/01/17 21:00 08/29/17 20:59 08/02/17 20:46 Vitamin D (Vitamin D) 2,000 intlu DAILY ORAL 08/02/17 09:00 08/30/17 08:59 08/02/17 08:48 Madie Lua MD Aug 02, 2017 21:20
[2017-08-03] VITALS: BP 106/59
[2017-08-03] MEDS: Albuterol/Ipratropium 3ml neb HHN SCH ×2 (00:25→07:26)
[2017-08-03 04:00] VITALS: BP 126/85
[2017-08-03] MEDS: NovoLOG Insulin Flexpen SUBQ SCH (06:30)
[2017-08-03 08:00] VITALS: BP 125/80
[2017-08-03] MEDS: Docusate 100mg cap ORAL SCH (08:08)
[2017-08-03] MEDS: Vitamin D 1000 IU Tab ORAL SCH (08:08)
[2017-08-03] MEDS: Aspirin Baby 81mg ORAL SCH (08:08)
[2017-08-03] MEDS: metFORMIN 500mg tab ORAL SCH (08:09)
[2017-08-03] MEDS: Amantadine 100mg cap ORAL SCH (08:09)
[2017-08-03] MEDS: Heparin 5000 units/ml inj SUBQ SCH (08:11)
[2017-08-03 08:14] VITALS: BP 125/80
[2017-08-03] MEDS: Metoprolol 25mg tab ORAL SCH (08:14)
--- NOTE | 2017-08-03 09:01 | General Progress Note ---
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 SNOMED: 084900616 (5) Depression ICD Codes: F32.9 - Major depressive disorder, single episode, unspecified SNOMED: 60852551 Status: stable Assessment/Plan Pulmonology consulted s/p solumedrol 125mg IV in ED Cont steroids per pulm: decr to solumedrol 60mg IV daily and taper as tolerated Cont duonebs ATC and PRN Azithro 500mg daily Check TTE to ensure no cardiac etiology to SOB Cont home meds CYNDI Incr Levemir to 35U daily Pain control, supportive care, bowel regimen PT/OT CM consulted for SNF placement DVT Prophylaxis: SCD, HSQ Code Status: Full Hospital Classification Declaration: Based on this initial evaluation, and depending on the patient's clinical course, I anticipate that this patient will require hospitalization for 1-2 days for COPD exacerbation and close respiratory /hemodynamic monitoring. Disposition: Once the patient is stable to leave the hospital, I anticipate the patient will likely be discharged to the following environment: SNF Discussed with patient/family, nursing staff, SW/CM, pulmonology regarding clinical status, treatment course, and disposition planning. D/w pulm re tapering steroids Time of note may not reflect time of encounter. Subjective Date patient seen: Aug 02, 2017 Time patient seen: 14:00 ROS Limited/Unobtainable: No Constitutional: Reports: no symptoms HEENT: Reports: no symptoms Respiratory: Reports: cough, shortness of breath Gastrointestinal/Abdominal: Reports: no symptoms Genitourinary: Reports: no symptoms Endocrine: Reports: no symptoms Hematologic/Lymphatic: Reports: no symptoms Allergies: Coded Allergies: SHARK LIVER OIL (Unverified Allergy, Unknown, 12/27/15) Uncoded Allergies: SHARK (Allergy, Mild, RASH, 09/01/15) Subjective No acute o/n events Cont to have cough, SOB and wheezing but feeling slightly better today. Ambulated and felt more SOB. Denies f/c, n/v, d/c, chest pain, abd pain Pt states feels weak and not ready to go home. Interested in rehab Objective Last 24 Hour Vital Signs Date Time Temp Pulse Resp B/P (MAP) Pulse Ox O2 Delivery O2 Flow Rate FiO2 08/03/17 08:14 68 125/80 08/03/17 07:28 85 18 98 Room Air 21 08/03/17 07:20 81 18 92 Room Air 21 08/03/17 04:00 97.5 69 17 126/85 97.5 08/03/17 04:00 Room Air 08/03/17 00:45 73 18 97 Room Air 21 08/03/17 00:45 21 08/03/17 00:25 74 20 93 Room Air 21 08/03/17 00:00 Room Air 08/03/17 00:00 97.5 64 18 106/59 99 97.5 08/02/17 20:16 97.9 83 19 138/93 96 97.9 08/02/17 19:55 74 18 97 Room Air 21 08/02/17 19:55 21 08/02/17 19:41 76 20 96 Room Air 21 08/02/17 16:00 97.7 87 24 128/73 97 97.7 08/02/17 13:29 21 08/02/17 13:29 81 18 99 Room Air 21 08/02/17 13:29 80 20 95 Room Air 08/02/17 12:00 97.9 67 26 121/79 92 97.9 08/02/17 10:16 84 18 98 Room Air 21 08/02/17 10:16 21 08/02/17 10:15 82 20 94 Room Air 21 Intake and Output 08/02/17 08/03/17 19:00 07:00 Intake Total 1400 ml Output Total 900 ml Balance 1400 ml -900 ml Intake Oral 1200 ml IV Total 200 ml Output Urine Total 900 ml # Voids 4 # Bowel Movements 2 Height (Feet): 5 Height (Inches): 11.00 Weight (Pounds): 178 Objective General: alert, cooperative, no distress, appears stated age Head: normocephalic, without obvious abnormality, atraumatic Eyes: conjunctivae/corneas clear. PERRL, EOM's intact Throat: lips, mucosa, and tongue normal. MMM Neck: supple, symmetrical, trachea midline, and no JVD Lungs: +wheezing b/l Heart: regular rate and rhythm, S1, S2 normal, no murmur, click, rub or gallop Abdomen: soft, non-tender, non-distended, bowel sounds normal; no masses or organomegaly Extremities: extremities normal, atraumatic, no cyanosis or edema Pulses: 2+ and symmetric Skin: skin color, texture, turgor normal; no rashes or lesions Neurologic: grossly normal, no focal deficits Wayne Rodriguez M.D. Aug 03, 2017 09:01
[2017-08-03] MEDS ORDERED: DUONEB 0.5-3(2.53 ML HHN ×2 (10:07)
[2017-08-03] MEDS ORDERED: ZITHROMAX250 MG ORAL (10:07)
--- NOTE | 2017-08-03 19:57 | Pulmonology Progress Note ---
Assessment/Plan Problems: (1) COPD exacerbation (2) Diabetes (3) Dyspnea (4) Purulent bronchitis Assessment/Plan impriving check sputum chest pt respiratory treatment dvt prophylaxis dc planning Subjective ROS Limited/Unobtainable: No Allergies: Coded Allergies: SHARK LIVER OIL (Unverified Allergy, Unknown, 12/27/15) Uncoded Allergies: SHARK (Allergy, Mild, RASH, 09/01/15) Objective Last 24 Hour Vital Signs Date Time Temp Pulse Resp B/P (MAP) Pulse Ox O2 Delivery O2 Flow Rate FiO2 08/03/17 08:14 68 125/80 08/03/17 08:00 97.3 68 19 125/80 94 97.3 08/03/17 07:28 85 18 98 Room Air 21 08/03/17 07:20 81 18 92 Room Air 21 08/03/17 04:00 97.5 69 17 126/85 97.5 08/03/17 04:00 Room Air 08/03/17 00:45 73 18 97 Room Air 21 08/03/17 00:45 21 08/03/17 00:25 74 20 93 Room Air 21 08/03/17 00:00 Room Air 08/03/17 00:00 97.5 64 18 106/59 99 97.5 08/02/17 20:16 97.9 83 19 138/93 96 97.9 Intake and Output 08/02/17 08/03/17 19:00 07:00 Intake Total 1400 ml Output Total 900 ml Balance 1400 ml -900 ml Intake Oral 1200 ml IV Total 200 ml Output Urine Total 900 ml # Voids 4 # Bowel Movements 2 Objective General Appearance: cachectic HEENT: normocephalic, atraumatic, anicteric Respiratory/Chest: chest wall non-tender, rhonchi L>R Breasts: no masses Cardiovascular: normal peripheral pulses Abdomen: normal bowel sounds Genitourinary: normal external genitalia Madie Lua MD Aug 03, 2017 19:57
--- NOTE | 2017-08-03 23:59 | Consultation ---
History of Present Illness General Date patient seen: Aug 01, 2017 Chief Complaint: Dyspnea/Respdistress Present Illness HPI 61y/o male with pmh of HTN, COPD, DM2, depression who presents with SOB and cough. Pt has been having worsening symptoms of cough and SOB for the past few weeks. the pt is anxious and stressed out. the pt sleeps well on remeron and was reluctant to change the medication. the pt has no si/hi. the pt has low energy. Allergies: Coded Allergies: SHARK LIVER OIL (Unverified Allergy, Unknown, 12/27/15) Uncoded Allergies: SHARK (Allergy, Mild, RASH, 09/01/15) Medication History Scheduled Albuterol Sulfate (Proventil Hfa), 2 PUFFS INH BID, (Reported) Amantadine Hcl* (Symmetrel*), 100 MG ORAL DAILY, (Reported) Aspirin* (Aspirin*), 81 MG ORAL DAILY, (Reported) Azithromycin* (Zithromax*), 500 MG ORAL Q24H Cholecalciferol (Vitamin D3)* (Vitamin D*), 2,000 UNITS ORAL DAILY, (Reported) Cyclobenzaprine Hcl (Amrix), 15 MG ORAL DAILY, (Reported) Dutasteride (Avodart), 0.5 MG ORAL QHS, (Reported) Formoterol Fumarate (Perforomist), Unknown Dose IH BID, (Reported) Gabapentin* (Gabapentin*), 600 MG ORAL DAILY, (Reported) Glycopyrrolate/Formoterol Fum (Bevespi Aerosphere Inhaler), 2 PUFFS IH BID, ( Reported) Insulin Degludec/Liraglutide (Xultophy 100 Unit-3.6MG/Ml Pen), 40 UNITS SQ QHS, (Reported) Ipratropium/Albuterol Sulfate (DuoNeb 0.5-3(2.5)mg/3ml), 3 ML HHN Q6HRT Metformin Hcl* (Metformin Hcl*), 500 MG ORAL TWICE A DAY, (Reported) Metoprolol Tartrate* (Metoprolol Tartrate*), 25 MG ORAL DAILY, (Reported) Mirtazapine* (Remeron*), 30 MG ORAL BEDTIME, (Reported) Omeprazole (Omeprazole), 20 MG ORAL DAILY, (Reported) Roflumilast (Daliresp), 500 MCG PO DAILY, (Reported) Tamsulosin Hcl (Tamsulosin Hcl*), 0.8 MG ORAL BEDTIME, (Reported) Scheduled PRN Insulin Aspart (Novolog Flexpen), SQ TID PRN for SLIDING SCALE, (Reported) Ipratropium/Albuterol Sulfate (DuoNeb 0.5-3(2.5)mg/3ml), 3 ML HHN Q4H PRN Linaclotide (Linzess), 145 MCG PO DAILY PRN for Constipation, (Reported) Oxycodone Hcl* (Roxicodone*), 30 MG ORAL Q8HR PRN for FOR PAIN (SEE PT COMMENTS) , (Reported) Discontinued Medications Albuterol Sulfate (Ventolin Hfa), 2 PUFFS INH EVERY 6 HOURS PRN for Shortness of Breath, (Reported) Discontinued Reason: Therapy completed Albuterol Sulfate* (Proair Hfa*), 1 PUFF INH QID, (Reported) Discontinued Reason: Therapy completed Aspirin/Acetaminophen/Caffeine (Excedrin Extra Strength Caplet), 2 TAB PO DAILY PRN for For Pain, (Reported) Discontinued Reason: Pt stopped taking med Budesonide/Formoterol Fumarate (Symbicort 160-4.5 Mcg Inhaler), 1 PUFF INH TWICE A DAY, (Reported) Discontinued Reason: Therapy completed Clarithromycin (Clarithromycin), 500 MG ORAL TWICE A DAY, (Reported) Discontinued Reason: Therapy completed Escitalopram Oxalate* (Lexapro*), 20 MG ORAL DAILY, (Reported) Discontinued Reason: Therapy completed Furosemide* (Lasix*), 20 MG ORAL DAILY, (Reported) Discontinued Reason: Therapy completed Insulin Degludec (Tresiba Flextouch U-200), 30 UNIT SQ QHS, (Reported) Discontinued Reason: Therapy completed Methylprednisolone (Medrol), 8 MG PO, (Reported) Discontinued Reason: Therapy completed Mometasone Furoate (Nasonex), 2 SPRAYS NASAL DAILY PRN for ALLERGIES, (Reported) Discontinued Reason: Therapy completed Potassium Chloride* (K-Dur*), 10 MEQ ORAL DAILY, (Reported) Discontinued Reason: Therapy completed Prednisone* (Prednisone*), 5 MG ORAL DAILY, (Reported) Discontinued Reason: Therapy completed Suvorexant (Belsomra), 20 MG PO QHS, (Reported) Discontinued Reason: Pt stopped taking med Theophylline Anhydrous (Theophylline), 100 MG PO EVERY 12 HOURS, (Reported) Discontinued Reason: Prescription changed Theophylline Anhydrous (Theophylline Anhydrous), 300 MG PO Q12HR, (Reported) Discontinued Reason: MD discontinued med Tiotropium [place]* (Spiriva*), 1 PUFF INH DAILY, (Reported) Discontinued Reason: Therapy completed Patient History Limited by: medical condition History Provided By: Patient, Medical Record, PMD Healthcare decision maker N Resuscitation status Full Code Advanced Directive on File No Past Medical/Surgical History Past Medical/Surgical History: (1) Arrhythmia (2) Uncontrolled diabetes mellitus with hyperglycemia (3) Abnormal laboratory test result (4) ACS (acute coronary syndrome) (5) COPD (chronic obstructive pulmonary disease) (6) Depression (7) HTN (hypertension) (8) Insulin dependent type 2 diabetes mellitus (9) Purulent bronchitis (10) COPD exacerbation (11) Diabetes (12) Dyspnea Review of Systems Psychiatric: Reports: prior hx, anxiety, depressed feelings, emotional problems Physical Exam General Appearance: WD/WN, no apparent distress, alert Neurologic: alert, oriented x 3, responsive, depressed affect Last 24 Hour Vital Signs Date Time Temp Pulse Resp B/P (MAP) Pulse Ox O2 Delivery O2 Flow Rate FiO2 08/03/17 08:14 68 125/80 08/03/17 08:00 97.3 68 19 125/80 94 97.3 08/03/17 07:28 85 18 98 Room Air 21 08/03/17 07:20 81 18 92 Room Air 21 08/03/17 04:00 97.5 69 17 126/85 97.5 08/03/17 04:00 Room Air 08/03/17 00:45 73 18 97 Room Air 21 08/03/17 00:45 21 08/03/17 00:25 74 20 93 Room Air 21 08/03/17 00:00 Room Air 08/03/17 00:00 97.5 64 18 106/59 99 97.5 Intake and Output 08/02/17 08/03/17 19:00 07:00 Intake Total 1400 ml Output Total 900 ml Balance 1400 ml -900 ml Intake Oral 1200 ml IV Total 200 ml Output Urine Total 900 ml # Voids 4 # Bowel Movements 2 Height (Feet): 5 Height (Inches): 11.00 Weight (Pounds): 178 Assessment/Plan Status: stable, progressing Assessment/Plan mdd anxiety remeron 30 mg qhs Ananth Costello M.D. Aug 03, 2017 23:59
--- NOTE | 2017-08-03 23:59 | General Progress Note ---
Assessment/Plan Status: stable Assessment/Plan mdd anxiety remeron 30 mg qhs Subjective Date patient seen: Aug 02, 2017 Neurologic/Psychiatric: Reports: anxiety, depressed, emotional problems Allergies: Coded Allergies: SHARK LIVER OIL (Unverified Allergy, Unknown, 12/27/15) Uncoded Allergies: SHARK (Allergy, Mild, RASH, 09/01/15) Objective Last 24 Hour Vital Signs Date Time Temp Pulse Resp B/P (MAP) Pulse Ox O2 Delivery O2 Flow Rate FiO2 08/03/17 08:14 68 125/80 08/03/17 08:00 97.3 68 19 125/80 94 97.3 08/03/17 07:28 85 18 98 Room Air 21 08/03/17 07:20 81 18 92 Room Air 21 08/03/17 04:00 97.5 69 17 126/85 97.5 08/03/17 04:00 Room Air 08/03/17 00:45 73 18 97 Room Air 21 08/03/17 00:45 21 08/03/17 00:25 74 20 93 Room Air 08/03/17 00:00 Room Air 08/03/17 00:00 97.5 64 18 106/59 99 97.5 Intake and Output 08/02/17 08/03/17 19:00 07:00 Intake Total 1400 ml Output Total 900 ml Balance 1400 ml -900 ml Intake Oral 1200 ml IV Total 200 ml Output Urine Total 900 ml # Voids 4 # Bowel Movements 2 Height (Feet): 5 Height (Inches): 11.00 Weight (Pounds): 178 General Appearance: no apparent distress, alert Neurologic: alert, oriented x 3, responsive, depressed affect Ananth Costello M.D. Aug 03, 2017 23:59
--- NOTE | 2017-08-09 14:49 | Discharge Summary ---
Discharge Summary Hospital Course Date of Admission Jul 30, 2017 at 18:38 Date of Discharge Aug 03, 2017 at 11:50 Admitting Diagnosis copd exacerbation Reason for Hospitalization: acute copd exacerbation HPI 61y/o male with pmh of HTN, COPD, DM2, depression who presents with SOB and cough. Pt states he has been having worsening symptoms of cough and SOB for the past few weeks. He c/o subjective fever/chills. States he was recently hospitalized at another hospital for similar symptoms. He has been taking prednisone 5mg daily. He reports increased sputum production. Denies hemoptysis , n/v, d/c, abd pain, chest pain. Notes increased SOB w/ activity/exertion. In ED, pt noted to be in some respiratory distress w/ wheezing. He was given solumedrol 125mg IV, duonebs w/ some improvement. Trop neg. EKG w/ no acute ST/ T changes. CXR showed no e/o infiltrate. Consultations Pulmonology Hospital Course Pt was admitted and seen by pulmonology. He was continued on IV steroids which were slowly tapered per pulmonology. He also received azithromycin for likely bronchitis. Pt had slow improvement. TTE showed EF 55-60%. Once wheezing improved and weaned of supplemental O2, pt was discharged to SNF. Discharge physical exam: General: alert, cooperative, no distress, appears stated age Head: normocephalic, without obvious abnormality, atraumatic Eyes: conjunctivae/corneas clear. PERRL, EOM's intact Throat: lips, mucosa, and tongue normal. MMM Neck: supple, symmetrical, trachea midline, and no JVD Lungs: clear to auscultation bilaterally Heart: regular rate and rhythm, S1, S2 normal, no murmur, click, rub or gallop Abdomen: soft, non-tender, non-distended, bowel sounds normal; no masses or organomegaly Extremities: extremities normal, atraumatic, no cyanosis or edema Pulses: 2+ and symmetric Skin: skin color, texture, turgor normal; no rashes or lesions Neurologic: grossly normal, no focal deficits Discharge diagnoses: 1) Acute COPD exacerbation ICD Codes: J44.1 - Chronic obstructive pulmonary disease with (acute) exacerbation SNOMED: 360317924 (2) Purulent bronchitis ICD Codes: J41.1 - Mucopurulent chronic bronchitis SNOMED: 19168608 (3) HTN (hypertension) ICD Codes: I10 - Essential (primary) hypertension SNOMED: 34165174 (4) Insulin dependent type 2 diabetes mellitus ICD Codes: E11.9 - Type 2 diabetes mellitus without complications; Z79.4 - nursing home (current) use of insulin SNOMED: 936431558 (5) Depression ICD Codes: F32.9 - Major depressive disorder, single episode, unspecified Discharge Medications New Medications: Azithromycin* (Zithromax*) 250 Mg Tablet 500 MG ORAL Q24H for 3 Days, TAB Ipratropium/Albuterol Sulfate (DuoNeb 0.5-3(2.5)mg/3ml) 3 Ml Ampul.neb 3 ML HHN Q6HRT for 14 Days, EA Ipratropium/Albuterol Sulfate (DuoNeb 0.5-3(2.5)mg/3ml) 3 Ml Ampul.neb 3 ML HHN Q4H PRN for 30 Days, EA Continued Medications: Albuterol Sulfate (Proventil Hfa) 6.7 Gm Hfa.aer.ad 2 PUFFS INH BID Amantadine Hcl* (Symmetrel*) 100 Mg Capsule 100 MG ORAL DAILY Aspirin* (Aspirin*) 81 Mg Tab.chew 81 MG ORAL DAILY, TAB Cholecalciferol (Vitamin D3)* (Vitamin D*) 1,000 Unit Tablet 2000 UNITS ORAL DAILY, #30 TAB 0 Refills Cyclobenzaprine Hcl (Amrix) 15 Mg Cap.er.24h 15 MG ORAL DAILY, 0 Refills Dutasteride (Avodart) 0.5 Mg Capsule 0.5 MG ORAL QHS Formoterol Fumarate (Perforomist) Unknown Strength Vial.neb Unknown Dose IH BID, VIAL Gabapentin* (Gabapentin*) 600 Mg Tablet 600 MG ORAL DAILY Glycopyrrolate/Formoterol Fum (Bevespi Aerosphere Inhaler) 10.7 Gm Hfa.aer.ad 2 PUFFS IH BID Insulin Aspart (Novolog Flexpen) 100 Unit/1 Ml Insuln.pen SQ TID PRN for SLIDING SCALE Insulin Degludec/Liraglutide (Xultophy 100 Unit-3.6MG/Ml Pen) 3 Ml Insuln.pen 40 UNITS SQ QHS, EA Linaclotide (Linzess) 145 Mcg Capsule 145 MCG PO DAILY PRN for Constipation, CAP Metformin Hcl* (Metformin Hcl*) 500 Mg Tablet 500 MG ORAL TWICE A DAY, TAB Metoprolol Tartrate* (Metoprolol Tartrate*) 25 Mg Tablet 25 MG ORAL DAILY Mirtazapine* (Remeron*) 30 Mg Tablet 30 MG ORAL BEDTIME, TAB Omeprazole (Omeprazole) 20 Mg Capsule.dr 20 MG ORAL DAILY Oxycodone Hcl* (Roxicodone*) 30 Mg Tablet 30 MG ORAL Q8HR PRN for FOR PAIN (SEE PT COMMENTS) 2 TABS (60MG) QAM, 2 TABS (60MG) QNOON, 1 TAB (30MG) QHS. Roflumilast (Daliresp) 500 Mcg Tablet 500 MCG PO DAILY Tamsulosin Hcl (Tamsulosin Hcl*) 0.4 Mg Cap.er.24h 0.8 MG ORAL BEDTIME Discontinued Medications: Prednisone* (Prednisone*) 2.5 Mg Tablet 5 MG ORAL DAILY, #10 TAB 0 Refills Theophylline Anhydrous (Theophylline Anhydrous) 300 Mg Tab.er.12h 300 MG PO Q12HR, TAB Discharge Condition Upon Discharge: stable Discharge Disposition Patient was discharged to SNF/Subacute Facility(03) Discharge Diagnoses: Wayne Rodriguez M.D. Aug 09, 2017 14:49
== END 2017-08-03 11:50 | DRG 192 ==
LOC: EMR 17:30 → 2E 18:38 → EDBEDREQ 20:28 → 2E 23:14 → 4W 08-01 11:20
DX: J44.1 Chronic obstructive pulmonary disease with (acute) exacerbation (principal); I10 Essential (primary) hypertension; J41.1 Mucopurulent chronic bronchitis; E11.9 Type 2 diabetes mellitus without complications; Z79.4 Long term (current) use of insulin; F32.9 Major depressive disorder, single episode, unspecified; Z87.891 Personal history of nicotine dependence
CPT/HCPCS: 36415; 36600; 71045; 80048; 80053; 81003; 82550; 82553; 82803; 82962; 83690; 83735; 83880; 84100; 84484; 85025; 85610; 85730; 93005; 93306; 94640; 94664; 99285; J1815; J7620; S5561

== ENCOUNTER 2019-03-31 12:10 | Inpatient (IN) | payer MEDICARE, MEDICAID ==
[2019-03-31] VITALS (7 sets, daily range): BP systolic 67–107; BP diastolic 36–66
[~2019-03-31] VITALS: Ht 182.9 cm; Wt 88.7 kg
[~2019-03-31 12:10] MED LIST changes: +DUONEB 0.5-3(2.53 ML HHN; +MIRTAZAPINE30 MG ORAL; +PERFOROMIS20 MCG/2 M IH; +PREDNISONE2.5 MG ORAL; +PROVENTIL HFA6.7 G1 INH; +VITAMIN D1000 UNI1 ORAL; +XULTOPHY 100 UNI3 ML SQ; +ZITHROMAX250 MG ORAL
--- NOTE | 2019-03-31 12:15 | NUR ---
ED Nurse Note: pt brought in by [facility] from bus stop, per EMS report pt had syncopal episode witessed by bystanders, when the service captain arrived pt had second syncopal episode, and when the medics arrived pt had third syncopal episode. pt currently AA&ox4 but noted pt lethargic, noted pt BP systolic in 60s, ERMD notified. noted 18g on right hand started by EMS on field, fluids running. pt sinus rhythm on monitoring specialist, will cont monitor. pt reports he has history of low blood pressure and had syncopal episode before. safety precautions in place, pt advised to notify staff if needed assist.
--- NOTE | 2019-03-31 12:16 | Emergency Room Report ---
History of Present Illness General Source: Patient, EMS Present Illness HPI Patient recently discharged from the hospital a few days ago. He was at a store and was walking to a bus stop and passed out. Paramedics were called for the syncope. traveling construction superintendent had a blood pressure of 90 when he was sitting up. The patient was stood up to transfer to a different gurney and he passed out a second time. He complains of being thirsty. He denies any pain anyplace in his body. There has been no nausea, vomiting, diarrhea or dysuria. Paramedics gave the patient a bolus of 400 normal saline area his blood pressure was somewhat better after this but he still is somewhat altered. Paramedics performed a 12-lead which revealed normal sinus rhythm without injury. Patient has a history of stents. History of COPD with prior steroid usage. Insulin-dependent diabetic. Patient last admit July this year. 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 Allergies: Coded Allergies: SHARK LIVER OIL (Unverified Allergy, Unknown, 12/27/15) Uncoded Allergies: SHARK (Allergy, Mild, RASH, 09/01/15) Patient History Past Medical History: see triage record Past Surgical History: PTCA Social History: Denies: smoking - Former Social History Narrative Lives by himself Reviewed Nursing Documentation: PMH: Agreed; PSxH: Agreed Nursing Documentation-PMH Hx Cardiac Problems: Yes Hx Asthma: Yes Hx COPD: Yes Hx Diabetes: Yes Hx Cancer: No Hx Gastrointestinal Problems: Yes - IBS Hx Neurological Problems: No Hx Cerebrovascular Accident: No Review of Systems All Other Systems: negative except mentioned in HPI Physical Exam Vital Signs Date Time Temp Pulse Resp B/P (MAP) Pulse Ox O2 Delivery O2 Flow Rate FiO2 03/31/19 12:11 98.2 72 16 129/82 (98) 99 Room Air Sp02 EP Interpretation: reviewed, normal General Appearance: well appearing, no apparent distress, alert - Slightly slow to respond, non-toxic, other Head: normocephalic Eyes: bilateral eye PERRL, bilateral eye other - Arcus bilaterally ENT: dry mucus membranes Neck: supple Respiratory: lungs clear, normal breath sounds Cardiovascular #1: regular rate, rhythm, edema Cardiovascular #2: 2+ radial (L) Gastrointestinal: normal inspection, normal bowel sounds, non tender, no mass, non-distended Musculoskeletal: back normal, normal range of motion, no calf tenderness Neurologic: alert, motor strength/tone normal, DTRs symmetric, sensory intact, other - Slow speaking in all 4 extremities Psychiatric: depressed affect Skin: warm/dry, pallor - Plethoric Procedures Critical Care Time Critical Care Time Total Critical Care Time: 45 min bedside evaluation and treatment excludes procedures (EKG). Reason for critical care: Persistent hypotension, elevated lactic acid, hypothyroidism, repeat evaluations Possible complications: hypotension, hypertension, RI, shock, arrhythmias, metabolic acidosis, end organ damage, respiratory failure. Interventions: Multiple fluid boluses, reevaluations, hydrocortisone Course: Patient presented with hypotension and altered mentation. Fluid boluses administered and evaluation. Repeat evaluation with continued hypotension. Continued fluid boluses. Consideration of myxedema and adrenal suppression like to hydrocortisone administration. Improved blood pressure and mentation after fluids and hydrocortisone. Consultations: nursing staff, EMS Performed by: Dr. Chang Tolerated well condition = serious Medical Decision Making Diagnostic Impression: Primary Impression: Syncope Qualified Codes: R55 - Syncope and collapse Additional Impressions: Transient hypotension Hypothyroidism Qualified Codes: E03.9 - Hypothyroidism, unspecified Elevated lactic acid level Renal failure Qualified Codes: N17.9 - Acute kidney failure, unspecified; N18.9 - Chronic kidney disease, unspecified ER Course Patient presents after syncopal episode with hypotension. Differential includes acute microinfarction, dehydration, sepsis, medication excess, pulmonary embolus amongst others. Patient will be evaluated EKG, chest x-ray and labs including lactate. The patient will receive IV hydration here. Patient is placed on a court recording monitor. No evidence of pulmonary embolus based on clinical exam. EKG sinus rhythm with bifascicular block. Ventricular hypertrophy and biatrial enlargement. Labs remarkable for normal white count and slight anemia. Renal insufficiency. Elevated TSH. Chest x-ray no infiltrates. Initial lactate elevated. Patient presents with hypotension. There is no evidence of infection at this time. Given patient's clinical presentation infectious etiology unlikely. Consideration of myxedema and adrenal suppression from prednisone. Hydrocortisone administered. Hypotension improved with fluids and cortisol. Fully alert, non-focal. Repeat lactic acid improved. Patient admitted to stepdown unit. Laboratory Tests Test 03/31/19 12:10 03/31/19 13:10 03/31/19 13:55 White Blood Count 5.3 K/UL (4.8-10.8) Red Blood Count 4.27 M/UL (4.70-6.10) L Hemoglobin 10.7 G/DL (14.2-18.0) L Hematocrit 34.6 % (42.0-52.0) L Mean Corpuscular Volume 81 FL (80-99) Mean Corpuscular Hemoglobin 25.2 PG (27.0-31.0) L Mean Corpuscular Hemoglobin Concent 31.0 G/DL (32.0-36.0) L Red Cell Distribution Width 16.0 % (11.6-14.8) H Platelet Count 323 K/UL (150-450) Mean Platelet Volume 5.8 FL (6.5-10.1) L Neutrophils (%) (Auto) 55.9 % (45.0-75.0) Lymphocytes (%) (Auto) 28.6 % (20.0-45.0) Monocytes (%) (Auto) 12.9 % (1.0-10.0) H Eosinophils (%) (Auto) 2.0 % (0.0-3.0) Basophils (%) (Auto) 0.6 % (0.0-2.0) Prothrombin Time 11.8 SEC (9.30-11.50) H Prothrombin Time INR 1.1 (0.9-1.1) PTT 36 SEC (23-33) H Sodium Level 140 MMOL/L (136-145) Potassium Level 4.0 MMOL/L (3.5-5.1) Chloride Level 103 MMOL/L (98-107) Carbon Dioxide Level 23 MMOL/L (21-32) Anion Gap 14 mmol/L (5-15) Blood Urea Nitrogen 9 mg/dL (7-18) Creatinine 2.6 MG/DL (0.55-1.30) H Estimate Glomerular Filtration Rate 30.2 mL/min (>60) Glucose Level 202 MG/DL (74-106) H Lactic Acid Level 3.90 mmol/L (0.4-2.0) H 1.20 mmol/L (0.66-2.22) Calcium Level 8.2 MG/DL (8.5-10.1) L Total Bilirubin 0.7 MG/DL (0.2-1.0) Aspartate Amino Transferase (AST) 113 U/L (15-37) H Alanine Aminotransferase (ALT) 49 U/L (12-78) Alkaline Phosphatase 61 U/L (46-116) Total Creatine Kinase 386 U/L (26-308) H Troponin I 0.030 ng/mL (0.000-0.056) Pro-B-Type Natriuretic Peptide 98 pg/mL (0-125) Total Protein 6.9 G/DL (6.4-8.2) Albumin 2.7 G/DL (3.4-5.0) L Globulin 4.2 g/dL Albumin/Globulin Ratio 0.6 (1.0-2.7) L Lipase 60 U/L (73-393) L Thyroid Stimulating Hormone (TSH) 18.633 uiU/mL (0.358-3.740) Urine Color Pale yellow Urine Appearance Clear Urine pH 7 (4.5-8.0) Urine Specific Nichols 1.010 (1.005-1.035) Urine Protein Negative (NEGATIVE) Urine Glucose (UA) Negative (NEGATIVE) Urine Ketones Negative (NEGATIVE) Urine Blood Negative (NEGATIVE) Urine Nitrite Negative (NEGATIVE) Urine Bilirubin Negative (NEGATIVE) Urine Urobilinogen Normal MG/DL (0.0-1.0) Urine Leukocyte Esterase Negative (NEGATIVE) Urine Opiates Screen Negative (NEGATIVE) Urine Barbiturates Screen Negative (NEGATIVE) Phencyclidine (PCP) Screen Negative (NEGATIVE) Urine Amphetamines Screen Negative (NEGATIVE) Urine Benzodiazepines Screen Negative (NEGATIVE) Urine Cocaine Screen Negative (NEGATIVE) Urine Marijuana (THC) Screen Negative (NEGATIVE) EKG Diagnostic Results Rate: normal Rhythm: NSR ST Segments: no acute changes - Bifascicular block Rhythm Strip Diag. Results EP Interpretation: yes Rhythm: NSR, no PVC's, no ectopy Chest X-Ray Diagnostic Results Chest X-Ray Diagnostic Results : Chest X-Ray Ordered: Yes # of Views/Limited/Complete: 1 View Indication: Other EP Interpretation: Yes Interpretation: no consolidation, no effusion, no pneumothorax, other - Increasee hilar jackson right Impression: Other Electronically Signed by: Electronically signed by Myke Chang MD Last Vital Signs Date Time Temp Pulse Resp B/P (MAP) Pulse Ox O2 Delivery O2 Flow Rate FiO2 04/01/19 00:00 97.9 74 20 104/60 (75) 98 04/01/19 00:00 Room Air 03/31/19 20:38 21 03/31/19 13:40 2.0 Status: improved Disposition: ADMITTED INPATIENT Condition: Serious Myke Chang MD Mar 31, 2019 12:16
--- NOTE | 2019-03-31 12:30 | NUR ---
ED Nurse Note: blood specimen obtained per ERMD order and fluid started per ERMD order, pt c/o burning pain on right hand, iv d/c and dressing applied. 20g iv on left ac started, pt tolerated well w/ 1 attempt. site intact and patent. warm blanket provided for comfort. noted pt o2sat down to 86% on RA, pt has hx COPD, ermd notified and started o2 via nc 2L/min. will cont monitor. o2 sat w/oxygen noted 99%. verified w/ ERMD, pt can drink, pt given water and tolerated well. pt advised to notify staff if needed assist. safety cautions in place.
--- NOTE | 2019-03-31 12:58 | NUR ---
HAND-OFF: Report given to JOLLY Stringer.
[2019-03-31 12:59] LABS: BASOPHILS % (AUTO) 0.6 % (0.0-2.0); HEMATOCRIT 34.6 % (42.0-52.0); HEMOGLOBIN 10.7 G/DL (14.2-18.0); LYMPHOCYTES % (AUTO) 28.6 % (20.0-45.0); MEAN CORPUSCULAR VOLUME 81 FL (80-99); MONOCYTES % (AUTO) 12.9 % (1.0-10.0); NEUTROPHILS % (AUTO) 55.9 % (45.0-75.0); PLATELET COUNT 323 K/UL (150-450); RED BLOOD COUNT 4.27 M/UL (4.70-6.10); WHITE BLOOD COUNT 5.3 K/UL (4.8-10.8)
[2019-03-31 13:07] LABS: ANION GAP 14 mmol/L (5-15); BLOOD UREA NITROGEN 9 mg/dL (7-18); CALCIUM 8.2 MG/DL (8.5-10.1); CARBON DIOXIDE 23 MMOL/L (21-32); CHLORIDE 103 MMOL/L (98-107); CREATININE 2.6 MG/DL (0.55-1.30); INR 1.1 (0.9-1.1); SODIUM 140 MMOL/L (136-145)
--- NOTE | 2019-03-31 13:19 | Diagnostic Imaging Report ---
EXAM: XR Chest, 1 View CLINICAL HISTORY: SYNCOPE TECHNIQUE: Frontal view of the chest. COMPARISON: Chest x-ray report 3 17 FINDINGS: Lungs: Left lung base atelectasis mild opacity may be an infiltrate. Pleural space: Unremarkable. No pneumothorax. Heart: Unremarkable. No cardiomegaly. Mediastinum: Unremarkable. Bones joints: Thoracolumbar scoliosis. Lower cervical spine hardware. IMPRESSION: Left lung base atelectasis mild opacity may be an infiltrate.
[2019-03-31 13:23] LABS: ALANINE AMINOTRANSFERASE 49 U/L (12-78); ALBUMIN 2.7 G/DL (3.4-5.0); ALBUMIN/GLOBULIN RATIO 0.6 (1.0-2.7); ALKALINE PHOSPHATASE 61 U/L (46-116); ASPARTATE AMINO TRANSFERASE 113 U/L (15-37); BILIRUBIN,TOTAL 0.7 MG/DL (0.2-1.0); CREATINE KINASE 386 U/L (26-308)
[2019-03-31] MEDS ORDERED: THEOPHYLLINE A300 MG PO (13:36)
[2019-03-31] MEDS ORDERED: LISINOPRIL2.5 MG ORAL (13:36)
[2019-03-31] MEDS ORDERED: FERROUS SULFAT325 MG ORAL (13:36)
[2019-03-31] MEDS ORDERED: VENTOLIN HFA18 GM INH (13:36)
[2019-03-31 13:37] LABS: APPEARANCE,URINE CLEAR; BILIRUBIN, URINE NEGATIVE (NEGATIVE); COLOR,URINE PALE YELLOW; GLUCOSE, URINE (UA) NEGATIVE (NEGATIVE); KETONES,URINE NEGATIVE (NEGATIVE); LEUKOCYTE ESTERASE ,URINE NEGATIVE (NEGATIVE); NITRITE,URINE NEGATIVE (NEGATIVE); PH,URINE 7 (4.5-8.0); PROTEIN,URINE NEGATIVE (NEGATIVE); UROBILINOGEN,URINE NORMAL MG/DL (0.0-1.0)
[2019-03-31] MEDS ORDERED: SINEMET 25-1001 EAC1 ORAL (13:42)
[2019-03-31] MEDS ORDERED: CLOTRIMAZOLE15 GM TOPIC (13:42)
[2019-03-31] MEDS ORDERED: ATORVASTATIN CA80 MG ORAL (13:42)
[2019-03-31] MEDS ORDERED: LOSARTAN POTASS25 MG ORAL (13:42)
[2019-03-31] MEDS ORDERED: NITRO0.4 SL (13:42)
[2019-03-31] MEDS ORDERED: TRIAMCINOLONE A15 G2 TP (13:42)
[2019-03-31] MEDS ORDERED: Hydrocortisone 100mg Inj IV ONE (13:45)
[2019-03-31] MEDS ORDERED: DALIRESP500 MCG PO (13:47)
[2019-03-31] MEDS ORDERED: VITAMIN D22000 UNIT PO (13:47)
[2019-03-31] MEDS ORDERED: DOXYCYCLINE HY100 M2 PO (13:47)
[2019-03-31] MEDS ORDERED: HYDROCORTISONE28 G2 TP (13:51)
[2019-03-31] MEDS ORDERED: ROZEREM8 MG PO (13:51)
[2019-03-31] MEDS ORDERED: LANTUS SOL100 UNIT/1 SUBQ (13:51)
[2019-03-31] MEDS ORDERED: ELIQUIS5 MG PO (13:51)
--- NOTE | 2019-03-31 15:00 | NUR ---
ED Nurse Note: report given to JOLLY Kang from SDU.
--- NOTE | 2019-03-31 15:00 | NUR ---
NURSE NOTES: Received report from JOLLY Kang. Patient arrived to unit in stable condition. No s/sx of SOB, breathing is even and unlabored. Bed is in lowest position, brakes engaged. Call light is kept within easy reach. Will continue to monitor patient.
--- NOTE | 2019-03-31 15:45 | NUR ---
NURSE NOTES: Patient is noted with $500 on persons. Per patient declines to put monies in safe and states would like to keep on persons. Monies counted at bedside with transferring nurse and charge nurse. Noted. Monies placed in patient's wallet and placed in belonging's bag. Belongings bag placed in drawer at bedside. Noted.
[2019-03-31] MEDS ORDERED: SINGULAIR5 M1 ORAL (16:12)
[2019-03-31] MEDS ORDERED: FLONASE ALLERG9.9 ML NS (16:12)
[2019-03-31] MEDS ORDERED: MYRBETRIQ25 MG PO (16:12)
--- NOTE | 2019-03-31 16:30 | NUR ---
NURSE NOTES: Dr. Tello covering for Dr. Jeter at nurse station. Seen and examined patient at bedside. Dr. Tello entered orders. Noted.
--- NOTE | 2019-03-31 16:42 | NUR ---
CASE MANAGEMENT: INITIAL REVIEW 63 YO M NILSON FROM HOME CC: SYNCOPE PMHx: ASTHMA. COPD. DM. IBS. SI:SYNCOPE T 98.2 HR 72 RR 16 B/P 129/82 SATS 99% ON RA LABS: CR 2.6 GLU 202 LACTIC ACID 3.9 AST 113 TOTAL CK 386 TSH 18.633 IS: NS BOLUS X2 PATIENT ADMITTED TO SDU 03/30/2019 @ 1320 DCP: PATIENT TO BE DISCHARGED TO HOME ONCE MEDICALLY CLEARED. PLAN OF CARE: IV HYDRATION Addendum: 03/31/19 at 1930 by Alie Suazo CM INTERQUAL MET
[2019-03-31] MEDS ORDERED: Albuterol/Ipratropium 3ml neb HHN PRN (16:45)
[2019-03-31] MEDS ORDERED: Miralax 17gm pkt ORAL PRN (16:45)
[2019-03-31] MEDS ORDERED: Nitroglycerin Subl 0.4mg tab SL PRN (16:45)
[2019-03-31] MEDS ORDERED: LORazepam Inj 2mg/ml 1ml IV PRN (16:45)
[2019-03-31] MEDS ORDERED: Morphine Sulfate 2mg/ml Inj(IV/IM USE ONLY) IVP PRN (16:45)
[2019-03-31] MEDS: Levodopa/Carbidopa 25/100 tab ORAL SCH (18:10)
--- NOTE | 2019-03-31 19:23 | History and Physical ---
History of Present Illness General Date patient seen: Mar 31, 2019 Time patient seen: 17:00 Reason for Hospitalization: Syncope Present Illness HPI 63 y/o AA male who was recently discharged from [facility] [place] ago. He reports having had EGD and colonoscopy during that hospital stay and denies any GI bleed or other findings. He has a history of CAD, s/p PCI with stent placement last May 2018 at [facility] by Dr. Ricardo Henriquez. He has IDDM on Lantus and Novolog sliding scale along with metformin, HLD on statin, He is on anticoagulation with Apixiban 5 mg BID. He was at a store today and was walking to a bus stop and passed out. Per ED report, Paramedics were called for the syncope. wash worker had a blood pressure of 90 when he was sitting up. The patient was stood up to transfer to a different gurney and he passed out a second time. He complains of being thirsty. He denies any pain anyplace in his body. Is been no nausea, vomiting, diarrhea or dysuria. Paramedics gave the patient a bolus of 400 normal saline area his blood pressure was somewhat better after this but he still is somewhat altered. Paramedics performed a 12-lead which revealed normal sinus rhythm without injury Currently, he is in the Hospital floor and denies prior renal failure in the past. Today, his creatinine was 2.6. denies any changes in urination and reports being told at [place] not to drink too much water ( ? history of heart failure ), he has not had a bowel movement x 3 days, denies fever, chills , cough, shortness of breath. He has been taking his BP medication which includes Lisinopril, Metoprolol. Denies prior thyroid abnormalities. His TSH noted to be 18.6, CK 386 and EKG with NSR bifascicular block, RBBB and LAFB, no ST changes or conduction defects. At baseline he uses a cane and denies recent falls. Allergies: Coded Allergies: SHARK LIVER OIL (Unverified Allergy, Unknown, 12/27/15) Uncoded Allergies: SHARK (Allergy, Mild, RASH, 09/01/15) Medication History Scheduled Albuterol Sulfate (Proventil Hfa), 2 PUFFS INH BID, (Reported) Albuterol Sulfate (Ventolin Hfa), 2 PUFFS INH EVERY 4 HOURS, (Reported) Amantadine Hcl* (Symmetrel*), 100 MG ORAL DAILY, (Reported) Apixaban (Eliquis), 5 MG PO TWICE A DAY, (Reported) Aspirin* (Aspirin*), 81 MG ORAL DAILY, (Reported) Atorvastatin Calcium* (Lipitor*), 80 MG ORAL BEDTIME, (Reported) Carbidopa/Levodopa 25-100 Mg* (Sinemet 25-100 Mg Tablet*), 1 TAB ORAL THREE TIMES A DAY, (Reported) Clotrimazole* (Lotrimin*), 1 APPLIC TOPIC TWICE A DAY, (Reported) Dutasteride (Avodart), 0.5 MG ORAL QHS, (Reported) Ergocalciferol (Vitamin D2) (Vitamin D2), 50,000 UNIT PO EVERY WEEK, (Reported) Ferrous Sulfate* (Ferrous Sulfate*), 325 MG ORAL DAILY, (Reported) Fluticasone Propionate (Flonase Allergy Relief), 9.9 ML NS DAILY, (Reported) Formoterol Fumarate (Perforomist), Unknown Dose IH BID, (Reported) Gabapentin* (Gabapentin*), 600 MG ORAL THREE TIMES A DAY, (Reported) Hydrocortisone 1% Oint (Hydrocortisone 1% Oint*), 28 GM TP TWICE A DAY, ( Reported) Insulin Degludec/Liraglutide (Xultophy 100 Unit-3.6MG/Ml Pen), 40 UNITS SQ QHS, (Reported) Insulin Glargine (Lantus), 15 SUBQ DAILY, (Reported) Ipratropium/Albuterol Sulfate (DuoNeb 0.5-3(2.5)mg/3ml), 3 ML HHN Q6HRT Lisinopril* (Lisinopril*), 2.5 MG ORAL DAILY, (Reported) Losartan Potassium* (Losartan Potassium*), 25 MG ORAL DAILY, (Reported) Metformin Hcl* (Metformin Hcl*), 500 MG ORAL TWICE A DAY, (Reported) Metoprolol Tartrate* (Metoprolol Tartrate*), 25 MG ORAL DAILY, (Reported) Mirabegron (Myrbetriq), 25 MG PO DAILY, (Reported) Mirtazapine* (Remeron*), 45 MG ORAL BEDTIME, (Reported) Montelukast Sodium (Singulair), 5 MG ORAL DAILY, (Reported) Omeprazole (Omeprazole), 40 MG ORAL BEDTIME, (Reported) Ramelteon (Rozerem), 8 MG PO BEDTIME, (Reported) Roflumilast (Daliresp), 500 MCG PO DAILY, (Reported) Roflumilast (Daliresp), 250 MCG PO TWICE A DAY, (Reported) Tamsulosin Hcl (Tamsulosin Hcl*), 0.8 MG ORAL BEDTIME, (Reported) Theophylline Anhydrous (Theophylline Anhydrous), 300 MG PO TWICE A DAY, ( Reported) Triamcinolone Acetonide (Triamcinolone Acetonide 0.1% Oint*), 0 TP TWICE A DAY, (Reported) Scheduled PRN Insulin Aspart (Novolog Flexpen), SQ TID PRN for SLIDING SCALE, (Reported) Ipratropium/Albuterol Sulfate (DuoNeb 0.5-3(2.5)mg/3ml), 3 ML HHN Q4H PRN Linaclotide (Linzess), 145 MCG PO DAILY PRN for Constipation, (Reported) Nitroglycerin 0.4MG table* (Nitroglycerin*), 0.4 MG SL .Q5MIN X 3 DOSES PRN for CHEST PAIN, (Reported) Oxycodone Hcl* (Roxicodone*), 30 MG ORAL Q8HR PRN for FOR PAIN (SEE PT COMMENTS) , (Reported) Discontinued Medications Azithromycin* (Zithromax*), 500 MG ORAL Q24H Discontinued Reason: Pt stopped taking med Cholecalciferol (Vitamin D3)* (Vitamin D*), 2,000 UNITS ORAL DAILY, (Reported) Discontinued Reason: Pt stopped taking med Cyclobenzaprine Hcl (Amrix), 15 MG ORAL DAILY, (Reported) Discontinued Reason: Pt stopped taking med Doxycycline Hyclate (Doxycycline Hyclate), 100 MG PO TWICE A DAY, (Reported) Discontinued Reason: Pt stopped taking med Glycopyrrolate/Formoterol Fum (Bevespi Aerosphere Inhaler), 2 PUFFS IH BID, ( Reported) Discontinued Reason: Pt stopped taking med Patient History Healthcare decision maker N Resuscitation status Full Code Advanced Directive on File Family History Family History: Patient reports no known family medical history. 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 normal, alert, oriented x 3 - s Last 24 Hour Vital Signs Date Time Temp Pulse Resp B/P (MAP) Pulse Ox O2 Delivery O2 Flow Rate FiO2 03/31/19 16:00 97.7 79 18 103/55 (71) 93 03/31/19 15:59 Room Air 03/31/19 15:47 79 03/31/19 14:54 79 18 107/66 100 Room Air 03/31/19 14:25 79 20 89/57 96 Room Air 03/31/19 13:40 78 18 83/50 100 Nasal Cannula 2.0 03/31/19 12:55 98.2 77 16 75/44 99 Nasal Cannula 2.0 03/31/19 12:11 97.8 78 16 67/36 93 Room Air 03/31/19 12:11 98.2 72 16 129/82 (98) 99 Room Air Laboratory Tests Test 03/31/19 12:10 03/31/19 13:10 03/31/19 13:55 03/31/19 18:45 White Blood Count 5.3 K/UL (4.8-10.8) Red Blood Count 4.27 M/UL (4.70-6.10) L Hemoglobin 10.7 G/DL (14.2-18.0) L Hematocrit 34.6 % (42.0-52.0) L Mean Corpuscular Volume 81 FL (80-99) Mean Corpuscular Hemoglobin 25.2 PG (27.0-31.0) L Mean Corpuscular Hemoglobin Concent 31.0 G/DL (32.0-36.0) L Red Cell Distribution Width 16.0 % (11.6-14.8) H Platelet Count 323 K/UL (150-450) Mean Platelet Volume 5.8 FL (6.5-10.1) L Neutrophils (%) (Auto) 55.9 % (45.0-75.0) Lymphocytes (%) (Auto) 28.6 % (20.0-45.0) Monocytes (%) (Auto) 12.9 % (1.0-10.0) H Eosinophils (%) (Auto) 2.0 % (0.0-3.0) Basophils (%) (Auto) 0.6 % (0.0-2.0) Prothrombin Time 11.8 SEC (9.30-11.50) H Prothromb Time International Ratio 1.1 (0.9-1.1) Activated Partial Thromboplast Time 36 SEC (23-33) H Sodium Level 140 MMOL/L (136-145) Potassium Level 4.0 MMOL/L (3.5-5.1) Chloride Level 103 MMOL/L (98-107) Carbon Dioxide Level 23 MMOL/L (21-32) Anion Gap 14 mmol/L (5-15) Blood Urea Nitrogen 9 mg/dL (7-18) Creatinine 2.6 MG/DL (0.55-1.30) H Estimat Glomerular Filtration Rate 30.2 mL/min (>60) Glucose Level 202 MG/DL (74-106) H Lactic Acid Level 3.90 mmol/L (0.4-2.0) H 1.20 mmol/L (0.66-2.22) Calcium Level 8.2 MG/DL (8.5-10.1) L Total Bilirubin 0.7 MG/DL (0.2-1.0) Aspartate Amino Transf (AST/SGOT) 113 U/L (15-37) H Alanine Aminotransferase (ALT/SGPT) 49 U/L (12-78) Alkaline Phosphatase 61 U/L (46-116) Total Creatine Kinase 386 U/L (26-308) H Troponin I 0.030 ng/mL (0.000-0.056) Pending Pro-B-Type Natriuretic Peptide 98 pg/mL (0-125) Total Protein 6.9 G/DL (6.4-8.2) Albumin 2.7 G/DL (3.4-5.0) L Globulin 4.2 g/dL Albumin/Globulin Ratio 0.6 (1.0-2.7) L Lipase 60 U/L (73-393) L Thyroid Stimulating Hormone (TSH) 18.633 uiU/mL (0.358-3.740) Urine Color Pale yellow Urine Appearance Clear Urine pH 7 (4.5-8.0) Urine Specific [place] 1.010 (1.005-1.035) Urine Protein Negative (NEGATIVE) Urine Glucose (UA) Negative (NEGATIVE) Urine Ketones Negative (NEGATIVE) Urine Blood Negative (NEGATIVE) Urine Nitrite Negative (NEGATIVE) Urine Bilirubin Negative (NEGATIVE) Urine Urobilinogen Normal MG/DL (0.0-1.0) Urine Leukocyte Esterase Negative (NEGATIVE) Urine Opiates Screen Negative (NEGATIVE) Urine Barbiturates Screen Negative (NEGATIVE) Phencyclidine (PCP) Screen Negative (NEGATIVE) Urine Amphetamines Screen Negative (NEGATIVE) Urine Benzodiazepines Screen Negative (NEGATIVE) Urine Cocaine Screen Negative (NEGATIVE) Urine Marijuana (THC) Screen Negative (NEGATIVE) Height (Feet): 6 Height (Inches): 0.00 Weight (Pounds): 193 Medications Current Medications Medications (Trade) Dose Ordered Sig/Tom Route PRN Reason Start Time Stop Time Status Last Admin Dose Admin Albuterol Sulfate (Proventil MDI) 2 puff Q12HR INH 03/31/19 21:00 04/30/19 20:59 Albuterol/ Ipratropium (Albuterol/ Ipratropium) 3 ml Q4H PRN HHN Shortness of Breath 03/31/19 16:45 04/05/19 16:44 Amantadine HCl (Symmetrel) 100 mg DAILY ORAL 04/01/19 09:00 05/01/19 08:59 Aspirin (ASA) 81 mg DAILY ORAL 04/01/19 09:00 05/01/19 08:59 Atorvastatin Calcium (Lipitor) 80 mg BEDTIME ORAL 03/31/19 21:00 04/30/19 20:59 Carbidopa/Levodopa (Sinemet 25/100) 1 tab THREE TIMES A DAY ORAL 03/31/19 18:00 04/30/19 17:59 03/31/19 18:10 Dextrose (Dextrose 50%) 25 ml Q30M PRN IV Hypoglycemia 03/31/19 16:45 04/30/19 16:44 Dextrose (Dextrose 50%) 25 ml Q30M PRN IV Hypoglycemia 03/31/19 18:45 04/30/19 18:44 Dextrose (Dextrose 50%) 50 ml Q30M PRN IV Hypoglycemia 03/31/19 16:45 04/30/19 16:44 Dextrose (Dextrose 50%) 50 ml Q30M PRN IV Hypoglycemia 03/31/19 18:45 04/30/19 18:44 Docusate Sodium (Colace) 100 mg EVERY 12 HOURS ORAL 03/31/19 21:00 04/30/19 20:59 Famotidine (Pepcid) 40 mg DAILY ORAL 04/01/19 09:00 05/01/19 08:59 Gabapentin (Neurontin) 600 mg THREE TIMES A DAY ORAL 03/31/19 18:00 04/30/19 17:59 03/31/19 18:10 Insulin Aspart (NovoLOG) BEFORE MEALS AND HS SUBQ 03/31/19 21:00 04/30/19 20:59 Lorazepam (Ativan 2mg/ml 1ml) 0.5 mg Q4H PRN IV For Anxiety 03/31/19 16:45 04/07/19 16:44 Morphine Sulfate (Morphine Sulfate) 2 mg Q4H PRN IVP Moderate Pain (Pain Scale 4-6) 03/31/19 16:45 04/07/19 16:44 Nitroglycerin (Ntg) 0.4 mg Q5MIN X 3 DOSES PRN SL CHEST PAIN 03/31/19 16:45 04/30/19 16:44 Ondansetron HCl (Zofran) 4 mg Q6H PRN IVP Nausea & Vomiting 03/31/19 16:45 04/30/19 16:44 Polyethylene Glycol (Miralax) 17 gm DAILYPRN PRN ORAL Constipation 03/31/19 16:45 04/30/19 16:44 Sodium Chloride 1,000 ml @ 75 mls/hr [id number] IV 03/31/19 17:36 04/30/19 17:35 03/31/19 18:10 Tamsulosin HCl (Flomax) 0.8 mg BEDTIME ORAL 03/31/19 21:00 04/30/19 20:59 Assessment/Plan Status: stable Assessment/Plan: 63 y/o male admitted to the Hospital with: # Witnessed syncope - Etiology include dehydration vs orthostatic hypotension vs underlying cardiac etiology - Admit to TRAY with threat monitoring analyst - Orthostatic vital signs q 6 hr - TTE for EF and structural review. - Troponin follow up tonight - Cardiology consult called to Dr. Lozano - If any new syncope occurs, repeat EKG and cadiac enzyme follow up. # Acute vs acute on chronic renal failure - Etiology include pre renal due to dehydration vs medication induced. - STOP Metformin and Lisinopril pending response in renal function - Renal US, urine Cr and Na ordered - Renal consultation requested with Dr. Pugh - Trend renal function. Currently GRF is 30 ( CKD 3/4) - IVF at 75 cc hr with 1/2 NS and will discuss with nephrology next steps in therapy - Avoid nephrotoxins # Abnormal CXR with LL lobe atelectasis vs infiltrate - No signs of acute pneumonia without cough, sputum, leukocytosis or fever. - Monitor and HOLD antibiotics for now - Lactate was elevated on admission 3.9 and repeat was 2 - most likely due to syncopal event. - Add Procalcitonin which is very sensitive for pneumonia # Abnormal TSH level - T3 and T4 ordered - Will need to repeat TSH in the non acute setting. # Bifascicular EKG block with NSR LAFB and RBBB - Cardiology consulted - Telemetry - Trend K and Mag level in am # Mild Rhabdomyolysis - CK 386 - Trend CK in am post IVF # Recent admission at [facility] with EGD and Colonoscopy done (unknown results) - Try to obtain records with # Generalized weakness - PT evaluation in AM # HTN - Hold lisinopril and metoprolol for now due to syncope and low blood pressure. - Monitor and discuss with cardiology next steps. # Constipation _ Bowel regimen #CAD - S/p PCI and stents in 06/[address] Henriquez. - Apixiban therapy in place, likely for TD - Follow up cardiology consult # HLD - Statin # DVT ppx - Adjusted Apixiban to 2.5 mg BID renal dose # GI ppx - PPI # FULL CODE Angie Tello MD Mar 31, 2019 19:23
--- NOTE | 2019-03-31 19:30 | NUR ---
HAND-OFF: Report given to JOLLY Mccarty.
--- NOTE | 2019-03-31 19:31 | NUR ---
NURSE NOTES: Received patient from Reji AZEVEDO. Patient is awake, alert and oriented x4. Patient is resting comfortably in bed, able to make needs known. Receiving oxygen on room air, no signs of respiratory distress. IV site is left AC 20g receiving 1/2 NS at 75cc/hr. Bed is locked, placed in lowest position, side rails up x2, call light within reach, head of bed elevated.
[2019-03-31] MEDS: Albuterol 90mcg Inhaler 8gm INH SCH (20:27)
[2019-03-31] MEDS: Docusate 100mg cap ORAL SCH (20:30)
[2019-03-31] MEDS: NovoLOG Insulin Flexpen SUBQ SCH (20:32)
[2019-03-31] MEDS ORDERED: Atorvastatin 80mg tab ORAL SCH (21:00)
[2019-03-31] MEDS ORDERED: Tamsulosin 0.4mg cap ORAL SCH (21:00)
[2019-04-01] VITALS: BP 104/60
--- NOTE | 2019-04-01 | NUR ---
NURSE NOTES: Assessed patient's orthostatic blood pressure. Laying supine BP 107/75, Sitting 123/59, Standing 101/68. Will continue to monitor patient.
[2019-04-01 04:00] VITALS: BP 111/79
[2019-04-01] MEDS: NovoLOG Insulin Flexpen SUBQ SCH ×4 (06:31→21:42)
--- NOTE | 2019-04-01 07:01 | NUR ---
HAND-OFF: Report given to Reji AZEVEDO.
--- NOTE | 2019-04-01 07:24 | NUR ---
NURSE NOTES: Received report from JOLLY Mccarty. Patient is resting in bed, in stable condition. No s/sx of SOB, breathing is even and unlabored. Patient is on room air. Patient is noted high risk of falls, patient is on yellow gown and yellow nonskid socks. Informed patient that bed alarm must be on at all times for safety. Patient refused, explained to patient safety measures of bed alarm, patient is alert and oriented x4, patient verbalized understanding and continued to refuse bed alarm. Respected patient rights. Informed charge nurse. Bed is in lowest position, brakes engaged. Call light is kept within easy reach. Will continue to monitor patient.
[2019-04-01 08:00] VITALS: BP 114/65
[2019-04-01] MEDS ORDERED: Aspirin Baby 81mg ORAL SCH (09:00)
[2019-04-01] MEDS ORDERED: Amantadine 100mg cap ORAL SCH (09:00)
[2019-04-01 09:11] LABS: ANION GAP 15 mmol/L (5-15); BLOOD UREA NITROGEN 9 mg/dL (7-18); CARBON DIOXIDE 22 MMOL/L (21-32); CHLORIDE 102 MMOL/L (98-107); CREATININE 1.3 MG/DL (0.55-1.30); POTASSIUM 4.5 MMOL/L (3.5-5.1); SODIUM 139 MMOL/L (136-145)
[2019-04-01 09:21] LABS: ALANINE AMINOTRANSFERASE 66 U/L (12-78); ALBUMIN 2.7 G/DL (3.4-5.0); ALBUMIN/GLOBULIN RATIO 0.6 (1.0-2.7); ALKALINE PHOSPHATASE 64 U/L (46-116); ASPARTATE AMINO TRANSFERASE 91 U/L (15-37); BILIRUBIN,TOTAL 0.7 MG/DL (0.2-1.0); PHOSPHORUS 3.8 MG/DL (2.5-4.9)
[2019-04-01] MEDS: Albuterol 90mcg Inhaler 8gm INH SCH ×2 (09:33→21:34)
[2019-04-01] MEDS: Levodopa/Carbidopa 25/100 tab ORAL SCH ×3 (09:49→16:59)
[2019-04-01] MEDS: Docusate 100mg cap ORAL SCH ×2 (09:49→21:25)
[2019-04-01 09:51] LABS: CHOLESTEROL 90 MG/DL (< 200); CREATINE KINASE 357 U/L (26-308); GAMMA GLUTAMYL TRANSPEPTIDASE 245 U/L (5-85); HDL CHOLESTEROL 28 MG/DL (40-60); TRIGLYCERIDES 75 MG/DL (30-150)
[2019-04-01 09:54] LABS: BASOPHILS % (AUTO) 0.3 % (0.0-2.0); HEMATOCRIT 32.2 % (42.0-52.0); HEMOGLOBIN 10.4 G/DL (14.2-18.0); LYMPHOCYTES % (AUTO) 19.3 % (20.0-45.0); MEAN CORPUSCULAR VOLUME 80 FL (80-99); MONOCYTES % (AUTO) 6.2 % (1.0-10.0); NEUTROPHILS % (AUTO) 74.2 % (45.0-75.0); PLATELET COUNT 321 K/UL (150-450); RED BLOOD COUNT 4.02 M/UL (4.70-6.10); RED CELL DISTRIBUTION WIDTH 16.3 % (11.6-14.8); WHITE BLOOD COUNT 3.9 K/UL (4.8-10.8)
--- NOTE | 2019-04-01 10:28 | NUR ---
NURSE NOTES: Dr. Tello seen and examined patient at bedside. Inquired MD if okay to transfer to telemetry, Dr. Tello acknowledged and ordered to transfer to Telemetry. Order entered, noted, and carried out. Also per Dr. Tello will enter Eliquis and theophylline orders himself noted. Will continue to monitor patient.
[2019-04-01] MEDS ORDERED: Theophylline ER 100mg ORAL SCH (10:45)
--- NOTE | 2019-04-01 10:47 | General Progress Note ---
Assessment/Plan Status: stable Assessment/Plan: 63 y/o male admitted to the Hospital with: # Witnessed syncope - Etiology include dehydration vs orthostatic hypotension vs underlying cardiac etiology - Admitted to [facility]RAY with product safety head - Orthostatic vital signs q 6 hr are stable - TTE for EF and structural review. PENDING report. - Troponin follow up negative. no need to check more. - Cardiology consult called to Dr. Lozano - If any new syncope occurs, repeat EKG and cadiac enzyme follow up noted. # Acute vs acute on chronic renal failure - Etiology include pre renal due to dehydration vs medication induced. - STOP Metformin and Lisinopril pending response in renal function - Renal US, urine Cr and Na ordered - Renal consultation requested with Dr. Pugh - Trend renal function. Currently GRF is 30 ( CKD 3/4) and NOW improved after IVF, Creatinine is 1.3 today. - IVF at 75 cc hr with 1/2 NS and will discuss with nephrology next steps in therapy - Avoid nephrotoxins # Abnormal CXR with LL lobe atelectasis vs infiltrate - No signs of acute pneumonia without cough, sputum, leukocytosis or fever. - Monitor and HOLD antibiotics for now - Lactate was elevated on admission 3.9 and repeat was 2 - most likely due to syncopal event. - Add Procalcitonin which is very sensitive for pneumonia # Abnormal TSH level - T3 and T4 ordered and stable. Suspect stress response. - Will need to repeat TSH in the non acute setting. 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 - Monitor and discuss with cardiology next steps. # Constipation _ Bowel regimen #CAD - S/p PCI and stents in 06/[address] Henriquez. - Apixiban therapy in place, likely for TD - Follow up cardiology consult # HLD - Statin # DVT ppx - Apixiban therapy. will continue at 5 mg BID since renal function improved after IVF # GI ppx - PPI # FULL CODE Subjective ROS Limited/Unobtainable: No Allergies: Coded Allergies: SHARK LIVER OIL (Unverified Allergy, Unknown, 12/27/15) Uncoded Allergies: SHARK (Allergy, Mild, RASH, 09/01/15) Subjective Feels better today, able to ambulate to the restroom, denies dizzyness, chest pain, shortness of breath, nausea or emesis. Good urine output. Objective Last 24 Hour Vital Signs Date Time Temp Pulse Resp B/P (MAP) Pulse Ox O2 Delivery O2 Flow Rate FiO2 04/01/19 09:33 87 18 98 Room Air 21 04/01/19 09:33 87 16 98 Room Air 21 04/01/19 09:20 87 04/01/19 08:00 97.2 87 20 114/65 (81) 96 04/01/19 08:00 Room Air 04/01/19 04:00 98.2 80 20 111/79 (90) 98 04/01/19 04:00 Room Air 04/01/19 03:52 76 04/01/19 00:00 76 04/01/19 00:00 97.9 74 20 104/60 (75) 98 04/01/19 00:00 Room Air 03/31/19 20:38 85 18 98 Room Air 21 03/31/19 20:34 83 16 98 Room Air 21 03/31/19 20:00 Room Air 03/31/19 20:00 98.2 84 20 105/63 (77) 95 03/31/19 19:16 88 03/31/19 16:00 97.7 79 18 103/55 (71) 93 03/31/19 15:59 Room Air 03/31/19 15:47 79 03/31/19 14:54 79 18 107/66 100 Room Air 03/31/19 14:25 79 20 89/57 96 Room Air 03/31/19 13:40 78 18 83/50 100 Nasal Cannula 2.0 03/31/19 12:55 98.2 77 16 75/44 99 Nasal Cannula 2.0 03/31/19 12:11 97.8 78 16 67/36 93 Room Air 03/31/19 12:11 98.2 72 16 129/82 (98) 99 Room Air Intake and Output 03/31/19 04/01/19 19:00 07:00 Intake Total 1122.5 ml 300 ml Output Total 800 ml Balance 322.5 ml 300 ml Intake Oral 60 ml IV Total 1062.5 ml 300 ml Output Urine Total 800 ml # Bowel Movements 2 Laboratory Tests 03/31/19 12:10: White Blood Count 5.3, Red Blood Count 4.27L, Hemoglobin 10.7L, Hematocrit 34.6L , Mean Corpuscular Volume 81, Mean Corpuscular Hemoglobin 25.2L, Mean Corpuscular Hemoglobin Concent 31.0L, Red Cell Distribution Width 16.0H, Platelet Count 323, Mean Platelet Volume 5.8L, Neutrophils (%) (Auto) 55.9, Lymphocytes (%) (Auto) 28.6, Monocytes (%) (Auto) 12.9H, Eosinophils (%) (Auto) 2.0, Basophils (%) (Auto) 0.6, Prothrombin Time 11.8H, Prothromb Time International Ratio 1.1, Activated Partial Thromboplast Time 36H, Sodium Level 140, Potassium Level 4.0, Chloride Level 103, Carbon Dioxide Level 23, Anion Gap 14, Blood Urea Nitrogen 9, Creatinine 2.6H, Estimat Glomerular Filtration Rate 30.2, Glucose Level 202H, Lactic Acid Level 3.90H, Calcium Level 8.2L, Total Bilirubin 0.7, Aspartate Amino Transf (AST/SGOT) 113H, Alanine Aminotransferase (ALT/SGPT) 49, Alkaline Phosphatase 61, Total Creatine Kinase 386H, Troponin I 0.030, Pro-B-Type Natriuretic Peptide 98, Total Protein 6.9, Albumin 2.7L, Globulin 4.2, Albumin/Globulin Ratio 0.6L, Lipase 60L, Thyroid Stimulating Hormone (TSH) 18.633H 03/31/19 13:10: Urine Color Pale yellow, Urine Appearance Clear, Urine pH 7, Urine Specific [place] 1.010, Urine Protein Negative, Urine Glucose (UA) Negative, Urine Ketones Negative, Urine Blood Negative, Urine Nitrite Negative, Urine Bilirubin Negative, Urine Urobilinogen Normal, Urine Leukocyte Esterase Negative, Urine Opiates Screen Negative, Urine Barbiturates Screen Negative, Phencyclidine (PCP ) Screen Negative, Urine Amphetamines Screen Negative, Urine Benzodiazepines Screen Negative, Urine Cocaine Screen Negative, Urine Marijuana (THC) Screen Negative 03/31/19 13:55: Lactic Acid Level 1.20 03/31/19 18:45: Troponin I 0.013 03/31/19 19:00: Urine Random Sodium 98, Urine Creatinine 24.6L 04/01/19 04:00: White Blood Count 3.9L, Red Blood Count 4.02L, Hemoglobin 10.4L, Hematocrit 32.2L, Mean Corpuscular Volume 80, Mean Corpuscular Hemoglobin 25.8L, Mean Corpuscular Hemoglobin Concent 32.3, Red Cell Distribution Width 16.3H, Platelet Count 321, Mean Platelet Volume 5.6L, Neutrophils (%) (Auto) 74.2, Lymphocytes (%) (Auto) 19.3L, Monocytes (%) (Auto) 6.2, Eosinophils (%) (Auto) 0.0, Basophils (%) (Auto) 0.3, Sodium Level 139, Potassium Level 4.5, Chloride Level 102, Carbon Dioxide Level 22, Anion Gap 15, Blood Urea Nitrogen 9, Creatinine 1.3, Estimat Glomerular Filtration Rate > 60, Glucose Level 187H, Hemoglobin A1c 11.8H, Uric Acid 6.3, Calcium Level 8.0L, Phosphorus Level 3.8, Magnesium Level 1.5L, Total Bilirubin 0.7, Gamma Glutamyl Transpeptidase 245H, Aspartate Amino Transf (AST/SGOT) 91H, Alanine Aminotransferase (ALT/SGPT) 66, Alkaline Phosphatase 64, Total Creatine Kinase 357H, Total Protein 7.3, Albumin 2.7L, Globulin 4.6, Albumin/Globulin Ratio 0.6L, Triglycerides Level 75, Cholesterol Level 90, LDL Cholesterol 49, HDL Cholesterol 28L, Cholesterol/HDL Ratio 3.2L, Free Thyroxine 1.20, Triiodothyonine (T3) [Pending], Free Triiodothyronine 2.2L, Cortisol AM Sample [Pending] Height (Feet): 6 Height (Inches): 0.00 Weight (Pounds): 193 General Appearance: WD/WN, no apparent distress Neck: non-tender Cardiovascular: normal rate, regular rhythm Respiratory/Chest: lungs clear, normal breath sounds, no respiratory distress Abdomen: non tender 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
[2019-04-01] MEDS: Eliquis 5mg tablet ORAL SCH ×2 (10:54→17:02)
[2019-04-01 12:00] VITALS: BP 111/73
--- NOTE | 2019-04-01 14:46 | Consultation ---
Consult Note Consult Note asked to eval by Dr Tello for elevated serum Cr Patient recently discharged from the hospital a few days ago. He was at a store and was walking to a bus stop and passed out. Paramedics were called for the syncope. animal care attendant had a blood pressure of 90 when he was sitting up. The patient was stood up to transfer to a different gurney and he passed out a second time. He complains of being thirsty. He denies any pain anyplace in his body. Is been no nausea, vomiting, diarrhea or dysuria. Paramedics gave the patient a bolus of 400 normal saline area his blood pressure was somewhat better after this but he still is somewhat altered. Paramedics performed a 12- lead which revealed normal sinus rhythm without injury. Patient has a history of stents. Insulin-dependent diabetic. Coded Allergies: SHARK LIVER OIL (Unverified Allergy, Unknown, 12/27/15) Uncoded Allergies: SHARK (Allergy, Mild, RASH, 09/01/15) Hx Cardiac Problems: Yes Hx Asthma: Yes Hx COPD: Yes Hx Diabetes: Yes Hx Gastrointestinal Problems: Yes - IBS examined data reviewed discussed with Dr Tello Assessment/Plan Acute renal failure- Cr 2.6 on presentation now normalized Syncope HypoThyroidism mild Anemia Parkinsons DM OOC COPD Depression HTN CAD LL Atx vs Infilt monitor renal parameters slow hydrate anemia thompson optimize cardiac and pulmonary status per orders / Consultants Joel Rogers MD Apr 01, 2019 14:46
--- NOTE | 2019-04-01 15:32 | NUR ---
PT Note PT james completed, tx initiated. Patient has muscle weakness and decreased postural stability with postural sway throughout gait training. Patient's BP was 137/85 in sitting; after gait training, BP was 119/77 in supine position. RN was notified. Patient denies any pain. Patient needs PT to increase his muscle strength and balance to improve his safety in mobility and gait. Addendum: 04/01/19 at 1532 by LAMAR STRAUSS PT Amended: Links added.
[2019-04-01 16:00] VITALS: BP 102/64
[2019-04-01] MEDS ORDERED: 1/2 NS 1000ml IV ONE ×3 (16:10→16:23)
[2019-04-01] MEDS ORDERED: Tubing IV Secondary IV ONE ×2 (16:11→16:23)
--- NOTE | 2019-04-01 16:18 | Cardiology Report ---
APPROVED REPORT EKG Measurement Heart [id number] Normal sinus rhythm Right bundle branch block Left anterior fascicular block Bifascicular block Moderate voltage criteria for LVH, may be normal variant Cannot rule out Septal infarct, age undetermined Abnormal ECG
--- NOTE | 2019-04-01 16:32 | Cardiac Electrophysiology PN ---
Subjective Subjective [id number] Objective Last 24 Hour Vital Signs Date Time Temp Pulse Resp B/P (MAP) Pulse Ox O2 Delivery O2 Flow Rate FiO2 04/01/19 13:02 87 04/01/19 12:00 87 91 98 04/01/19 12:00 Room Air 04/01/19 12:00 98.0 88 20 111/73 (86) 93 04/01/19 09:33 87 18 98 Room Air 21 04/01/19 09:33 87 16 98 Room Air 21 04/01/19 09:20 87 04/01/19 08:00 97.2 87 20 114/65 (81) 96 04/01/19 08:00 Room Air 04/01/19 04:00 98.2 80 20 111/79 (90) 98 04/01/19 04:00 Room Air 04/01/19 03:52 76 04/01/19 00:00 76 04/01/19 00:00 97.9 74 20 104/60 (75) 98 04/01/19 00:00 Room Air 03/31/19 20:38 85 18 98 Room Air 21 03/31/19 20:34 83 16 98 Room Air 21 03/31/19 20:00 Room Air 03/31/19 20:00 98.2 84 20 105/63 (77) 95 03/31/19 19:16 88 Intake and Output 03/31/19 04/01/19 18:59 06:59 Intake Total 1060 ml 362.5 ml Output Total 800 ml Balance 260 ml 362.5 ml Intake Oral 60 ml IV Total 1000 ml 362.5 ml Output Urine Total 800 ml # Bowel Movements 2 Laboratory Tests Test 03/31/19 18:45 03/31/19 19:00 04/01/19 04:00 Troponin I 0.013 ng/mL (0.000-0.056) Urine Random Sodium 98 mmol/L (20-110) Urine Creatinine 24.6 MG/DL (30.0-125.0) L White Blood Count 3.9 K/UL (4.8-10.8) L Red Blood Count 4.02 M/UL (4.70-6.10) L Hemoglobin 10.4 G/DL (14.2-18.0) L Hematocrit 32.2 % (42.0-52.0) L Mean Corpuscular Volume 80 FL (80-99) Mean Corpuscular Hemoglobin 25.8 PG (27.0-31.0) L Mean Corpuscular Hemoglobin Concent 32.3 G/DL (32.0-36.0) Red Cell Distribution Width 16.3 % (11.6-14.8) H Platelet Count 321 K/UL (150-450) Mean Platelet Volume 5.6 FL (6.5-10.1) L Neutrophils (%) (Auto) 74.2 % (45.0-75.0) Lymphocytes (%) (Auto) 19.3 % (20.0-45.0) L Monocytes (%) (Auto) 6.2 % (1.0-10.0) Eosinophils (%) (Auto) 0.0 % (0.0-3.0) Basophils (%) (Auto) 0.3 % (0.0-2.0) Sodium Level 139 MMOL/L (136-145) Potassium Level 4.5 MMOL/L (3.5-5.1) Chloride Level 102 MMOL/L (98-107) Carbon Dioxide Level 22 MMOL/L (21-32) Anion Gap 15 mmol/L (5-15) Blood Urea Nitrogen 9 mg/dL (7-18) Creatinine 1.3 MG/DL (0.55-1.30) Estimat Glomerular Filtration Rate > 60 mL/min (>60) Glucose Level 187 MG/DL (74-106) H Hemoglobin A1c 11.8 % (4.3-6.0) H Uric Acid 6.3 MG/DL (2.6-7.2) Calcium Level 8.0 MG/DL (8.5-10.1) L Phosphorus Level 3.8 MG/DL (2.5-4.9) Magnesium Level 1.5 MG/DL (1.8-2.4) L Total Bilirubin 0.7 MG/DL (0.2-1.0) Gamma Glutamyl Transpeptidase 245 U/L (5-85) H Aspartate Amino Transf (AST/SGOT) 91 U/L (15-37) H Alanine Aminotransferase (ALT/SGPT) 66 U/L (12-78) Alkaline Phosphatase 64 U/L (46-116) Total Creatine Kinase 357 U/L (26-308) H Total Protein 7.3 G/DL (6.4-8.2) Albumin 2.7 G/DL (3.4-5.0) L Globulin 4.6 g/dL Albumin/Globulin Ratio 0.6 (1.0-2.7) L Triglycerides Level 75 MG/DL (30-150) Cholesterol Level 90 MG/DL (< 200) LDL Cholesterol 49 mg/dL (<100) HDL Cholesterol 28 MG/DL (40-60) L Cholesterol/HDL Ratio 3.2 (3.3-4.4) L Free Thyroxine 1.20 NG/DL (0.76-1.46) Triiodothyonine (T3) Pending Free Triiodothyronine 2.2 pg/mL (2.3-4.2) L Cortisol AM Sample Pending Alexandr Lozano MD Apr 01, 2019 16:32
--- NOTE | 2019-04-01 16:42 | NUR ---
NURSE NOTES: Noted Dr. Lozano ordered lexiscan cardiac stress test for patient. Patient is noted with history of Asthma and has taken albuterol inhaler this morning. Dr. Lozano acknowledged and stated orders is entered for either lexiscan or dobutamine and will defer to cardiology department for which test to do. Noted. Will continue to monitor patient.
[2019-04-01] MEDS ORDERED: Lexiscan 0.4mg/5ml syringe IV PRN ×2 (16:45→18:00)
--- NOTE | 2019-04-01 17:51 | NUR ---
TRANSFER TO FLOOR: Patient transferred to [facility] RM 203-1 , per Dr. Tello. Report given to JOLLY Damico. Belongings and medications given JOLLY Damico Patient's monies counted at bedside for a total of $500. Family informed of transfer.
--- NOTE | 2019-04-01 17:52 | NUR ---
NURSE NOTES: Received report from JOLLY Mendoza @ [facility]. The patient got safely transferred to [facility] @ -. The patient denies of acute distress or shortness of breath. The patient's bed in the lowest position, call light in reach, and fall and aspiration precaution reinforced. Two IV sites are intact and patent. The patient's belongings checked including $500 colvin in wallet checked with two nurses and signed by two nurse. The patient is scheduled for stress test tomorrow and contraindication for Viviane scan discussed with Dr. Lozano and JOLLY Mendoza. The patient's skin is intact. In short, the patient got safely transferred to 203-1 in stable condition without acute distress or shortness of breath. Will continue plan of care.
[2019-04-01] MEDS ORDERED: Nitroglycerin Subl 0.4mg tab SL PRN (18:00)
[2019-04-01] MEDS ORDERED: Miralax 17gm pkt ORAL PRN (18:00)
[2019-04-01] MEDS ORDERED: Morphine Sulfate 2mg/ml Inj(IV/IM USE ONLY) IVP PRN (18:00)
[2019-04-01] MEDS ORDERED: LORazepam Inj 2mg/ml 1ml IV PRN (18:00)
[2019-04-01] MEDS ORDERED: Eliquis 5mg tablet ORAL SCH (18:00)
[2019-04-01] MEDS ORDERED: Levodopa/Carbidopa 25/100 tab ORAL SCH (18:00)
--- NOTE | 2019-04-01 19:20 | NUR ---
HAND-OFF: Report given to JOLLY Marinelli. The patient is resting on the bed without acute distress or shortness of breath. The patient's bed in the lowest position, call light in reach, and fall and aspiration precaution reinforced. IV sites are intact and patent. Education given regarding NPO since midnight for stress test. Endorsed plan of care.
--- NOTE | 2019-04-01 19:47 | NUR ---
NURSE NOTES: Received patient from JOLLY Damico , patient in stable condition, AOx4, laying in bed, resting, able to ambulate, denies pain at this time, Iv on left AC g20, asymptomatic, intact, patent, bed low&locked, call light within reach, side rails upx2, will continue to monitor and reassess.
[2019-04-01 20:00] VITALS: BP 118/70
[2019-04-01] MEDS: Atorvastatin 80mg tab ORAL SCH (21:22)
[2019-04-01] MEDS: Theophylline ER 100mg ORAL SCH (21:24)
[2019-04-01] MEDS: Tamsulosin 0.4mg cap ORAL SCH (21:25)
--- NOTE | 2019-04-01 22:30 | Consultation ---
DATE OF CONSULTATION: 04/01/2019 CARDIOLOGY CONSULTATION CONSULTING PHYSICIAN: Alexandr Lozano M.D. REFERRING PHYSICIAN: Rupali Jeter M.D. REASON FOR CONSULTATION: Management of hypertension and syncope in a patient with coronary artery disease and atrial fibrillation. HISTORY OF PRESENT ILLNESS: The patient is a 63-year-old gentleman with history of hypertension, diabetes, and coronary artery disease with history of stent placement at [facility] by in May 2018. The patient also has paroxysmal atrial fibrillation and has been on anticoagulation by Eliquis 5 mg b.i.d. The patient was recently discharged from [facility] a few days ago after he had EGD and colonoscopy. He was at the store today and was walking to bus stop and then he passed out. Paramedics were called, and the blood pressure was 90 when he was sitting. The patient stood up and transferred to the [facility] and then he passed out the second time. The patient received 400 mL of normal saline and blood pressure was in the 90s. The 12-lead EKG by paramedics shows sinus rhythm with no acute injury pattern. The patient's creatinine was noted to be 2.6 and was admitted, and Cardiology consultation was obtained for further evaluation. EKG shows sinus rhythm with right bundle-branch block and left anterior fascicular block. REVIEW OF SYSTEMS: Review of systems was negative other than what was mentioned in the history of present illness. PAST MEDICAL HISTORY: As mentioned above. FAMILY HISTORY: Noncontributory. SOCIAL HISTORY: He lives at home. Does not smoke or drink alcohol. PHYSICAL EXAMINATION: VITAL SIGNS: Blood pressure is 111/73, pulse is 95, respirations 18, and he is afebrile. HEAD AND NECK: Shows no JVD. LUNGS: Clear. CARDIOVASCULAR: Shows regular S1 and S2 with no gallop or murmur. ABDOMEN: Soft. EXTREMITIES: No pitting edema. LABORATORY AND DIAGNOSTIC DATA: His EKG showed sinus rhythm with bifascicular block, right bundle-branch block, and left anterior fascicular block. His echocardiogram showed ejection fraction of 60%. His laboratories show white count 3.9, hematocrit 10.4, hematocrit of 32, and platelet count of 321,000. Sodium 139, potassium 4.5, BUN of 9, and creatinine 1.3, and glucose of 187. His CK was 357. His troponin was negative x2. ASSESSMENT AND PLAN: 1. Syncopal episode. The patient is already ruled out for myocardial infarction with serial cardiac enzymes. His urine is not clear. The electrolytes are not suggestive of dehydration. We will watch the patient on telemetry. The patient may need electrophysiologic study for further evaluation of his syncopal episode. 2. Coronary artery disease with history of prior stent in May 2018. The patient currently denies any chest pain. Continue aspirin and Lipitor. The patient is off antihypertensive agents as blood pressure was in the 90s initially and received IV fluid. 3. Paroxysmal atrial fibrillation, currently in sinus rhythm on Eliquis 5 mg b.i.d. Off any antiarrhythmics. 4. Bifascicular block with right bundle-branch block and left anterior fascicular block. 5. Parkinson's, on Sinemet. 6. Hyperlipidemia. 7. Mild rhabdomyolysis. The patient received IV fluid. 8. Renal failure. Creatinine was 2.6, but followup creatinine has been 1.3 and normal. Thank you very much, Dr. Jeter, for allowing me to participate in the care of this patient. Please do not hesitate to contact me for any questions regarding my evaluation. Sincerely, Alexandr Lozano M.D. DR: KARMA JOB#: [id number] CC:
--- NOTE | 2019-04-01 23:29 | NUR ---
NURSE NOTES: Received patient's cortisol AM result from [facility], Dr. Jeter made aware, awaiting call back
--- NOTE | 2019-04-01 23:36 | NUR ---
NURSE NOTES: aware no new orders at this time
[2019-04-02] VITALS (7 sets, daily range): BP systolic 94–114; BP diastolic 52–78
[2019-04-02] MEDS: NovoLOG Insulin Flexpen SUBQ SCH ×4 (06:47→21:34)
--- NOTE | 2019-04-02 07:10 | NUR ---
NURSE NOTES: Received report from JOLLY Marinelli. The patient is resting on the bed without acute distress or shortness of breath. The patient's bed in the lowest position, call light in reach, and fall and aspiration precaution reinforced. IV sites are intact and patent. The patient is scheduled for dobutamine stress test since the patient has contraindication to Viviane scan due to active history of asthma on Albuterol and Theophyline and SBP<100. Per Dr. Lozano, hold Albuterol breathing treatment and Theophyline prior to the Dobutamine test today. Dr. Lozano and Dr. Cadena was notified regarding ST and PACs. Will continue plan of care.
[2019-04-02 07:44] LABS: ALANINE AMINOTRANSFERASE 70 U/L (12-78); ALBUMIN 2.7 G/DL (3.4-5.0); ALBUMIN/GLOBULIN RATIO 0.7 (1.0-2.7); ALKALINE PHOSPHATASE 65 U/L (46-116); ANION GAP 10 mmol/L (5-15); ASPARTATE AMINO TRANSFERASE 87 U/L (15-37); BILIRUBIN,TOTAL 0.3 MG/DL (0.2-1.0); BLOOD UREA NITROGEN 8 mg/dL (7-18); CALCIUM 7.6 MG/DL (8.5-10.1); CARBON DIOXIDE 28 MMOL/L (21-32); CHLORIDE 109 MMOL/L (98-107); CREATININE 1.2 MG/DL (0.55-1.30); FERRITIN 270 NG/ML (8-388); PHOSPHORUS 2.5 MG/DL (2.5-4.9); POTASSIUM 4.2 MMOL/L (3.5-5.1); SODIUM 146 MMOL/L (136-145)
--- NOTE | 2019-04-02 07:46 | NUR ---
HAND-OFF: Report given to JOLLY Damico, patient in stable condition, plan of care endorsed.
[2019-04-02 07:58] LABS: % IRON SATURATION 40 % (15-50); IRON 122 ug/dL (50-175); TOTAL IRON BINDING CAPACITY 306 ug/dL (250-450)
--- NOTE | 2019-04-02 08:00 | General Progress Note ---
Assessment/Plan Problem List: (1) Syncope ICD Codes: R55 - Syncope and collapse SNOMED: 210754078 Qualifiers: Qualified Codes: R55 - Syncope and collapse (2) Anemia ICD Codes: D64.9 - Anemia, unspecified SNOMED: 494484923 (3) Atrial fibrillation ICD Codes: I48.91 - Unspecified atrial fibrillation SNOMED: 45406261 (4) Uncontrolled diabetes mellitus with hyperglycemia ICD Codes: E11.65 - Type 2 diabetes mellitus with hyperglycemia SNOMED: 03925371 (5) HTN (hypertension) ICD Codes: I10 - Essential (primary) hypertension SNOMED: 14248710 (6) COPD (chronic obstructive pulmonary disease) ICD Codes: J44.9 - Chronic obstructive pulmonary disease, unspecified SNOMED: 07679354 (7) Elevated lactic acid level ICD Codes: R79.89 - Other specified abnormal findings of blood chemistry SNOMED: 7132955 (8) Moderate protein-calorie malnutrition ICD Codes: E44.0 - Moderate protein-calorie malnutrition SNOMED: 089907178 Status: stable Assessment/Plan: 63 y/o male admitted to the Hospital with: # Witnessed syncope - Etiology include dehydration vs orthostatic hypotension vs underlying cardiac etiology vs anemia vs metabolic from uncontrolled DM and autonomic dysfunction - Continue monitoring on tele, for dobutamine stress test today. NPO - Orthostatic vital signs q 6 hr are stable - TTE for EF and structural review. - Troponin follow up negative. - Cardiology consult called to Dr. Lozano - Hold BP meds as bp low. # Acute renal failure - Etiology include pre renal due to dehydration vs medication induced. - STOP Metformin and Lisinopril pending response in renal function. Will hold off lisinopril due to low bp . Metformin hold, while in the hospital - Renal US, urine Cr and Na ordered - Renal consultation requested with Dr. Pugh - Trend renal function. improved after IVF - IVF at 75 cc hr with 1/2 NS - Avoid nephrotoxins # Abnormal CXR with LL lobe atelectasis vs infiltrate - No signs of acute pneumonia without cough, sputum, leukocytosis or fever. - Monitor and HOLD antibiotics for now - Lactate was elevated on admission 3.9 and repeat was 2 - most likely due to syncopal event/dehydration # High TSH, Normal T4, low T3, ? Subclinical hypothyroidism - Endocrinology consult- Dr. Greenwood # Bifascicular EKG block with NSR LAFB and RBBB - Cardiology consulted - Telemetry - Trend K and Mag level # Mild Rhabdomyolysis - CK 386 on admission - Trend CK in am post IVF # Recent admission at [facility] with EGD and Colonoscopy done (unknown results) - Try to obtain records with SW # Generalized weakness - PT evaluation in AM # HTN - Hold lisinopril and metoprolol for now due to syncope and low blood pressure. - Monitor and discuss with cardiology next steps. # Constipation -Bowel regimen #CAD #HTN #HLD #PAF - S/p PCI and stents in 06/[address] Henriquez. - Apixaban -Statin -hold BP meds - Follow up cardiology consult #Uncontrolled DM (HbA1c 11.8) -Hold Metformin -Insulin sliding scale -will calculate total daily dose and discharge on insulin -Endocrine consult #Moderate protein calorie malnutrition -Nutrition consult -DC with home health # DVT ppx - Apixaban therapy. will continue at 5 mg BID since renal function improved after IVF # GI ppx - PPI # FULL CODE I spent 40 minutes during this encounter. > 50% spent on counselling and care coordination. I spent an additional 31 minutes in chart review. d/w patient, rn , consultants (endocrine and cardiology) Subjective Date patient seen: Apr 02, 2019 Constitutional: Reports: no symptoms, chills, diaphoresis, fever, malaise, other HEENT: Denies: no symptoms, eye pain, blurred vision, tearing, double vision, ear pain, ear discharge, nose pain, nose congestion, throat pain, throat swelling, mouth pain, mouth swelling, other Cardiovascular: Reports: no symptoms, chest pain, edema, irregular heart rate, palpitations, other Respiratory: Denies: no symptoms, cough, orthopnea, shortness of breath, SOB with excertion, SOB at rest, sputum, stridor, wheezing, other Gastrointestinal/Abdominal: Denies: no symptoms, abdomen distended, abdominal pain, black stools, tarry stools, blood in stool, constipated, diarrhea, difficulty swallowing, nausea, poor appetite, poor fluid intake, rectal bleeding , vomiting, other Genitourinary: Denies: no symptoms, burning, discharge, frequency, flank pain, hematuria, incontinence, pain, urgency, other Neurologic/Psychiatric: Denies: no symptoms, anxiety, depressed, emotional problems, headache, numbness, paresthesia, pre-existing deficit, seizure, tingling, tremors, weakness, other Endocrine: Denies: no symptoms, excessive sweating, flushing, intolerance to cold, intolerance to heat, increased hunger, increased thirst, increased urine, unexplained weight gain, unexplained weight loss, other Hematologic/Lymphatic: Denies: no symptoms, anemia, easy bleeding, easy bruising, other Allergies: Coded Allergies: SHARK LIVER OIL (Unverified Allergy, Unknown, 12/27/15) Uncoded Allergies: SHARK (Allergy, Mild, RASH, 09/01/15) Subjective seen and examined. feels weak. main complaint is lightheadedness. BP low. labs reviewed. NPO for dobutamine stress test by cardiology. Tele reviewed. some episodes of sinus tachycardia , one at this am 137 bpm, some PACs. Tells me he was recently admitted last week to [facility] where he underwent EGD/Colon for anemia (reportedly normal) and received IV iron infusion Objective Last 24 Hour Vital Signs Date Time Temp Pulse Resp B/P (MAP) Pulse Ox O2 Delivery O2 Flow Rate FiO2 04/02/19 06:00 86 91 97 04/02/19 04:14 99.0 82 18 94/52 (66) 96 04/02/19 04:02 88 04/02/19 00:52 75 80 82 04/02/19 00:00 97.5 75 18 107/57 (74) 96 04/02/19 00:00 76 04/01/19 21:36 77 18 96 Room Air 21 04/01/19 21:34 76 16 96 Room Air 21 04/01/19 21:00 Room Air 04/01/19 20:00 97.3 78 16 118/70 (86) 98 04/01/19 20:00 78 04/01/19 18:10 93 04/01/19 18:05 90 04/01/19 18:00 88 04/01/19 16:00 Room Air 04/01/19 16:00 105 04/01/19 16:00 98.0 88 20 102/64 (77) 95 04/01/19 13:02 87 04/01/19 12:00 87 91 98 04/01/19 12:00 Room Air 04/01/19 12:00 98.0 88 20 111/73 (86) 93 04/01/19 09:33 87 18 98 Room Air 21 04/01/19 09:33 87 16 98 Room Air 21 04/01/19 09:20 87 Intake and Output 04/01/19 04/02/19 19:00 07:00 Intake Total 450 ml Output Total 1600 ml Balance 450 ml -1600 ml IV Total 450 ml Output Urine Total 1600 ml # Voids 3 # Bowel Movements 3 1 Laboratory Tests 04/02/19 06:05: Sodium Level 146H, Potassium Level 4.2, Chloride Level 109H, Carbon Dioxide Level 28, Anion Gap 10, Blood Urea Nitrogen 8, Creatinine 1.2, Estimat Glomerular Filtration Rate > 60, Glucose Level 210H, Calcium Level 7.6L, Phosphorus Level 2.5, Magnesium Level 2.1, Iron Level [Pending], Unsaturated Iron Binding [Pending], Ferritin 270, Total Bilirubin 0.3, Aspartate Amino Transf (AST/SGOT) 87H, Alanine Aminotransferase (ALT/SGPT) 70, Alkaline Phosphatase 65, Total Protein 6.6, Albumin 2.7L, Globulin 3.9, Albumin/Globulin Ratio 0.7L, Vitamin B12 Level [Pending], Folate [Pending] Height (Feet): 6 Height (Inches): 0.00 Weight (Pounds): 193 Objective General Appearance: WD/WN, no apparent distress Lines, tubes and drains: peripheral HEENT: normocephalic, atraumatic Neck: non-tender, normal alignment Respiratory/Chest: lungs clear, normal breath sounds Cardiovascular/Chest: normal rate, regular rhythm, no JVD Abdomen: normal bowel sounds, soft Extremities: normal range of motion Skin Exam: normal pigmentation Neurologic: group rooms coordinator II-XII grossly normal, alert, oriented x 3 Asad Cadena M.D. Apr 02, 2019 08:00
--- NOTE | 2019-04-02 08:22 | NUR ---
RESPIRATORY NOTE: Received phone order from Margaux Hung to hold 0900 Inhaler until further notice per MD. Will hold; then, non-admin beyond 0900.
[2019-04-02] MEDS: Theophylline ER 100mg ORAL SCH ×2 (09:00→21:33)
[2019-04-02] MEDS: Albuterol 90mcg Inhaler 8gm INH SCH ×2 (09:00→21:52)
[2019-04-02] MEDS: Docusate 100mg cap ORAL SCH ×2 (09:10→21:00)
[2019-04-02] MEDS: Aspirin Baby 81mg ORAL SCH (09:10)
[2019-04-02] MEDS: Eliquis 5mg tablet ORAL SCH ×2 (09:11→17:10)
[2019-04-02] MEDS: Amantadine 100mg cap ORAL SCH (09:12)
[2019-04-02] MEDS: Levodopa/Carbidopa 25/100 tab ORAL SCH ×3 (09:12→17:10)
--- NOTE | 2019-04-02 09:40 | NUR ---
NURSE NOTES: The patient successfully completed first step of Dobutamine stress test. The primary nurse was informed that Dr. Lazaro will come around 1230 for 2nd step of Dobutamine stress test. The patient is stable without acute distress or shortness of breath. Will continue plan of care.
--- NOTE | 2019-04-02 09:54 | Nephrology Progress Note ---
Assessment/Plan Problem List: (1) Renal failure Assessment: resolved (2) Diabetes (3) COPD exacerbation (4) Syncope Assessment Acute renal failure- Cr 2.6 on presentation now normalized Syncope HypoThyroidism mild Anemia Parkinsons DM OOC COPD Depression HTN CAD LL Atx vs Infilt Plan add Starlix for DM monitor renal parameters slow hydrate anemia thompson optimize cardiac and pulmonary status per orders / Consultants Subjective ROS Limited/Unobtainable: No Objective Objective Last 24 Hour Vital Signs Date Time Temp Pulse Resp B/P (MAP) Pulse Ox O2 Delivery O2 Flow Rate FiO2 04/02/19 09:00 Room Air 21 04/02/19 09:00 Room Air 21 04/02/19 09:00 Room Air 04/02/19 08:00 97.9 88 18 109/78 (88) 95 04/02/19 06:00 86 91 97 04/02/19 04:14 99.0 82 18 94/52 (66) 96 04/02/19 04:02 88 04/02/19 00:52 75 80 82 04/02/19 00:00 97.5 75 18 107/57 (74) 96 04/02/19 00:00 76 04/01/19 21:36 77 18 96 Room Air 21 04/01/19 21:34 76 16 96 Room Air 21 04/01/19 21:00 Room Air 04/01/19 20:00 97.3 78 16 118/70 (86) 98 04/01/19 20:00 78 04/01/19 18:10 93 04/01/19 18:05 90 04/01/19 18:00 88 04/01/19 16:00 Room Air 04/01/19 16:00 105 04/01/19 16:00 98.0 88 20 102/64 (77) 95 04/01/19 13:02 87 04/01/19 12:00 87 91 98 04/01/19 12:00 Room Air 04/01/19 12:00 98.0 88 20 111/73 (86) 93 Intake and Output 04/01/19 04/02/19 19:00 07:00 Intake Total 450 ml Output Total 1600 ml Balance 450 ml -1600 ml IV Total 450 ml Output Urine Total 1600 ml # Voids 3 # Bowel Movements 3 1 Laboratory Tests 04/02/19 06:05: Sodium Level 146H, Potassium Level 4.2, Chloride Level 109H, Carbon Dioxide Level 28, Anion Gap 10, Blood Urea Nitrogen 8, Creatinine 1.2, Estimat Glomerular Filtration Rate > 60, Glucose Level 210H, Calcium Level 7.6L, Phosphorus Level 2.5, Magnesium Level 2.1, Iron Level 122, Total Iron Binding Capacity 306, Percent Iron Saturation 40, Unsaturated Iron Binding 184, Ferritin 270, Total Bilirubin 0.3, Aspartate Amino Transf (AST/SGOT) 87H, Alanine Aminotransferase (ALT/SGPT) 70, Alkaline Phosphatase 65, Total Protein 6.6, Albumin 2.7L, Globulin 3.9, Albumin/Globulin Ratio 0.7L, Vitamin B12 Level 878, Folate 12.6 Height (Feet): 6 Height (Inches): 0.00 Weight (Pounds): 193 General Appearance: no apparent distress Objective no change Joel Rogers MD Apr 02, 2019 09:54
--- NOTE | 2019-04-02 10:41 | Cardiology Report ---
APPROVED REPORT EXAM: Two-dimensional and M-mode echocardiogram with Doppler and color Doppler. INDICATION Syncope M-Mode DIMENSIONS IVSd1.3 (0.7-1.1cm)Left Atrium (MM)2.7 (1.6-4.0cm) LVDd4.7 (3.5-5.6cm)Aortic Root3.6 (2.0-3.7cm) PWd1.0 (0.7-1.1cm)Aortic Cusp Exc.2.0 (1.5-2.0cm) LVDs3.2 (2.5-4.0cm) PWs1.8 cm Normal left ventricular chamber size, systolic function and wall motion. Left ventricular ejection fraction estimated to be 60 %. Mild left ventricular hypertrophy. No evidence of pericardial effusion. All other cardiac chamber sizes are within normal limits. Focal aortic valve sclerosis with adequate cusp excursion. Thickened mitral valve leaflets with normal excursion. Mitral annulus and aortic root calcification. Pulmonic valve not well visualized. Normal tricuspid valve structure. IVC is normal in size with physiological collapse. A color flow and spectral Doppler study was performed and revealed: No aortic regurgitation. No mitral regurgitation. Mitral diastolic velocities suggest mild left ventricular diastolic dysfunction (Grade I). No tricuspid regurgitation. Tricuspid systolic velocities suggests peak right ventricular systolic pressure of 8 mmHg. No pulmonic regurgitation present.
[2019-04-02] MEDS: Nateglinide 60mg tab ORAL SCH ×2 (12:14→17:10)
--- NOTE | 2019-04-02 13:30 | NUR ---
NURSE NOTES: The patient completed Dobutamine stress test per Dr. Lozano's order and under Dr. Lazaro's supervision. The patient is free from chest pain and shortness of breath. The patient has stable vital signs. The patient is stable without acute distress or shortness of breath. Will continue plan of care.
--- NOTE | 2019-04-02 13:52 | NUR ---
CASE MANAGEMENT:REVIEW 04/02/19 SI:SYNCOPE. AFIB. UNCONTROLLED DM 99.9 91 18 108/75 96% ON RA GLUCOSE+210 CA-7.6 IS: IV LEXISCAN X1 STARLIX PO TID AMANTADINE PO QD ASA PO QD ELIQUIS PO BID NEURONTIN PO TID ALBUTEROL INH Q12 TAMRA-DUR PO Q12 : TELEMETRY STATUS DCP: FROM HOME PLAN: MYOCARDIAL STRESS TEST FOR TODAY
--- NOTE | 2019-04-02 14:07 | Cardiac Electrophysiology PN ---
Assessment/Plan Assessment/Plan 1. Syncopal episode in a pt with bifascicular block. The patient is already ruled out for myocardial infarction with serial cardiac enzymes. His urine is not clear. The electrolytes are not suggestive of dehydration. We will watch the patient on telemetry. Stress test today results pending. May need EP study 2. Coronary artery disease with history of prior stent in May 2018. The patient currently denies any chest pain. Continue aspirin and Lipitor. The patient is off antihypertensive agents as blood pressure was in the 90s initially and received IV fluid. 3. Paroxysmal atrial fibrillation, currently in sinus rhythm on Eliquis 5 mg b.i.d. Off any antiarrhythmics. 4. Bifascicular block with right bundle-branch block and left anterior fascicular block. 5. Parkinson's, on Sinemet. 6. Hyperlipidemia. 7. Mild rhabdomyolysis. The patient received IV fluid. 8. Renal failure. Creatinine was 2.6, but followup creatinine has been 1.3 and normal. DANA RN Subjective Subjective Just had Dobutamine Cardiolite today. Results pending Objective Last 24 Hour Vital Signs Date Time Temp Pulse Resp B/P (MAP) Pulse Ox O2 Delivery O2 Flow Rate FiO2 04/02/19 12:05 97 04/02/19 12:00 121 04/02/19 12:00 93 04/02/19 12:00 99.9 91 18 108/75 (86) 96 04/02/19 11:55 75 04/02/19 09:00 Room Air 21 04/02/19 09:00 Room Air 21 04/02/19 09:00 Room Air 04/02/19 08:00 97.9 88 18 109/78 (88) 95 04/02/19 08:00 83 04/02/19 06:00 86 91 97 04/02/19 04:14 99.0 82 18 94/52 (66) 96 04/02/19 04:02 88 04/02/19 00:52 75 80 82 04/02/19 00:00 97.5 75 18 107/57 (74) 96 04/02/19 00:00 76 04/01/19 21:36 77 18 96 Room Air 21 04/01/19 21:34 76 16 96 Room Air 21 04/01/19 21:00 Room Air 04/01/19 20:00 97.3 78 16 118/70 (86) 98 04/01/19 20:00 78 04/01/19 18:10 93 04/01/19 18:05 90 04/01/19 18:00 88 04/01/19 16:00 Room Air 04/01/19 16:00 105 04/01/19 16:00 98.0 88 20 102/64 (77) 95 Intake and Output 04/01/19 04/02/19 19:00 07:00 Intake Total 450 ml Output Total 1600 ml Balance 450 ml -1600 ml IV Total 450 ml Output Urine Total 1600 ml # Voids 3 # Bowel Movements 3 1 Laboratory Tests Test 04/02/19 06:05 Sodium Level 146 MMOL/L (136-145) H Potassium Level 4.2 MMOL/L (3.5-5.1) Chloride Level 109 MMOL/L (98-107) H Carbon Dioxide Level 28 MMOL/L (21-32) Anion Gap 10 mmol/L (5-15) Blood Urea Nitrogen 8 mg/dL (7-18) Creatinine 1.2 MG/DL (0.55-1.30) Estimat Glomerular Filtration Rate > 60 mL/min (>60) Glucose Level 210 MG/DL (74-106) H Calcium Level 7.6 MG/DL (8.5-10.1) L Phosphorus Level 2.5 MG/DL (2.5-4.9) Magnesium Level 2.1 MG/DL (1.8-2.4) Iron Level 122 ug/dL (50-175) Total Iron Binding Capacity 306 ug/dL (250-450) Percent Iron Saturation 40 % (15-50) Unsaturated Iron Binding 184 ug/dL (112-346) Ferritin 270 NG/ML (8-388) Total Bilirubin 0.3 MG/DL (0.2-1.0) Aspartate Amino Transf (AST/SGOT) 87 U/L (15-37) H Alanine Aminotransferase (ALT/SGPT) 70 U/L (12-78) Alkaline Phosphatase 65 U/L (46-116) Total Protein 6.6 G/DL (6.4-8.2) Albumin 2.7 G/DL (3.4-5.0) L Globulin 3.9 g/dL Albumin/Globulin Ratio 0.7 (1.0-2.7) L Vitamin B12 Level 878 PG/ML (193-986) Folate 12.6 NG/ML (8.6-58.9) Microbiology Date/Time Source Procedure Growth Status 03/31/19 12:25 Blood Blood Culture - Preliminary NO GROWTH AFTER 24 HOURS Resulted 03/31/19 12:10 Blood Blood Culture - Preliminary NO GROWTH AFTER 24 HOURS Resulted 03/31/19 19:00 Nasal Nares MRSA Culture - Final NO METHICILLIN RESISTANT STAPH AUREUS... Complete 03/31/19 19:00 Rectum VRE Culture - Final NO VANCOMYCIN RESISTANT ENTEROCOCCUS ... Complete 03/31/19 19:00 Rectum - Final NO CARBAPENEM-RESISTANT ENTEROBACTERI... Complete Objective HEAD AND NECK: No JVD. LUNGS: Clear. CARDIOVASCULAR: Regular S1 and S2 with no gallop or murmur. ABDOMEN: Soft. EXTREMITIES: No pitting edema. Alexandr Lozano MD Apr 02, 2019 14:07
--- NOTE | 2019-04-02 14:34 | NUR ---
NM Myocardial perfusion scan complete.
--- NOTE | 2019-04-02 16:36 | Diagnostic Imaging Report ---
Indication: chest pain. Syncope Technique: The study was conducted under the supervision of a fur comber. Dolbutamine administration followed by intravenous administration of 30.2 mCi of technetium 99m Myoview was performed. Three plane SPECT imaging of the heart was then performed. A resting study was performed as part of the one-day protocol with 11 mCi of technetium 99m myoview injected intravenously at that time. Three plane SPECT imaging of the heart was obtained. Comparison: None Clinical data: 85% maximum predicted heart rate: 132. Resting heart rate: 80. Peak heart rate: 133. (Adequate stress) Resting blood pressure: 118/75. Peak blood pressure: 124/55. Resting EKG: Sinus rhythm. 1. Clinical response: Non ischemic 2. Electrocardiographic response: Non ischemic Findings: The myocardial perfusion scan demonstrates low left ventricular ejection fraction estimated at about 43%. There are no reversible perfusion defects identified to suggest ischemia. However the inferior wall is hypoperfused versus diaphragmatic attenuation. These correlate clinically. IMPRESSION: Suspected diaphragmatic attenuation inferior wall. No evidence of myocardial ischemia. LVEF estimated at 43%
--- NOTE | 2019-04-02 17:30 | NUR ---
NURSE NOTES: The patient is stable without acute distress or shortness of breath. Will continue plan of care.
--- NOTE | 2019-04-02 18:20 | NUR ---
NURSE NOTES: Notified Dr. Lozano and Dr. Cadena regarding low blood pressure upon taking orthostatic vital signs. The patient's supine blood pressure was 75/51 with heart rate of 135. The patient denied the chest pain, shortness of breath, acute dizziness, or change in mental status. Nursing intervention taken and changed the position of the patient. Dr. Lozano ordered NS 500mL bolus. After changing position and starting bolus the patient's blood pressure goes upto 108/67 with pulse rate of 79. The patient denies of chest pain or shortness of breath. Will continue plan of care.
--- NOTE | 2019-04-02 19:10 | NUR ---
NURSE NOTES: Received pt and report from JOLLY Damico. Observed pt resting in bed with both eyes open and watching television. Pt is A/Ox4. color television console monitor is in placed, IV site intact, asymptomatic, and patent; currently running 1/2 NS @50cc/hr. Bed is in the lowest position and locked, call light within reach. No signs/symptoms of acute distress noted at this this time. Will continue plan of care.
--- NOTE | 2019-04-02 19:20 | NUR ---
HAND-OFF: Report given to JOLLY Quintero. The patient is resting on the bed without acute distress or shortness of breath. The patient's bed in the lowest position, call light in reach, and fall and aspiration precaution reinforced. IV site is intact and patent. Endorsed plan of care.
[2019-04-02] MEDS: Atorvastatin 80mg tab ORAL SCH (21:33)
[2019-04-02] MEDS: Tamsulosin 0.4mg cap ORAL SCH (21:33)
[2019-04-03] VITALS: BP 101/63
--- NOTE | 2019-04-03 02:15 | NUR ---
NURSE NOTES: Pt is asleep in bed with both eyes closed; arousable to voice. No signs/symptoms of acute distress noted at this time. Will continue plan of care.
[2019-04-03 04:00] VITALS: BP 109/66
[2019-04-03] MEDS: Nateglinide 60mg tab ORAL SCH ×2 (06:19→11:43)
[2019-04-03] MEDS: NovoLOG Insulin Flexpen SUBQ SCH ×4 (06:21→21:06)
--- NOTE | 2019-04-03 07:15 | NUR ---
NURSE NOTES: I received the patient awake and resting in bed. Patient alert and oriented x4. Patient does not display any signs of distress or SOB. Bed in the lowest position and call light within reach. I will continue to monitor the patient and implement care.
--- NOTE | 2019-04-03 07:33 | NUR ---
HAND-OFF: Report given to JOLLY Bell. Plan of care endorsed.
[2019-04-03 08:00] VITALS: BP 143/71
[2019-04-03] MEDS: Docusate 100mg cap ORAL SCH ×2 (08:11→21:00)
[2019-04-03] MEDS: Eliquis 5mg tablet ORAL SCH ×2 (08:11→16:57)
[2019-04-03] MEDS: Aspirin Baby 81mg ORAL SCH (08:11)
[2019-04-03] MEDS: Amantadine 100mg cap ORAL SCH (08:12)
[2019-04-03] MEDS: Levodopa/Carbidopa 25/100 tab ORAL SCH ×3 (08:12→16:57)
[2019-04-03] MEDS: Theophylline ER 100mg ORAL SCH ×2 (08:12→21:03)
--- NOTE | 2019-04-03 08:14 | Cardiac Electrophysiology PN ---
Assessment/Plan Assessment/Plan 1. Syncopal episode in a pt with bifascicular block. The patient is already ruled out for myocardial infarction with serial cardiac enzymes. The electrolytes are not suggestive of dehydration. We will watch the patient on telemetry. Stress test showed no ischemia. May need EP study 2. CAD, S/P stent in May 2018. The patient currently denies any chest pain. Continue aspirin and Lipitor. The patient is off antihypertensive agents as blood pressure was in the 90s initially and received IV fluid. 3. Paroxysmal atrial fibrillation, in sinus rhythm on Eliquis 5 mg b.i.d. Off any antiarrhythmics. 4. Bifascicular block with right bundle-branch block and left anterior fascicular block. 5. Parkinson's, on Sinemet. 6. Hyperlipidemia. 7. Mild rhabdomyolysis. The patient received IV fluid. 8. Renal failure. Creatinine was 2.6, but followup creatinine has been 1.3 and normal. DANA RN Subjective Subjective Had Dobutamine Cardiolite yesterday that showed no ischemia. Objective Last 24 Hour Vital Signs Date Time Temp Pulse Resp B/P (MAP) Pulse Ox O2 Delivery O2 Flow Rate FiO2 04/03/19 08:00 97.6 80 19 143/71 (95) 95 04/03/19 06:10 98 04/03/19 06:05 85 04/03/19 06:00 80 04/03/19 04:00 97.5 101 18 109/66 (80) 95 04/03/19 04:00 115 04/03/19 00:10 97 04/03/19 00:05 98 04/03/19 00:00 98.0 96 17 101/63 (76) 97 04/03/19 00:00 86 04/03/19 00:00 96 04/02/19 21:55 85 18 95 Room Air 21 04/02/19 21:53 82 16 95 Room Air 21 04/02/19 21:00 Room Air 04/02/19 20:00 84 04/02/19 20:00 97.7 88 19 110/68 (82) 96 04/02/19 19:00 98.1 83 18 114/71 (85) 97 04/02/19 18:30 106 04/02/19 18:25 130 04/02/19 18:20 135 04/02/19 16:00 98.4 86 18 109/67 (81) 96 04/02/19 16:00 96 04/02/19 12:05 97 04/02/19 12:00 121 04/02/19 12:00 93 04/02/19 12:00 99.9 91 18 108/75 (86) 96 04/02/19 11:55 75 04/02/19 09:00 Room Air 21 04/02/19 09:00 Room Air 21 04/02/19 09:00 Room Air Intake and Output 04/02/19 04/03/19 19:00 07:00 # Voids 1 # Bowel Movements 1 Microbiology Date/Time Source Procedure Growth Status 03/31/19 12:25 Blood Blood Culture - Preliminary NO GROWTH AFTER 48 HOURS Resulted 03/31/19 12:10 Blood Blood Culture - Preliminary NO GROWTH AFTER 48 HOURS Resulted 03/31/19 19:00 Nasal Nares MRSA Culture - Final NO METHICILLIN RESISTANT STAPH AUREUS... Complete 03/31/19 19:00 Rectum VRE Culture - Final NO VANCOMYCIN RESISTANT ENTEROCOCCUS ... Complete 03/31/19 19:00 Rectum - Final NO CARBAPENEM-RESISTANT ENTEROBACTERI... Complete Objective HEAD AND NECK: No JVD. LUNGS: Clear. CARDIOVASCULAR: Regular S1 and S2 with no gallop or murmur. ABDOMEN: Soft. EXTREMITIES: No pitting edema. Alexandr Lozano MD Apr 03, 2019 08:14
[2019-04-03] MEDS: Albuterol 90mcg Inhaler 8gm INH SCH ×2 (08:29→21:00)
--- NOTE | 2019-04-03 08:47 | General Progress Note ---
Assessment/Plan Problem List: (1) Syncope ICD Codes: R55 - Syncope and collapse SNOMED: 188071886 Qualifiers: Qualified Codes: R55 - Syncope and collapse (2) Anemia ICD Codes: D64.9 - Anemia, unspecified SNOMED: 119219910 (3) Atrial fibrillation ICD Codes: I48.91 - Unspecified atrial fibrillation SNOMED: 63621935 (4) Uncontrolled diabetes mellitus with hyperglycemia ICD Codes: E11.65 - Type 2 diabetes mellitus with hyperglycemia SNOMED: 44336613 (5) HTN (hypertension) ICD Codes: I10 - Essential (primary) hypertension SNOMED: 71383208 (6) COPD (chronic obstructive pulmonary disease) ICD Codes: J44.9 - Chronic obstructive pulmonary disease, unspecified SNOMED: 50194987 (7) Elevated lactic acid level ICD Codes: R79.89 - Other specified abnormal findings of blood chemistry SNOMED: 7396526 (8) Moderate protein-calorie malnutrition ICD Codes: E44.0 - Moderate protein-calorie malnutrition SNOMED: 304776791 Status: stable Assessment/Plan: 63 y/o male admitted to the Hospital with: # Witnessed syncope - Etiology include dehydration vs orthostatic hypotension vs underlying cardiac etiology vs anemia vs metabolic from uncontrolled DM and autonomic dysfunction - Continue monitoring on tele -Stress jaylen tnegative for active ischemia, reduced EF noted - Orthostatic vital signs q 6 hr are stable - TTE reviewed - Troponin follow up negative. - Cardiology consult called to Dr. Lozano. - Hold BP meds as bp low. hypotensive last night, responded to 750 ml bolus of NS. # Acute renal failure- resolved - Etiology include pre renal due to dehydration vs medication induced. - STOP Metformin and Lisinopril pending response in renal function. Will hold off lisinopril due to low bp . Metformin held, while in the hospital - Renal US, urine Cr and Na ordered - Renal consultation requested with Dr. Pugh - Trend renal function. improved after IVF - IVF - Avoid nephrotoxins # Abnormal CXR with LL lobe atelectasis vs infiltrate - No signs of acute pneumonia without cough, sputum, leukocytosis or fever. - Monitor and HOLD antibiotics for now - Lactate was elevated on admission 3.9 and repeat was 2 - most likely due to syncopal event/dehydration # High TSH, Normal T4, low T3, ? Subclinical hypothyroidism - Endocrinology consult- Dr. Nazemi- repeat TSH 3.7 # Bifascicular EKG block with NSR LAFB and RBBB - Cardiology consulted - Telemetry - Trend K and Mag level # Mild Rhabdomyolysis - CK 386 on admission - Trend CK in am post IVF # Recent admission at [facility] with EGD and Colonoscopy done (unknown results) per patient normal - Try to obtain records with SW # Generalized weakness - PT evaluation for dc planning # Constipation -Bowel regimen #CAD #HTN #HLD #PAF - S/p PCI and stents in 06/[address] Henriquez. - Apixaban -Statin -hold BP meds (lisinopril and metoprolol), may need digoxin for rate control - Follow up cardiology consult #Uncontrolled DM (HbA1c 11.8) -Hold Metformin -Insulin sliding scale -will calculate total daily dose and discharge on insulin -Endocrine consult #Moderate protein calorie malnutrition -Nutrition consult -DC with home health # DVT ppx - Apixaban therapy. will continue at 5 mg BID since renal function improved after IVF # GI ppx - PPI # FULL CODE I spent 40 minutes during this encounter. > 50% spent on counselling and care coordination. I spent an additional 31 minutes in chart review. d/w patient, rn , consultants (endocrine and cardiology) Subjective Date patient seen: Apr 03, 2019 ROS Limited/Unobtainable: No Constitutional: Reports: no symptoms, chills, diaphoresis, fever, malaise, other HEENT: Denies: no symptoms, eye pain, blurred vision, tearing, double vision, ear pain, ear discharge, nose pain, nose congestion, throat pain, throat swelling, mouth pain, mouth swelling, other Cardiovascular: Denies: no symptoms, chest pain, edema, irregular heart rate, lightheadedness, palpitations, syncope, other Respiratory: Denies: no symptoms, cough, orthopnea, shortness of breath, SOB with excertion, SOB at rest, sputum, stridor, wheezing, other Gastrointestinal/Abdominal: Denies: no symptoms, abdomen distended, abdominal pain, black stools, tarry stools, blood in stool, constipated, diarrhea, difficulty swallowing, nausea, poor appetite, poor fluid intake, rectal bleeding , vomiting, other Genitourinary: Denies: no symptoms, burning, discharge, frequency, flank pain, hematuria, incontinence, pain, urgency, other Neurologic/Psychiatric: Denies: no symptoms, anxiety, depressed, emotional problems, headache, numbness, paresthesia, pre-existing deficit, seizure, tingling, tremors, weakness, other Endocrine: Denies: no symptoms, excessive sweating, flushing, intolerance to cold, intolerance to heat, increased hunger, increased thirst, increased urine, unexplained weight gain, unexplained weight loss, other Allergies: Coded Allergies: SHARK LIVER OIL (Unverified Allergy, Unknown, 12/27/15) Uncoded Allergies: SHARK (Allergy, Mild, RASH, 09/01/15) Subjective low bp last night, required bolus of NS, 750ml. BP better, no complaints. Labs pending. Stress test results reviewed Objective Last 24 Hour Vital Signs Date Time Temp Pulse Resp B/P (MAP) Pulse Ox O2 Delivery O2 Flow Rate FiO2 04/03/19 08:31 81 20 95 Room Air 21 04/03/19 08:30 79 20 95 Room Air 21 04/03/19 08:00 97.6 80 19 143/71 (95) 95 04/03/19 06:10 98 04/03/19 06:05 85 04/03/19 06:00 80 04/03/19 04:00 97.5 101 18 109/66 (80) 95 04/03/19 04:00 115 04/03/19 00:10 97 04/03/19 00:05 98 04/03/19 00:00 98.0 96 17 101/63 (76) 97 04/03/19 00:00 86 04/03/19 00:00 96 04/02/19 21:55 85 18 95 Room Air 21 04/02/19 21:53 82 16 95 Room Air 21 04/02/19 21:00 Room Air 04/02/19 20:00 84 04/02/19 20:00 97.7 88 19 110/68 (82) 96 04/02/19 19:00 98.1 83 18 114/71 (85) 97 04/02/19 18:30 106 04/02/19 18:25 130 04/02/19 18:20 135 04/02/19 16:00 98.4 86 18 109/67 (81) 96 04/02/19 16:00 96 04/02/19 12:05 97 04/02/19 12:00 121 04/02/19 12:00 93 04/02/19 12:00 99.9 91 18 108/75 (86) 96 04/02/19 11:55 75 04/02/19 09:00 Room Air 21 04/02/19 09:00 Room Air 21 04/02/19 09:00 Room Air Intake and Output 04/02/19 04/03/19 19:00 07:00 Intake Total 120 ml Balance 120 ml Intake Oral 120 ml # Voids 1 # Bowel Movements 1 Height (Feet): 6 Height (Inches): 0.00 Weight (Pounds): 193 Objective General Appearance: WD/WN, no apparent distress Lines, tubes and drains: peripheral HEENT: normocephalic, atraumatic Neck: non-tender, normal alignment Respiratory/Chest: lungs clear, normal breath sounds Cardiovascular/Chest: normal rate, regular rhythm, no JVD Abdomen: normal bowel sounds, soft Extremities: normal range of motion Skin Exam: normal pigmentation Neurologic: battery mechanic II-XII grossly normal, alert, oriented x 3 Asad Cadena M.D. Apr 03, 2019 08:47
[2019-04-03 09:53] LABS: BASOPHILS % (AUTO) 0.9 % (0.0-2.0); EOSINOPHILS % (AUTO) 2.8 % (0.0-3.0); HEMATOCRIT 30.3 % (42.0-52.0); HEMOGLOBIN 10.1 G/DL (14.2-18.0); LYMPHOCYTES % (AUTO) 32.5 % (20.0-45.0); MEAN CORPUSCULAR VOLUME 78 FL (80-99); MONOCYTES % (AUTO) 11.2 % (1.0-10.0); NEUTROPHILS % (AUTO) 52.6 % (45.0-75.0); PLATELET COUNT 256 K/UL (150-450); RED BLOOD COUNT 3.86 M/UL (4.70-6.10)
[2019-04-03 10:08] LABS: ANION GAP 8 mmol/L (5-15); BLOOD UREA NITROGEN 5 mg/dL (7-18); CALCIUM 7.8 MG/DL (8.5-10.1); CARBON DIOXIDE 27 MMOL/L (21-32); CHLORIDE 107 MMOL/L (98-107); CREATININE 1.1 MG/DL (0.55-1.30); POTASSIUM 3.7 MMOL/L (3.5-5.1); SODIUM 142 MMOL/L (136-145)
--- NOTE | 2019-04-03 10:13 | NUR ---
NURSE NOTES: Patient's sacral wound dressing changed and patient repositioned in bed. Patient tolerated the dressing change well. Bed in the lowest position and call light within reach.
[2019-04-03 12:00] VITALS: BP 127/61
--- NOTE | 2019-04-03 12:23 | Nephrology Progress Note ---
Assessment/Plan Problem List: (1) Renal failure Assessment: resolved (2) Diabetes (3) COPD exacerbation (4) Syncope Assessment Acute renal failure- Cr 2.6 on presentation now normalized Syncope HypoThyroidism mild Anemia Parkinsons DM OOC COPD Depression HTN CAD LL Atx vs Infilt Plan add Starlix for DM monitor renal parameters slow hydrate anemia thompson optimize cardiac and pulmonary status per orders / Consultants Subjective ROS Limited/Unobtainable: No Objective Objective Last 24 Hour Vital Signs Date Time Temp Pulse Resp B/P (MAP) Pulse Ox O2 Delivery O2 Flow Rate FiO2 04/03/19 08:31 81 20 95 Room Air 21 04/03/19 08:30 79 20 95 Room Air 21 04/03/19 08:00 97.6 80 19 143/71 (95) 95 04/03/19 07:43 92 04/03/19 06:10 98 04/03/19 06:05 85 04/03/19 06:00 80 04/03/19 04:00 97.5 101 18 109/66 (80) 95 04/03/19 04:00 115 04/03/19 00:10 97 04/03/19 00:05 98 04/03/19 00:00 98.0 96 17 101/63 (76) 97 04/03/19 00:00 86 04/03/19 00:00 96 04/02/19 21:55 85 18 95 Room Air 21 04/02/19 21:53 82 16 95 Room Air 21 04/02/19 21:00 Room Air 04/02/19 20:00 84 04/02/19 20:00 97.7 88 19 110/68 (82) 96 04/02/19 19:00 98.1 83 18 114/71 (85) 97 04/02/19 18:30 106 04/02/19 18:25 130 04/02/19 18:20 135 04/02/19 16:00 98.4 86 18 109/67 (81) 96 04/02/19 16:00 96 Intake and Output 04/02/19 04/03/19 19:00 07:00 Intake Total 120 ml Balance 120 ml Intake Oral 120 ml # Voids 1 # Bowel Movements 1 Laboratory Tests 04/03/19 09:45: White Blood Count 4.0L, Red Blood Count 3.86L, Hemoglobin 10.1L, Hematocrit 30.3L, Mean Corpuscular Volume 78L, Mean Corpuscular Hemoglobin 26.2L, Mean Corpuscular Hemoglobin Concent 33.3, Red Cell Distribution Width 14.0, Platelet Count 256, Mean Platelet Volume 5.6L, Neutrophils (%) (Auto) 52.6, Lymphocytes ( %) (Auto) 32.5, Monocytes (%) (Auto) 11.2H, Eosinophils (%) (Auto) 2.8, Basophils (%) (Auto) 0.9, Sodium Level 142, Potassium Level 3.7, Chloride Level 107, Carbon Dioxide Level 27, Anion Gap 8, Blood Urea Nitrogen 5L, Creatinine 1.1, Estimat Glomerular Filtration Rate > 60, Glucose Level 208H, Calcium Level 7.8L Height (Feet): 6 Height (Inches): 0.00 Weight (Pounds): 193 General Appearance: no apparent distress Objective no change Joel Rogers MD Apr 03, 2019 12:23
[2019-04-03 16:00] VITALS: BP 121/86
[2019-04-03] MEDS ORDERED: FERROUS SULFAT325 MG ORAL (18:15)
[2019-04-03] MEDS ORDERED: METOPROLOL SUCC25 MG ORAL (18:17)
[2019-04-03] MEDS ORDERED: TRELEGY ELLIPTA INH (18:28)
--- NOTE | 2019-04-03 19:15 | NUR ---
NURSE NOTES: Received pt and report from JOLLY Bell. Observed pt resting in bed with both eyes open and watching television. Pt is A/Ox4. IV site intact, asymptomatic, and patent; currently running 1/2 NS at 50cc/hr. Bed is in the lowest position and locked. Call light and beside table within reach. No signs/symptoms of acute distress noted at this time. Will continue plan of care.
--- NOTE | 2019-04-03 19:24 | NUR ---
HAND-OFF: Report given to JOLLY Quintero.
[2019-04-03 20:00] VITALS: BP 120/75
--- NOTE | 2019-04-03 20:30 | Consultation ---
DATE OF CONSULTATION: 04/03/2019 NEPHROLOGY CONSULTATION CONSULTING PHYSICIAN: Pacheco Greenwood M.D. REFERRING PHYSICIAN: Rupali Jeter M.D. REASON FOR CONSULTATION: 1. Abnormal TSH. 2. Diabetes management. HISTORY OF PRESENT ILLNESS: The patient is a 63-year-old male who was recently discharged from [facility] few days ago, having an EGD and colonoscopy yesterday without any GI bleed or other findings. The patient has history of diabetes, coronary artery disease status post PCI and stent placement in May [address] Ricardo Henriquez at [facility]. The patient takes insulin for his diabetes mellitus on Lantus and NovoLog as well as metformin. He is on anticoagulation with Apixaban. The patient was admitted to the hospital on March 31, 2019 after he was at a store and passed out at bus stop. He had a syncopal episode, admitted to the hospital for observation and treatment. Thyroid function was obtained, which showed abnormal TSH of 18.6 with a normal T4 and T3. The patient has no history of hypothyroidism. ALLERGIES: Shark liver. MEDICATIONS: Reviewed and reconciled. PAST MEDICAL HISTORY: 1. Coronary artery disease. 2. Diabetes. 3. Hypertension. PAST SURGICAL HISTORY: Coronary artery stent placement. FAMILY HISTORY: Diabetes. REVIEW OF SYSTEMS: A 12-point review of systems was performed. The pertinent positives are mentioned present illness. PHYSICAL EXAMINATION: VITAL SIGNS: Temperature of 98.2, pulse of 79, BP 130/80, pulse oximetry 96%. LABORATORY VALUES: Thyroid function discussed in present illness. WBC 4, hemoglobin 10, hematocrit 30, platelet of 256. Sodium 142, potassium 3.7, chloride 107, bicarbonate 27, BUN 5, creatinine 1.1, glucose of 208. Hemoglobin A1c is 11.8. DIAGNOSES: 1. Syncope. 2. Abnormal TSH. 3. Diabetes. PLAN: 1. TSH was repeated and at this time came as normal at 3.7 so first one was mostly likely a lab error. He does not needed to be treated with thyroid hormone. I recommend to repeat the thyroid function as an outpatient in 4 weeks. 2. Diabetes out of control, currently glucose in the 100s range. Continue glimepiride 120 mg before each meal. Continue NovoLog sliding scale. We will add 6 units of basal insulin Levemir at bedtime. I will follow the patient closely during hospital stay. Thank you, Dr. Jeter, for the courtesy of this consultation. Pacheco Greenwood M.D. DR: Gisela JOB#: [id number] CC: MEE
[2019-04-03] MEDS: Tamsulosin 0.4mg cap ORAL SCH (21:03)
[2019-04-03] MEDS: Atorvastatin 80mg tab ORAL SCH (21:04)
[2019-04-03] MEDS: Levemir Flexpen SUBQ SCH (21:06)
[2019-04-04] VITALS: BP 102/64
--- NOTE | 2019-04-04 02:08 | NUR ---
NURSE NOTES: Observed pt asleep in bed; arousable to voice. No signs/symptoms of acute distress noted at this time. Will continue plan of care.
[2019-04-04 04:00] VITALS: BP 110/74
[2019-04-04] MEDS: NovoLOG Insulin Flexpen SUBQ SCH ×4 (06:05→21:46)
[2019-04-04 07:19] LABS: ANION GAP 10 mmol/L (5-15); BLOOD UREA NITROGEN 5 mg/dL (7-18); CALCIUM 8.4 MG/DL (8.5-10.1); CARBON DIOXIDE 26 MMOL/L (21-32); CHLORIDE 109 MMOL/L (98-107); POTASSIUM 3.8 MMOL/L (3.5-5.1); SODIUM 145 MMOL/L (136-145)
--- NOTE | 2019-04-04 07:20 | NUR ---
NURSE NOTES: Received report from JOLLY Quintero. The patient is resting on the bed without acute distress or shortness of breath. The patient's bed in the lowest position, call light in reach, and fall and aspiration precaution reinforced. IV site intact and patent. Will continue plan of care.
--- NOTE | 2019-04-04 07:30 | NUR ---
HAND-OFF: Report given to JOLLY Damico. Pt is in stable condition eating breakfast in bed. Plan of care endorsed.
[2019-04-04 08:00] VITALS: BP 117/68
[2019-04-04] MEDS: Docusate 100mg cap ORAL SCH ×2 (09:11→21:00)
[2019-04-04] MEDS: Eliquis 5mg tablet ORAL SCH ×2 (09:11→17:08)
[2019-04-04] MEDS: Aspirin Baby 81mg ORAL SCH (09:11)
[2019-04-04] MEDS: Levodopa/Carbidopa 25/100 tab ORAL SCH ×3 (09:12→17:08)
[2019-04-04] MEDS: Theophylline ER 100mg ORAL SCH ×2 (09:12→21:26)
[2019-04-04] MEDS: Amantadine 100mg cap ORAL SCH (09:12)
[2019-04-04] MEDS: Albuterol 90mcg Inhaler 8gm INH SCH ×2 (09:17→21:23)
--- NOTE | 2019-04-04 10:00 | NUR ---
NURSE NOTES: Dr. Cadena at the bedside assessed the patient. The patient is stable without acute distress or shortness of breath. Notified Dr. Cadena regarding the patient's tachycardia. Dr. Cadena ordered medication. Will continue plan of care.
--- NOTE | 2019-04-04 10:36 | General Progress Note ---
Assessment/Plan Problem List: (1) Syncope ICD Codes: R55 - Syncope and collapse SNOMED: 200954704 Qualifiers: Qualified Codes: R55 - Syncope and collapse (2) Anemia ICD Codes: D64.9 - Anemia, unspecified SNOMED: 099019921 (3) Atrial fibrillation ICD Codes: I48.91 - Unspecified atrial fibrillation SNOMED: 72246883 (4) Uncontrolled diabetes mellitus with hyperglycemia ICD Codes: E11.65 - Type 2 diabetes mellitus with hyperglycemia SNOMED: 51818190 (5) HTN (hypertension) ICD Codes: I10 - Essential (primary) hypertension SNOMED: 50574235 (6) COPD (chronic obstructive pulmonary disease) ICD Codes: J44.9 - Chronic obstructive pulmonary disease, unspecified SNOMED: 54121114 (7) Elevated lactic acid level ICD Codes: R79.89 - Other specified abnormal findings of blood chemistry SNOMED: 3237776 (8) Moderate protein-calorie malnutrition ICD Codes: E44.0 - Moderate protein-calorie malnutrition SNOMED: 566936728 Status: stable Assessment/Plan: 63 y/o male admitted to the Hospital with: #Syncope - Etiology include dehydration vs orthostatic hypotension vs underlying cardiac etiology vs anemia vs metabolic from uncontrolled DM and autonomic dysfunction - Continue monitoring on tele -Stress test negative for active ischemia, reduced EF noted - TTE reviewed - Troponin follow up negative. - Cardiology consult called to Dr. Lozano. - Hypotension responded well to hydration, resume home Metoprol succinate xl, reduce dose to 12.5 mg daily -Cortisol AM sent- f/u # Acute renal failure- resolved - Etiology include pre renal due to dehydration vs medication induced. - Holding Metformin and ARB. Will continue to hold ARB due to borderline BP. Metformin held, while in the hospital - Renal consultation requested with Dr. Pugh - Avoid nephrotoxins # Mild Rhabdomyolysis - CK 386 on admission - Trend CK in am post IVF #CAD #HTN #HLD #PAF # Bifascicular EKG block with NSR LAFB and RBBB #Systolic chf - S/p PCI and stents in 06/[address] Henriquez. [address] Lazaro outpatient - Apixaban -Statin -Resume metoprolol succinate at reduced dose of 12.5 mg daily -Hold Acei/ARB - Follow up cardiology consult -monitor and replace electrolytes #Uncontrolled DM (HbA1c 11.8) -Hold Metformin -Continue Nateglinide 120 mg po before meals -Lantus 6 units -Insulin sliding scale -Endocrine consult # High TSH, Normal T4, low T3, ? Subclinical hypothyroidism vs. Lab error - Endocrinology consult- Dr. Greenwood- repeat TSH 3.7 , no further testing indicated #COPD/Asthma- stable continue home Theophylline. Levels checked #Moderate protein calorie malnutrition -Nutrition consult -DC with home health # Generalized weakness - PT evaluation for dc planning # Constipation -Bowel regimen # Abnormal CXR with LL lobe atelectasis vs infiltrate - No signs of acute pneumonia without cough, sputum, leukocytosis or fever. - Monitor and HOLD antibiotics for now - Lactate was elevated on admission 3.9 and repeat was 2 - most likely due to syncopal event/dehydration # DVT ppx - Apixaban therapy. will continue at 5 mg BID since renal function improved after IVF # GI ppx - PPI # FULL CODE #Diet: fluid restriction to 1.5 l per day I spent 40 minutes during this encounter. > 50% spent on counselling and care coordination. I spent an additional 31 minutes in chart review. d/w patient, rn , consultants (endocrine and cardiology) Subjective Date patient seen: Apr 04, 2019 ROS Limited/Unobtainable: No Constitutional: Denies: no symptoms, chills, diaphoresis, fever, malaise, weakness, other HEENT: Denies: no symptoms, eye pain, blurred vision, tearing, double vision, ear pain, ear discharge, nose pain, nose congestion, throat pain, throat swelling, mouth pain, mouth swelling, other Cardiovascular: Denies: no symptoms, chest pain, edema, irregular heart rate, lightheadedness, palpitations, syncope, other Respiratory: Denies: no symptoms, cough, orthopnea, shortness of breath, SOB with excertion, SOB at rest, sputum, stridor, wheezing, other Gastrointestinal/Abdominal: Denies: no symptoms, abdomen distended, abdominal pain, black stools, tarry stools, blood in stool, constipated, diarrhea, difficulty swallowing, nausea, poor appetite, poor fluid intake, rectal bleeding , vomiting, other Genitourinary: Denies: no symptoms, burning, discharge, frequency, flank pain, hematuria, incontinence, pain, urgency, other Neurologic/Psychiatric: Denies: no symptoms, anxiety, depressed, emotional problems, headache, numbness, paresthesia, pre-existing deficit, seizure, tingling, tremors, weakness, other Endocrine: Denies: no symptoms, excessive sweating, flushing, intolerance to cold, intolerance to heat, increased hunger, increased thirst, increased urine, unexplained weight gain, unexplained weight loss, other Hematologic/Lymphatic: Denies: no symptoms, anemia, easy bleeding, easy bruising, other Allergies: Coded Allergies: SHARK LIVER OIL (Unverified Allergy, Unknown, 12/27/15) Uncoded Allergies: SHARK (Allergy, Mild, RASH, 09/01/15) Subjective Bp better after hydration. deies cp, sob, palpitations, syncope. tele remarkable for sinus tachycardia up to 130's. stress test non ischemic. Objective Last 24 Hour Vital Signs Date Time Temp Pulse Resp B/P (MAP) Pulse Ox O2 Delivery O2 Flow Rate FiO2 04/04/19 09:18 94 16 96 Room Air 21 04/04/19 08:00 97.5 102 18 117/68 (84) 97 04/04/19 06:00 97 101 84 04/04/19 04:00 97.6 97 19 110/74 (86) 95 04/04/19 04:00 82 04/04/19 00:00 98.0 92 18 102/64 (77) 94 04/04/19 00:00 92 91 110 04/04/19 00:00 99 04/03/19 21:42 76 18 95 Room Air 21 04/03/19 21:42 90 18 95 Room Air 21 04/03/19 21:00 Room Air 04/03/19 20:00 78 04/03/19 20:00 97.7 87 19 120/75 (90) 96 04/03/19 18:00 67 81 83 04/03/19 16:00 85 04/03/19 16:00 97.7 61 20 121/86 (98) 95 04/03/19 12:00 95 04/03/19 12:00 97.7 81 18 127/61 (83) 96 04/03/19 12:00 81 101 106 Intake and Output 04/03/19 04/04/19 19:00 07:00 Intake Total 380 ml 540 ml Output Total 300 ml 1050 ml Balance 80 ml -510 ml Intake Oral 280 ml 540 ml IV Total 100 ml Output Urine Total 300 ml 1050 ml # Voids 3 2 Laboratory Tests 04/04/19 05:27: Sodium Level 145, Potassium Level 3.8, Chloride Level 109H, Carbon Dioxide Level 26, Anion Gap 10, Blood Urea Nitrogen 5L, Creatinine 1.0, Estimat Glomerular Filtration Rate > 60, Glucose Level 123H, Calcium Level 8.4L Height (Feet): 6 Height (Inches): 0.00 Weight (Pounds): 195 Objective General Appearance: WD/WN, no apparent distress Lines, tubes and drains: peripheral HEENT: normocephalic, atraumatic Neck: non-tender, normal alignment Respiratory/Chest: lungs clear, normal breath sounds Cardiovascular/Chest: normal rate, regular rhythm, no JVD Abdomen: normal bowel sounds, soft Extremities: normal range of motion Skin Exam: normal pigmentation Neurologic: 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 Apr 04, 2019 10:36
[2019-04-04 12:00] VITALS: BP 102/68
--- NOTE | 2019-04-04 13:47 | NUR ---
CASE MANAGEMENT:REVIEW 04/04/19 SI:SYNCOPE. AFIB. UNCONTROLLED DM HR NOT CONTROLLED...BP DROPPED LAST NOC TO 101/63 97.5 102 18 117/68 97% ON RA H/H-.06/21.3 IS: TOPROL XL PO QD STARLIX PO TID AMANTADINE PO QD ASA PO QD ELIQUIS PO BID NEURONTIN PO TID ALBUTEROL INH Q12 TAMRA-DUR PO Q12 : TELEMETRY STATUS DCP: FROM HOME PLAN: STRESS TEST NON ISCHEMIC CONTROL HEART RATE WITHOUT COMPROMISING BLOOD PRESSURE
--- NOTE | 2019-04-04 14:00 | NUR ---
NURSE NOTES: The patient is stable without acute distress or shortness of breath. Will continue plan of care.
--- NOTE | 2019-04-04 14:01 | General Progress Note ---
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 SNOMED: 178577715 (3) COPD (chronic obstructive pulmonary disease) ICD Codes: J44.9 - Chronic obstructive pulmonary disease, unspecified SNOMED: 84141877 (4) Uncontrolled diabetes mellitus with hyperglycemia ICD Codes: E11.65 - Type 2 diabetes mellitus with hyperglycemia SNOMED: 49123217 Status: stable Assessment/Plan: increase Levemir to 10 units qhs continue Starlix 120 mg ac tid continue NISS ac / hs Subjective Allergies: Coded Allergies: SHARK LIVER OIL (Unverified Allergy, Unknown, 12/27/15) Uncoded Allergies: SHARK (Allergy, Mild, RASH, 09/01/15) All Systems: reviewed and negative except above Subjective events noted Item Value Date Time Bedside Blood Glucose 179 mg/dl H 04/04/19 1206 Bedside Blood Glucose 136 mg/dl H 04/04/19 0630 Bedside Blood Glucose 192 mg/dl H 04/03/19 2106 Bedside Blood Glucose 187 mg/dl H 04/03/19 1659 Bedside Blood Glucose 180 mg/dl H 04/03/19 1220 Objective Last 24 Hour Vital Signs Date Time Temp Pulse Resp B/P (MAP) Pulse Ox O2 Delivery O2 Flow Rate FiO2 04/04/19 09:18 94 16 96 Room Air 21 04/04/19 08:00 106 04/04/19 08:00 97.5 102 18 117/68 (84) 97 04/04/19 06:00 97 101 84 04/04/19 04:00 97.6 97 19 110/74 (86) 95 04/04/19 04:00 82 04/04/19 00:00 98.0 92 18 102/64 (77) 94 04/04/19 00:00 92 91 110 04/04/19 00:00 99 04/03/19 21:42 76 18 95 Room Air 21 04/03/19 21:42 90 18 95 Room Air 21 04/03/19 21:00 Room Air 04/03/19 20:00 78 04/03/19 20:00 97.7 87 19 120/75 (90) 96 04/03/19 18:00 67 81 83 04/03/19 16:00 85 04/03/19 16:00 97.7 61 20 121/86 (98) 95 Intake and Output 04/03/19 04/04/19 19:00 07:00 Intake Total 380 ml 540 ml Output Total 300 ml 1050 ml Balance 80 ml -510 ml Intake Oral 280 ml 540 ml IV Total 100 ml Output Urine Total 300 ml 1050 ml # Voids 3 2 Laboratory Tests 04/04/19 05:27: Sodium Level 145, Potassium Level 3.8, Chloride Level 109H, Carbon Dioxide Level 26, Anion Gap 10, Blood Urea Nitrogen 5L, Creatinine 1.0, Estimat Glomerular Filtration Rate > 60, Glucose Level 123H, Calcium Level 8.4L, Cortisol AM Sample [Pending], Theophylline Level 11.1 Height (Feet): 6 Height (Inches): 0.00 Weight (Pounds): 195 General Appearance: no apparent distress Neck: normal alignment Cardiovascular: normal rate Respiratory/Chest: lungs clear Abdomen: normal bowel sounds Pelvis: normal external exam Objective Current Medications Medications (Trade) Dose Ordered Sig/Tom Route PRN Reason Start Time Stop Time Status Last Admin Dose Admin Albuterol Sulfate (Proventil MDI) 2 puff Q12HR INH 04/01/19 21:00 04/30/19 20:59 04/04/19 09:17 Albuterol/ Ipratropium (Albuterol/ Ipratropium) 3 ml Q4H PRN HHN Shortness of Breath 04/01/19 18:00 04/05/19 17:59 Amantadine HCl (Symmetrel) 100 mg DAILY ORAL 04/02/19 09:00 05/01/19 08:59 04/04/19 09:12 Apixaban (Eliquis) 5 mg BID ORAL 04/02/19 09:00 05/02/19 08:59 04/04/19 09:11 Aspirin (ASA) 81 mg DAILY ORAL 04/02/19 09:00 05/01/19 08:59 04/04/19 09:11 Atorvastatin Calcium (Lipitor) 80 mg BEDTIME ORAL 04/01/19 21:00 04/30/19 20:59 04/03/19 21:04 Carbidopa/Levodopa (Sinemet 25/100) 1 tab THREE TIMES A DAY ORAL 04/02/19 09:00 05/02/19 08:59 04/04/19 12:07 Dextrose (Dextrose 50%) 25 ml Q30M PRN IV Hypoglycemia 04/03/19 18:30 05/03/19 18:29 Dextrose (Dextrose 50%) 50 ml Q30M PRN IV Hypoglycemia 04/03/19 18:30 05/03/19 18:29 Docusate Sodium (Colace) 100 mg EVERY 12 HOURS ORAL 04/01/19 21:00 04/30/19 20:59 04/04/19 09:11 Famotidine (Pepcid) 40 mg DAILY ORAL 04/02/19 09:00 05/01/19 08:59 04/04/19 09:12 Gabapentin (Neurontin) 600 mg Q8HR ORAL 04/03/19 14:00 05/03/19 13:59 04/04/19 06:03 Hydralazine HCl (Apresoline) 10 mg Q6H PRN IV For High Blood Pressure 04/01/19 18:00 04/30/19 17:59 Insulin Aspart (NovoLOG) BEFORE MEALS AND HS SUBQ 04/01/19 21:00 04/30/19 20:59 04/04/19 12:06 Insulin Detemir (Levemir) 6 units BEDTIME SUBQ 04/03/19 21:00 05/03/19 20:59 04/03/19 21:06 Metoprolol Succinate (Toprol XL) 12.5 mg DAILY ORAL 04/04/19 13:41 05/04/19 13:40 Nateglinide (Starlix) 120 mg TIAC ORAL 04/03/19 16:30 05/02/19 11:29 04/04/19 12:05 Nitroglycerin (Ntg) 0.4 mg Q5MIN X 3 DOSES PRN SL CHEST PAIN 04/01/19 18:00 04/30/19 16:44 Ondansetron HCl (Zofran) 4 mg Q6H PRN IVP Nausea & Vomiting 04/01/19 18:00 04/30/19 17:59 Polyethylene Glycol (Miralax) 17 gm DAILYPRN PRN ORAL Constipation 04/01/19 18:00 05/01/19 17:59 Sodium Chloride 1,000 ml @ 50 mls/hr Q20H IV 04/01/19 18:00 04/30/19 14:59 04/04/19 06:03 Tamsulosin HCl (Flomax) 0.8 mg BEDTIME ORAL 04/01/19 21:00 04/30/19 20:59 04/03/19 21:03 Theophylline (Jerome-Dur) 300 mg Q12HR ORAL 04/01/19 21:00 05/01/19 10:44 04/04/19 09:12 Pacheco Greenwood MD Apr 04, 2019 14:01
[2019-04-04] MEDS: Metoprolol Succinate XL 25mg tab ORAL SCH (14:13)
--- NOTE | 2019-04-04 14:28 | Nephrology Progress Note ---
Assessment/Plan Problem List: (1) Renal failure Assessment: resolved (2) Diabetes (3) COPD exacerbation (4) Syncope (5) Hypotension Assessment Acute renal failure- Cr 2.6 on presentation now normalized Syncope HypoThyroidism mild Anemia Parkinsons DM OOC COPD Depression HTN CAD LL Atx vs Infilt Plan cortisol level- add Starlix for DM monitor renal parameters slow hydrate anemia thompson optimize cardiac and pulmonary status per orders / Consultants Subjective ROS Limited/Unobtainable: No Constitutional: Reports: malaise Objective Objective Last 24 Hour Vital Signs Date Time Temp Pulse Resp B/P (MAP) Pulse Ox O2 Delivery O2 Flow Rate FiO2 04/04/19 14:13 89 113/77 04/04/19 09:18 94 16 96 Room Air 21 04/04/19 08:00 106 04/04/19 08:00 97.5 102 18 117/68 (84) 97 04/04/19 06:00 97 101 84 04/04/19 04:00 97.6 97 19 110/74 (86) 95 04/04/19 04:00 82 04/04/19 00:00 98.0 92 18 102/64 (77) 94 04/04/19 00:00 92 91 110 04/04/19 00:00 99 04/03/19 21:42 76 18 95 Room Air 21 04/03/19 21:42 90 18 95 Room Air 21 04/03/19 21:00 Room Air 04/03/19 20:00 78 04/03/19 20:00 97.7 87 19 120/75 (90) 96 04/03/19 18:00 67 81 83 04/03/19 16:00 85 04/03/19 16:00 97.7 61 20 121/86 (98) 95 Intake and Output 04/03/19 04/04/19 19:00 07:00 Intake Total 380 ml 540 ml Output Total 300 ml 1050 ml Balance 80 ml -510 ml Intake Oral 280 ml 540 ml IV Total 100 ml Output Urine Total 300 ml 1050 ml # Voids 3 2 Laboratory Tests 04/04/19 05:27: Sodium Level 145, Potassium Level 3.8, Chloride Level 109H, Carbon Dioxide Level 26, Anion Gap 10, Blood Urea Nitrogen 5L, Creatinine 1.0, Estimat Glomerular Filtration Rate > 60, Glucose Level 123H, Calcium Level 8.4L, Cortisol AM Sample [Pending], Theophylline Level 11.1 Height (Feet): 6 Height (Inches): 0.00 Weight (Pounds): 195 General Appearance: no apparent distress Cardiovascular: tachycardia, arrhythmia Objective no change Joel Rogers MD Apr 04, 2019 14:28
[2019-04-04 16:00] VITALS: BP 121/78
[2019-04-04] MEDS ORDERED: MONTELUKAST SOD10 MG ORAL (17:28)
--- NOTE | 2019-04-04 17:30 | NUR ---
NURSE NOTES: The patient is stable without acute distress or shortness of breath. Will continue plan of care.
--- NOTE | 2019-04-04 18:29 | Cardiac Electrophysiology PN ---
Assessment/Plan Assessment/Plan 1. Syncopal episode in a pt with bifascicular block. Already ruled out for myocardial infarction with serial cardiac enzymes. The electrolytes are not suggestive of dehydration. No arrhythmias on telemetry. Stress test showed no ischemia. May need EP study as out patient 2. CAD, S/P stent in May 2018. The patient currently denies any chest pain. Continue aspirin and Lipitor and now Toprol 125 daily 3. Paroxysmal atrial fibrillation, in sinus rhythm on Eliquis 5 mg b.i.d. and Toprol. 4. Bifascicular block with right bundle-branch block and left anterior fascicular block. 5. Parkinson's, on Sinemet. 6. Hyperlipidemia. 7. Mild rhabdomyolysis. The patient received IV fluid. 8. Renal failure. Creatinine was 2.6, but followup creatinine has been 1.3 and normal. DANA RN Subjective Subjective No CP or SOB. Remained in sinus tachy. Objective Last 24 Hour Vital Signs Date Time Temp Pulse Resp B/P (MAP) Pulse Ox O2 Delivery O2 Flow Rate FiO2 04/04/19 16:00 87 04/04/19 16:00 98.0 83 18 121/78 (92) 97 04/04/19 14:13 89 113/77 04/04/19 12:10 91 04/04/19 12:05 88 04/04/19 12:00 98.5 85 20 102/68 (79) 96 04/04/19 12:00 87 04/04/19 12:00 82 04/04/19 09:18 94 16 96 Room Air 21 04/04/19 08:00 106 04/04/19 08:00 97.5 102 18 117/68 (84) 97 04/04/19 06:00 97 101 84 04/04/19 04:00 97.6 97 19 110/74 (86) 95 04/04/19 04:00 82 04/04/19 00:00 98.0 92 18 102/64 (77) 94 04/04/19 00:00 92 91 110 04/04/19 00:00 99 04/03/19 21:42 76 18 95 Room Air 21 04/03/19 21:42 90 18 95 Room Air 21 04/03/19 21:00 Room Air 04/03/19 20:00 78 04/03/19 20:00 97.7 87 19 120/75 (90) 96 Intake and Output 04/03/19 04/04/19 19:00 07:00 Intake Total 380 ml 540 ml Output Total 300 ml 1050 ml Balance 80 ml -510 ml Intake Oral 280 ml 540 ml IV Total 100 ml Output Urine Total 300 ml 1050 ml # Voids 3 2 Laboratory Tests Test 04/04/19 05:27 Sodium Level 145 MMOL/L (136-145) Potassium Level 3.8 MMOL/L (3.5-5.1) Chloride Level 109 MMOL/L (98-107) H Carbon Dioxide Level 26 MMOL/L (21-32) Anion Gap 10 mmol/L (5-15) Blood Urea Nitrogen 5 mg/dL (7-18) L Creatinine 1.0 MG/DL (0.55-1.30) Estimat Glomerular Filtration Rate > 60 mL/min (>60) Glucose Level 123 MG/DL (74-106) H Calcium Level 8.4 MG/DL (8.5-10.1) L Cortisol AM Sample Pending Theophylline Level 11.1 ug/mL (10-20) Objective HEAD AND NECK: No JVD. LUNGS: Clear. CARDIOVASCULAR: Regular S1 and S2 with no gallop or murmur. ABDOMEN: Soft. EXTREMITIES: No pitting edema. Alexandr Lozano MD Apr 04, 2019 18:29
--- NOTE | 2019-04-04 19:20 | NUR ---
HAND-OFF: Report given to JOLLY Chavez. The patient is resting on the bed without acute distress or shortness of breath. The patient's bed in the lowest position, call light in reach, and fall and aspiration precaution reinforced. IV site intact and patent. Endorsed plan of care.
--- NOTE | 2019-04-04 19:25 | NUR ---
NURSE NOTES: Received report from JOLLY Damico. Patient in bed awake showing no signs of acute distress. AOx4. Respiration even non labored on room air. No sob noted. IV noted on L AC 20g 0.45% NS@50cc/hr patent and intact. Bed in lowest position, wheels locked and alarm on. call button within reach. All needs attended and met. Will continue plan of care.
[2019-04-04 20:00] VITALS: BP 115/73
[2019-04-04] MEDS ORDERED: VITAMIN D250000 UNI1 ORAL (20:50)
[2019-04-04] MEDS: Tamsulosin 0.4mg cap ORAL SCH (21:26)
[2019-04-04] MEDS: Atorvastatin 80mg tab ORAL SCH (21:27)
[2019-04-04] MEDS: Levemir Flexpen SUBQ SCH (21:45)
[2019-04-05] VITALS: BP 100/51
[2019-04-05] MEDS: Albuterol/Ipratropium 3ml neb HHN PRN ×2 (01:38→08:04)
[2019-04-05 04:00] VITALS: BP 100/56
[2019-04-05] MEDS: NovoLOG Insulin Flexpen SUBQ SCH ×2 (05:37→12:08)
--- NOTE | 2019-04-05 06:26 | General Progress Note ---
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 SNOMED: 746857067 (3) COPD (chronic obstructive pulmonary disease) ICD Codes: J44.9 - Chronic obstructive pulmonary disease, unspecified SNOMED: 13784953 (4) Uncontrolled diabetes mellitus with hyperglycemia ICD Codes: E11.65 - Type 2 diabetes mellitus with hyperglycemia SNOMED: 81816944 Status: stable Assessment/Plan: continue Levemir 10 units qhs continue Starlix 120 mg ac tid continue NISS ac / hs Subjective Allergies: Coded Allergies: SHARK LIVER OIL (Unverified Allergy, Unknown, 12/27/15) Uncoded Allergies: SHARK (Allergy, Mild, RASH, 09/01/15) All Systems: reviewed and negative except above Subjective events noted glucose values are stable Item Value Date Time Bedside Blood Glucose 123 mg/dl H 04/05/19 0537 Bedside Blood Glucose 186 mg/dl H 04/04/19 2146 Bedside Blood Glucose 198 mg/dl H 04/04/19 1708 Bedside Blood Glucose 179 mg/dl H 04/04/19 1206 Bedside Blood Glucose 136 mg/dl H 04/04/19 0630 Objective Last 24 Hour Vital Signs Date Time Temp Pulse Resp B/P (MAP) Pulse Ox O2 Delivery O2 Flow Rate FiO2 04/05/19 06:00 91 04/05/19 05:55 88 04/05/19 05:50 86 04/05/19 04:00 98.4 87 18 100/56 (71) 95 04/05/19 04:00 81 04/05/19 01:39 84 18 99 Room Air 21 79 18 90 04/05/19 00:10 84 04/05/19 00:05 85 04/05/19 00:00 98.7 86 18 100/51 (67) 94 04/05/19 00:00 78 04/05/19 00:00 86 04/04/19 21:24 84 18 94 Room Air 21 04/04/19 21:23 84 18 92 Room Air 21 04/04/19 21:00 Room Air 04/04/19 20:00 100 04/04/19 20:00 98.4 89 18 115/73 (87) 94 04/04/19 19:22 86 18 98 Room Air 21 84 18 91 04/04/19 18:10 100 04/04/19 18:05 89 04/04/19 18:00 85 04/04/19 16:00 87 04/04/19 16:00 98.0 83 18 121/78 (92) 97 04/04/19 14:13 89 113/77 04/04/19 12:10 91 04/04/19 12:05 88 04/04/19 12:00 98.5 85 20 102/68 (79) 96 04/04/19 12:00 87 04/04/19 12:00 82 04/04/19 09:18 94 16 96 Room Air 21 04/04/19 08:00 106 04/04/19 08:00 97.5 102 18 117/68 (84) 97 Intake and Output 04/04/19 04/05/19 18:59 06:59 Intake Total 600 ml Output Total 1100 ml Balance -500 ml Intake Oral 600 ml Output Urine Total 1100 ml Height (Feet): 6 Height (Inches): 0.00 Weight (Pounds): 195 General Appearance: no apparent distress Neck: normal alignment Cardiovascular: normal rate Respiratory/Chest: lungs clear Abdomen: normal bowel sounds Pelvis: normal external exam Objective Current Medications Medications (Trade) Dose Ordered Sig/Tom Route PRN Reason Start Time Stop Time Status Last Admin Dose Admin Albuterol Sulfate (Proventil MDI) 2 puff Q12HR INH 04/01/19 21:00 04/30/19 20:59 04/04/19 21:23 Albuterol/ Ipratropium (Albuterol/ Ipratropium) 3 ml Q4H PRN HHN Shortness of Breath 04/01/19 18:00 04/05/19 17:59 04/05/19 01:38 Amantadine HCl (Symmetrel) 100 mg DAILY ORAL 04/02/19 09:00 05/01/19 08:59 04/04/19 09:12 Apixaban (Eliquis) 5 mg BID ORAL 04/02/19 09:00 05/02/19 08:59 04/04/19 17:08 Aspirin (ASA) 81 mg DAILY ORAL 04/02/19 09:00 05/01/19 08:59 04/04/19 09:11 Atorvastatin Calcium (Lipitor) 80 mg BEDTIME ORAL 04/01/19 21:00 04/30/19 20:59 04/04/19 21:27 Carbidopa/Levodopa (Sinemet 25/100) 1 tab THREE TIMES A DAY ORAL 04/02/19 09:00 05/02/19 08:59 04/04/19 17:08 Dextrose (Dextrose 50%) 25 ml Q30M PRN IV Hypoglycemia 04/03/19 18:30 05/03/19 18:29 Dextrose (Dextrose 50%) 50 ml Q30M PRN IV Hypoglycemia 04/03/19 18:30 05/03/19 18:29 Docusate Sodium (Colace) 100 mg EVERY 12 HOURS ORAL 04/01/19 21:00 04/30/19 20:59 04/04/19 09:11 Famotidine (Pepcid) 40 mg DAILY ORAL 04/02/19 09:00 05/01/19 08:59 04/04/19 09:12 Gabapentin (Neurontin) 600 mg Q8HR ORAL 04/03/19 14:00 05/03/19 13:59 04/05/19 05:37 Hydralazine HCl (Apresoline) 10 mg Q6H PRN IV For High Blood Pressure 04/01/19 18:00 04/30/19 17:59 Insulin Aspart (NovoLOG) BEFORE MEALS AND HS SUBQ 04/01/19 21:00 04/30/19 20:59 04/05/19 05:37 Insulin Detemir (Levemir) 6 units BEDTIME SUBQ 04/03/19 21:00 05/03/19 20:59 04/04/19 21:45 Metoprolol Succinate (Toprol XL) 12.5 mg DAILY ORAL 04/04/19 13:41 05/04/19 13:40 04/04/19 14:13 Nateglinide (Starlix) 120 mg TIAC ORAL 04/03/19 16:30 05/02/19 11:29 04/05/19 05:37 Nitroglycerin (Ntg) 0.4 mg Q5MIN X 3 DOSES PRN SL CHEST PAIN 04/01/19 18:00 04/30/19 16:44 Ondansetron HCl (Zofran) 4 mg Q6H PRN IVP Nausea & Vomiting 04/01/19 18:00 04/30/19 17:59 Polyethylene Glycol (Miralax) 17 gm DAILYPRN PRN ORAL Constipation 04/01/19 18:00 05/01/19 17:59 Sodium Chloride 1,000 ml @ 50 mls/hr Q20H IV 04/01/19 18:00 04/30/19 14:59 04/05/19 02:31 Tamsulosin HCl (Flomax) 0.8 mg BEDTIME ORAL 04/01/19 21:00 04/30/19 20:59 04/04/19 21:26 Theophylline (Jerome-Dur) 300 mg Q12HR ORAL 04/01/19 21:00 05/01/19 10:44 04/04/19 21:26 Pacheco Greenwood MD Apr 05, 2019 06:26
--- NOTE | 2019-04-05 07:43 | NUR ---
HAND-OFF: Report given to JOLLY Kinney.
--- NOTE | 2019-04-05 07:45 | NUR ---
NURSE NOTES: Received report from Scott/RN, Patient is awake, eating breakfast on bed. On room air, no acute distress/SOB noted, denies pain at this time. Able to make needs known. IV on left AC patent, no bleeding or infiltration noted. Bed in low position and locked, Bed alarm engaged, Side-rails up x3. Encouraged to use call light when needed. Call light within reach. will continue to monitor.
[2019-04-05 08:00] VITALS: BP 102/65
[2019-04-05] MEDS: Albuterol 90mcg Inhaler 8gm INH SCH (08:12)
[2019-04-05] MEDS: Theophylline ER 100mg ORAL SCH (08:52)
[2019-04-05] MEDS: Levodopa/Carbidopa 25/100 tab ORAL SCH ×2 (08:52→12:05)
[2019-04-05] MEDS: Eliquis 5mg tablet ORAL SCH (08:52)
[2019-04-05] MEDS: Aspirin Baby 81mg ORAL SCH (08:52)
[2019-04-05] MEDS: Metoprolol Succinate XL 25mg tab ORAL SCH (08:53)
[2019-04-05] MEDS: Amantadine 100mg cap ORAL SCH (08:53)
[2019-04-05] MEDS: Docusate 100mg cap ORAL SCH (08:54)
--- NOTE | 2019-04-05 10:08 | Discharge Summary ---
Discharge Summary Hospital Course Date of Admission Mar 31, 2019 at 13:20 Date of Discharge 04/05/2019 Admitting Diagnosis Syncope HPI José Mcclendon is a 63 year old male who was admitted on Mar 31, 2019 at 13:20 for Syncope Consultations Cardiology Endocrinology Nephrology Procedures Dobutamine stress test Hospital Course Patient seen and examined. Sitting in chair. Denies cp, sob, palpitations, or dizziness. On exam. His alert, awake and oriented x3. lungs cta bilaterally, CVS : S1S2, ext: No edema 63 y/o male admitted to the Hospital with: #Syncope - Etiology include dehydration vs orthostatic hypotension vs underlying cardiac etiology vs anemia vs metabolic from uncontrolled DM and autonomic dysfunction - Monitored on telemetry- no evidence of ventricular arrhythmias -Stress test negative for active ischemia, reduced EF noted - Troponin follow up negative. - Cardiology consult called to Dr. Lozano. - Hypotension responded well to hydration, resume home Metoprol succinate xl, reduce dose to 12.5 mg daily -Cortisol AM- wnl # Acute renal failure- resolved - Etiology include pre renal due to dehydration vs medication induced. - Holding Metformin and ARB. Will continue to hold ARB due to borderline BP. Metformin held - Renal consultation requested with Dr. Pugh - Avoid nephrotoxins # Mild Rhabdomyolysis - CK 386 on admission. Resolved #CAD #HTN #HLD #PAF # Bifascicular EKG block with NSR LAFB and RBBB #Systolic chf - S/p PCI and stents in 06/[address] Henriquez[address] Lazaro outpatient - Apixaban -Statin -Resume metoprolol succinate at reduced dose of 12.5 mg daily -Hold Acei/ARB due to borderline low bp - Follow up cardiology outpatient -monitor and replace electrolytes #Uncontrolled DM (HbA1c 11.8) -Hold Metformin -Nateglinide 120 mg po before meals -Levemir 6 units, based on sliding scale coverage use. Will Discharge on Levemir 8 units BID. -Insulin sliding scale -Endocrine consult # High TSH, Normal T4, low T3, ? Subclinical hypothyroidism vs. Lab error - Endocrinology consult- Dr. Greenwood- repeat TSH 3.7 , no further testing indicated #COPD/Asthma- stable continue home Theophylline. Levels checked therapeutic and not elevated #Moderate protein calorie malnutrition -Nutrition consult -DC with home health- [facility] # Generalized weakness - PT evaluation for dc planning # Constipation -Bowel regimen # Abnormal CXR with LL lobe atelectasis vs infiltrate - No signs of acute pneumonia without cough, sputum, leukocytosis or fever. - Monitor and HOLD antibiotics for now - Lactate was elevated on admission 3.9 and repeat was 2 - most likely due to syncopal event/dehydration # DVT ppx - Apixaban therapy. will continue at 5 mg BID since renal function improved after IVF # GI ppx - PPI # FULL CODE #Diet: fluid restriction to 1.5 l per day #Disposition: Home with home health I spent 35 minutes during this encounter. > 50% spent on counselling and care coordination. d/w cardiology, d/w pcp Dr. Andrea Discharge Medications New Medications: Insulin Detemir (Levemir Flexpen) 100 Unit/1 Ml Insuln.pen 8 UNITS SUBQ Q12HR for 10 Days, #1 EA Nateglinide (Starlix) 120 Mg Tablet 120 MG ORAL TIAC for 30 Days, #90 TAB Changed Medications: Metoprolol Succinate* (Metoprolol Succinate*) 25 Mg Tab.er.24h 12.5 MG ORAL DAILY for 30 Days, #30 TAB (Changed from: 25 MG) Continued Medications: Albuterol Sulfate (Ventolin Hfa) 18 Gm Hfa.aer.ad 2 PUFFS INH EVERY 4 HOURS PRN for Shortness of Breath Amantadine Hcl* (Symmetrel*) 100 Mg Capsule 100 MG ORAL DAILY Apixaban (Eliquis) 5 Mg Tablet 5 MG PO TWICE A DAY, TAB Aspirin* (Aspirin*) 81 Mg Tab.chew 81 MG ORAL DAILY, TAB Atorvastatin Calcium* (Lipitor*) 80 Mg Tablet 80 MG ORAL BEDTIME, TAB Carbidopa/Levodopa 25-100 Mg* (Sinemet 25-100 Mg Tablet*) 1 Each Tablet 1 TAB ORAL THREE TIMES A DAY, TAB Clotrimazole* (Lotrimin*) 15 Gm Cream..g. 1 APPLIC TOPIC TWICE A DAY, GM Dutasteride (Avodart) 0.5 Mg Capsule 0.5 MG ORAL QHS Ergocalciferol (Vitamin D2)* (Vitamin D*) 50,000 Unit Capsule 25945 UNIT ORAL ONCE A WEEK, CAP Ferrous Sulfate* (Ferrous Sulfate*) 325 Mg Tablet 325 MG ORAL DAILY Gabapentin* (Gabapentin*) 600 Mg Tablet 600 MG ORAL THREE TIMES A DAY Hydrocortisone 1% Oint (Hydrocortisone 1% Oint*) Y Oint TP TWICE A DAY, GM Insulin Aspart (Novolog Flexpen) 100 Unit/1 Ml Insuln.pen SQ TID PRN for SLIDING SCALE Linaclotide (Linzess) 145 Mcg Capsule 145 MCG PO DAILY, CAP Mirabegron (Myrbetriq) 25 Mg Tab.er.24h 25 MG PO DAILY, TAB Mirtazapine* (Remeron*) 30 Mg Tablet 45 MG ORAL BEDTIME, TAB Montelukast Sodium* (Montelukast Sodium*) 10 Mg Tablet 10 MG ORAL DAILY, TAB Nitroglycerin 0.4MG table* (Nitroglycerin*) 0.4 Mg Tab.subl 0.4 MG SL .Q5MIN X 3 DOSES PRN for CHEST PAIN, TAB Omeprazole (Omeprazole) 20 Mg Capsule.dr 40 MG ORAL BEDTIME Ramelteon (Rozerem) 8 Mg Tablet 8 MG PO BEDTIME, TAB Roflumilast (Daliresp) 500 Mcg Tablet 250 MCG PO TWICE A DAY, TAB Tamsulosin Hcl (Tamsulosin Hcl*) 0.4 Mg Cap.er.24h 0.8 MG ORAL BEDTIME Theophylline Anhydrous (Theophylline Anhydrous) 300 Mg Tab.er.12h 300 MG PO TWICE A DAY, TAB [Trelegy Ellipta] () 1 PUFF INH DAILY Triamcinolone Acetonide (Triamcinolone Acetonide 0.1% Oint*) 15 Gm Oint...g. 0 TP TWICE A DAY, GM Discontinued Medications: Fluticasone Propionate (Flonase Allergy Relief) 9.9 Ml [place].susp 9.9 ML NS DAILY Formoterol Fumarate (Perforomist) Unknown Strength Vial.neb 1 PUFF IH BID, VIAL Insulin Degludec/Liraglutide (Xultophy 100 Unit-3.6MG/Ml Pen) 3 Ml Insuln.pen 15 UNITS SQ QHS, EA Lisinopril* (Lisinopril*) 2.5 Mg Tablet 2.5 MG ORAL DAILY for HYPERTENSION, TAB 0 Refills Losartan Potassium* (Losartan Potassium*) 25 Mg Tablet 25 MG ORAL DAILY, TAB Metformin Hcl* (Metformin Hcl*) 500 Mg Tablet 500 MG ORAL TWICE A DAY, TAB Oxycodone Hcl* (Roxicodone*) 30 Mg Tablet 30 MG ORAL Q8HR PRN for Severe Pain (Pain Scale 7-10) Discharge Condition Upon Discharge: stable Discharge Disposition Patient was discharged to home with services Discharge Diagnoses: (1) Syncope and collapse (2) Hypotension (3) Uncontrolled diabetes mellitus with hyperglycemia (4) COPD (chronic obstructive pulmonary disease) (5) Atrial fibrillation (6) Anemia (7) Moderate protein-calorie malnutrition Asad Cadena M.D. Apr 05, 2019 10:08
[2019-04-05] MEDS ORDERED: LEVEMIR FL100 UNIT/1 SUBQ (11:24)
[2019-04-05] MEDS ORDERED: STARLIX120 MG ORAL (11:24)
[2019-04-05] MEDS ORDERED: METOPROLOL SUCC25 MG ORAL (11:24)
[2019-04-05 12:00] VITALS: BP 113/62
--- NOTE | 2019-04-05 15:00 | NUR ---
NURSE NOTES: Discharge instruction given to patient, Verbalized understanding. Medication and belonging given to patient. personnel monitor and IV removed, No distress, no bleeding. Patient is in stable condition. Offered Bus token or taxi voucher, but patient refused because he has multiple stops before he gets home. Escorted downstairs by SOFTWARE [employer]LE[employer]IST.
== END 2019-04-05 15:00 | disposition home health service (06) | DRG 315 ==
LOC: EDBD 12:10 → EMR 12:33 → EDBEDREQ 12:55 → 2W 13:20 → EDBEDREQ 14:14 → 2W 04-01 09:09 → 2E 04-01 17:45
DX: I95.89 Other hypotension (principal); M62.82 Rhabdomyolysis; N17.9 Acute kidney failure, unspecified; J98.11 Atelectasis; I45.2 Bifascicular block; E44.0 Moderate protein-calorie malnutrition; J44.1 Chronic obstructive pulmonary disease with (acute) exacerbation; E86.0 Dehydration; E03.9 Hypothyroidism, unspecified; I12.9 Hypertensive chronic kidney disease with stage 1 through stage 4 chronic kidney disease, or unspecified chronic kidney disease; N18.3 Chronic kidney disease, stage 3 (moderate); I48.0 Paroxysmal atrial fibrillation; E11.65 Type 2 diabetes mellitus with hyperglycemia; R55 Syncope and collapse; Z68.26 Body mass index [BMI] 26.0-26.9, adult; I25.10 Atherosclerotic heart disease of native coronary artery without angina pectoris; K59.00 Constipation, unspecified; E78.5 Hyperlipidemia, unspecified; Z95.5 Presence of coronary angioplasty implant and graft; Z79.4 Long term (current) use of insulin; Z79.01 Long term (current) use of anticoagulants; G20 Parkinson's disease
CPT/HCPCS: 36415; 71045; 78452; 80048; 80053; 80061; 80198; 80307; 81003; 82533; 82550; 82570; 82607; 82728; 82746; 82962; 82977; 83036; 83540; 83550; 83605; 83690; 83735; 83880; 84100; 84300; 84439; 84443; 84481; 84484; 84550; 85025; 85610; 85730; 86850; 86900; 86901; 87040; 87081; 93005; 93017; 93306; 94640; 96361; 96374; 99291; J1815; J7030; J7620; S5561